=== PATIENT | female | born 1975 | race Caucasian/White ===

== ENCOUNTER → 2016-06-06 | Outpatient (CLI) | payer BC ==
[~2016-06-06] MED LIST: CITA40TA4 PO; CYCL10TA6 PO; HYDR-4079 PO; IBUP-1050 PO; MOMLX PO; MRPSR/15 PO; NORT25CA PO; NRN600 PO; SENN8.6T25 PO
--- NOTE | 2016-06-06 13:09 | MAMMOGRAPHY REPORT ---
BILATERAL DIGITAL DIAGNOSTIC MAMMOGRAM TOMOSYNTHESIS WITH CAD AND TARGETED BILATERAL ULTRASOUND: 06/06 CLINICAL HISTORY: 41 year-old woman with a history of reduction mammoplasty in 2004 presents with le ft breast pain, mostly throughout the lateral breast that is increasing in intensity. No skin eryth ren or nipple discharge. TECHNIQUE: Bilateral CC and MLO 2-D digital and tomosynthesis images, spot magnification CC and ML v iews were obtained. Current study was also evaluated with a Computer Aided Detection (CAD) system. COMPARISON: Comparison is made to exams dated: 12/15/2010 ultrasound, 12/15/2010 mammogram, and 03/09 mammogram - [facility]. BREAST COMPOSITION: There are scattered areas of fibroglandular density in both breasts. FINDINGS: There are 2 circumscribed subcentimeter masses in the upper outer quadrant of the right b reast. The anterior mass in the upper outer middle one third of the breast has not significantly ch anged in size dating back to 2010, and there is a lucent center, suggesting this represents a lymph node. The second slightly larger circumscribed mass in the posterior breast, along the posterior ni pple line on the MLO view measures 7.6 mm. This may have possibly been present on the 2011 exam alt lucero the borders are not as well seen. Further evaluation with ultrasound was performed. There ar e possible microcalcifications in the central left breast, for which additional spot magnification v iews were obtained. No obvious mass is seen in the left breast. No focal areas of architectural di stortion bilaterally. On the spot magnification views of the left breast, the microcalcifications a re scattered, round and punctate in shape. When comparing back to the prior mammogram, they do not appear significantly increased and there is no suspicious grouping or cluster. Targeted ultrasound was performed in the left breast from the 1:00 through 5:00 axes, in the area of pain pointed out by the patient. The pain was worst with scanning in the 1:00 and 2:00 axes. Norm al fibroglandular tissue is seen in the left breast. There is no evidence of a suspicious solid or cystic mass. Ultrasound performed in the right lateral breast demonstrates an isoechoic round solid appearing mas s in the 9:00 axis, 4 cm from the nipple, measuring 5.3 x 5.5 x 7.2 mm. This is thought to correlat e with the slightly larger more posterior mammographic mass. It is indeterminate, warranting furthe r evaluation with tissue sampling. An oval to reniform, circumscribed hypoechoic solid mass with ce ntral echogenicity and central blood flow is identified in the 8:00 axis, 3 cm from the nipple, most compatible with an intramammary lymph node. This correlates with the stable mammographic mass and is benign. IMPRESSION: ACR BI-RADS CATEGORY 4: SUSPICIOUS, TARGETED ULTRASOUND ACR BI-RADS CATEGORY 4: SUSPICI OUS 1. Ultrasound guided core needle biopsy is recommended for an indeterminate isoechoic solid-appeari ng mass in the 9:00 right breast, 4 cm from the nipple. 2. There is no suspicious mammographic or sonographic abnormality to explain the patient's pain thr oughout the lateral left breast. Therefore, clinical follow-up is recommended. Conservative treatm ent options with mineral supplements, evening primrose oil and NSAIDs were also discussed with the p atient. 3. Pending benign pathology results and the right breast, would recommend routine mammography in on e year. These results and recommendations were discussed with the patient at the time of the exam. Approximately 10% of breast cancers are not detected with mammography. A negative mammographic repor t should not delay biopsy if a clinically suggestive mass is present. Denise Denny M.D. ay/:06/06/2016 12:37:32 Supervisor Hand Workers: Bailee GILBERT(R)(M), [facility] letter sent: Abnormal 4/5 BI-RADS Code: ACR BI-RADS Category 4: Suspicious Ultrasound BI-RADS: ACR BI-RADS Category 4: Suspic ious
== END | disposition home or self-care (01) ==
LOC: C.MAMM 10:42
PROVIDERS: ATTEND Family Medicine
DX: N63 Unspecified lump in breast (principal); N64.4 Mastodynia

== ENCOUNTER → 2016-06-13 | Outpatient (CLI) | payer BC ==
--- NOTE | 2016-06-13 11:59 | Discharge Instructions ---
Discharge Instructions Procedure Procedure Date: June 13, 2016. Reason for visit: Right Mass. Discharge Discharge Date: June 13, 2016. Discharge Diagnosis: post right breast ultrasound guided core biopsy Instructions Activity Recommendations: Additional Limitations (see below) Return to School/Work: no limitations Recommended Home Diet: No Limitations Provider Instructions: ACTIVITY RECOMMENDATIONS: * No lifting, pushing, pulling or exercising the affected side for three days. RETURN TO SCHOOL/WORK: * You may return to work/school after the procedure, but do not perform any strenuous activities for 24 to 48 hours. MEDICATIONS: * Tylenol (two 325 mg) every four to six hours if needed for mild pain (if not allergic to Tylenol). DIET: * Resume previous diet. SPECIAL CARE INSTRUCTIONS: * Keep biopsy site dry for 24 hours. May shower after 24 hours, but do not soak (bathe) incision. * May remove Tegaderm (plastic patch) tomorrow AFTER showering. * Leave the steri-strips on for one week. Allow the steri-strips to fall off by themselves. If not off after one week, you may remove them. You may place a Bandaid crosswise over the strips, if desired. * Apply ice 10 minutes on and 10 minutes off as needed. * Wear a bra at bedtime to sleep more comfortably for 2-3 days. * Your referring physician should have the results after approximately 5 to 7 business days. * Call for unusual bleeding, fever, drainage, etc or if you have any questions call [phone] during normal business hours or after hours call Dr Denny, . FOLLOW UP VISIT: Follow-up with Referring Physician as scheduled. Allergies Coded Allergies: Prednisone (Verified Allergy, Unknown, Hot/Cold flashes, shakiness, emotions run wild., 12/20/15) Reported by PTYumiko Kay Recommendations: Call your doctor if: * Temperature above 101 degrees * Pain not relieved by pain medicine ordered * There is increased drainage or redness from any incision * You have any unanswered questions or concerns. Your Doctors Instructions noted above were prepared by provider Denise Denny. Patient Signature Section: Patient Instructions Signature Page Lena Max Patient (or Guardian) Signature/Date: I have read and understand the instructions given to me by my caregivers. Caregiver/RN/Doctor Signature/Date: The above-named patient and/or guardian has received patient instructions on this date. + Original Patient Signature Page (only) stays with chart. Please make copy for patient.
--- NOTE | 2016-06-13 12:50 | MAMMOGRAPHY REPORT ---
UNILATERAL RIGHT DIGITAL DIAGNOSTIC MAMMOGRAM TOMOSYNTHESIS: 06/13/2016 CLINICAL HISTORY: Indeterminate isoechoic solid-appearing mass in the 9:00 right breast, 4 cm from t he nipple. Patient presents for ultrasound-guided core needle biopsy. History of reduction mammopl asty. Please refer to the report from right breast ultrasound guided core biopsy performed [facility] for full detail. IMPRESSION: POST PROCEDURE IMAGING FOR MARKER PLACEMENT Please refer to the report from right breast ultrasound guided core biopsy performed at the [facility] for full detail. Approximately 10% of breast cancers are not detected with mammography. A negative mammographic repor t should not delay biopsy if a clinically suggestive mass is present. Denise Denny M.D. ay/:06/13/2016 12:00:14 Echo Vasc Tech: Milana GILBERT(José)(M), [facility] BI-RADS Code: Post Procedure Imaging For Marker Placement
--- NOTE | 2016-06-13 16:05 | MAMMOGRAPHY REPORT ---
ULTRASOUND GUIDED BIOPSY RIGHT BREAST: 06/13/2016 CLINICAL HISTORY: Indeterminate isoechoic solid 5.5 mm mass in the 9:00 right breast. Patient prese nts for ultrasound-guided core needle biopsy. History of reduction mammoplasty. COMPARISON: Comparison is made to exams dated: 06/06/2016 ultrasound, 06/06/2016 mammogram, 12/15/2010 ultrasound, 12/15/2010 mammogram, and 03/28/2005 mammogram - [facility]. PATIENT CONSENT: The procedure, risks and benefits were discussed with the patient and informed writ ten consent was obtained. Specific risks to this procedure include: bleeding, infection, puncture of adjacent structure, nontarget biopsy, sampling error, metal allergy and medication reaction. PROCEDURE DESCRIPTION: A time out was performed and the right breast was agreed as the site of biops y. The skin was prepped and draped in the usual sterile fashion. The isoechoic solid-appearing mass in the 9:00 right breast was chosen as the target for biopsy. Subcutaneous and intraparenchymal 1% b uffered lidocaine was administered as local anesthesia. A skin incision was made. Through the incis ion, 5 samples were taken with a 14 gauge Achieve biopsy device. A metallic marker was placed at the biopsy site. Hemostasis was achieved after manual compression. The patient tolerated the procedure well and there was no immediate complication. The samples were sent to the pathology department in an appropriately labeled container. Post procedure right CC, XCCL and ML tomosynthesis images were obtained. There is a new ribbon-shap ed metallic biopsy marker within the circumscribed mass in the 9:00 posterior right breast. No sign ificant postbiopsy hematoma is identified. Pathology results are pending. IMPRESSION: ULTRASOUND GUIDED BIOPSY Status post ultrasound guided core needle biopsy of an indeterminate solid mass in the 9:00 right br east, with biopsy marker placed at the site. The patient will receive notification of the biopsy results from her referring physician. Denise Denny M.D. ay/:06/13/2016 13:19:50 Hand Cloth Cutter: Milana CORREIA)(M), [facility]
== END | disposition home or self-care (01) ==
LOC: C.MAMM 10:42
PROVIDERS: ATTEND Family Medicine
DX: N63 Unspecified lump in breast (principal)

== ENCOUNTER 2020-01-02 10:10 | Inpatient (IN) ==
[2020-01-02] MEDS ORDERED: DEXAMETHASONE SOD INJ 4 MG/ML VIAL IV STA (10:24)
[2020-01-02] MEDS ORDERED: SODIUM CHLORIDE 0.9% 1000ML 2,000 ML IV ONE (10:33)
[2020-01-02] MEDS ORDERED: ACETAMINOPHEN 1,000 MG/100 ML VIAL IV STA (10:33)
[2020-01-02] MEDS ORDERED: HALOPERIDOL LACTATE 5 MG/ML 1 ML VIAL ONE ×2 (10:44→10:49)
[2020-01-02] MEDS ORDERED: RAPID SEQUENCE INDUCTION BAG ONE (10:44)
[2020-01-02] MEDS ORDERED: diphenhydrAMINE 50 MG/ML VIAL ONE (10:44)
[2020-01-02] MEDS ORDERED: LORazepam 2 MG/4 ML VIAL ONE (10:44)
[2020-01-02] MEDS ORDERED: LORazepam 1 ML IM ONE (10:45)
[2020-01-02] MEDS ORDERED: diphenhydrAMINE 50 MG/ML VIAL IM ONE (10:45)
[2020-01-02] MEDS ORDERED: HALOPERIDOL LACTATE 5 MG/ML 1 ML VIAL IM ONE (10:45)
[2020-01-02 10:51] LABS: Basophils # (auto) 0.01 K/uL (0-0.2); Basophils % (auto) 0.2 %; Eosinophils # (auto) 0.01 K/uL (0-0.5); Eosinophils % (auto) 0.2 %; Hematocrit (blood only) 33.5 % (37-47); Hemoglobin 10.6 g/dL (12.0-16.0); Immature Granulocytes # (auto) 0.02 K/uL (0.00-0.02); Immature Granulocytes % (auto) 0.4 %; Lymphocytes # (auto) 0.88 K/uL (1.2-3.4); Lymphocytes % (auto) 16.9 %; Mean Corpuscular Hemoglobin 29.2 pg (25-34); Mean Corpuscular Hgb Conc 31.6 g/dL (32-36); Mean Corpuscular Volume 92.3 fL (80-100); Mean Platelet Volume 10.7 fL (7.4-10.4); Monocytes # (auto) 0.38 K/uL (0.11-0.59); Monocytes % (auto) 7.3 %; Neutrophils # (auto) 3.91 K/uL (1.4-6.5); Platelet Count 173 K/uL (130-400); RDW Coefficient of Variation 13.8 % (11.5-14.5); RDW Standard Deviation 46.7 fL (36.4-46.3); Red Blood Count 3.63 M/uL (4.2-5.4); White Blood Count 5.21 K/uL (4.8-10.8)
[2020-01-02] MEDS ORDERED: ETOMIDATE 2 MG/ML 20 ML VIAL IV ONE (11:05)
[2020-01-02 11:06] LABS: Alanine Aminotransferase 17 U/L (12-78); Albumin Level 2.6 gm/dl (3.4-5.0); Aspartate Aminotransferase 31 U/L (15-37); BUN Creatinine Ratio 12.2 (10-20); Blood Urea Nitrogen 17 mg/dl (7-18); Calcium 7.7 mg/dl (8.5-10.1); Carbon Dioxide 26 mmol/L (21-32); Chloride 109 mmol/L (98-107); Est GFR (African American) 55.6; Glucose 203 mg/dl (70-99); Magnesium 2.1 mg/dl (1.8-2.4); Potassium 3.7 mmol/L (3.5-5.1); Sodium 138 mmol/L (136-145)
[2020-01-02] MEDS ORDERED: ROCURONIUM BROMIDE 10 MG/ML 5 ML VIAL IV SCH (11:06)
[2020-01-02] MEDS ORDERED: PROPOFOL IV EMULSION 10 MG/ML 100 ML VIAL IV ONE (11:08)
[2020-01-02 11:09] LABS: Albumin Globulin Ratio 0.7 (0.9-2); Alkaline Phosphatase 83 U/L (45-117); Bilirubin,Total 0.2 mg/dl (0.2-1); Globulin 3.6 gm/dl (2.5-4.0); Total Protein 6.2 gm/dl (6.4-8.2); Troponin I < 0.015 ng/ml (0-0.045)
[2020-01-02 11:10] LABS: Partial Thromboplastin Ratio 1.6; Partial Thromboplastin Time 43.8 Seconds (21.0-31.0); Prothrombin Time 10.8 Seconds (9.0-12.0)
[2020-01-02] MEDS ORDERED: STAT IV Infusion **Titration per Protocol STA ×2 (11:14→15:15)
[2020-01-02] MEDS ORDERED: PROPOFOL BOLUS FROM BAG IV PRN (11:14)
[2020-01-02] MEDS: propofoL 1,000 MG/100 ML VIAL IV SCH ×2 (11:35→17:32)
[2020-01-02 12:14] LABS: Appearance Urine Clear (Clear); Bilirubin Urine Negative (Negative); Blood Urine Trace (Negative); Color Urine Yellow; Epithelial Cell Urine Auto >30 /lpf (0-5); Glucose Urine UA 1+ (Negative); Ketones Urine Negative (Negative); Leukocyte Esterase Urine Negative (Negative); Nitrite Urine Negative (Negative); Protein Urine 2+ (Negative); RBC Urine Automated 0-4 /hpf (0-4); Specific Gravity Urine 1.015 (1.000-1.030); Urobilinogen Urine Negative (Negative)
[2020-01-02] MEDS ORDERED: OPTIRAY 320 125ml IV ONE (12:15)
[2020-01-02 12:21] LABS: Pregnancy Test, Urine Negative (Negative)
--- NOTE | 2020-01-02 12:22 | XRay Report ---
XR chest 1V portable HISTORY: SEPSIS COMPARISON: Chest 11/25/2015. FINDINGS: No pneumothorax. There are low lung volumes. Small bilateral pleural effusions. The heart i s enlarged. There is perihilar interstitial and vascular thickening with perihilar airspace opacities . This most pronounced within the right upper lobe. Findings favor severe pulmonary edema. A pneumoni a could also have a similar appearance. Cervical spinal fusion hardware is noted. Endotracheal tube t erminates 4 cm from the yoni. IMPRESSION: 1. Perihilar airspace opacities, cardiomegaly, small bilateral pleural effusions. Findings favor haley re pulmonary edema. A pneumonia could also have a similar appearance. 2. Endotracheal tube terminates 4 cm from the yoni. ACT 112: Negative or not required by law. Electronically signed by: Parviz Stovall M.D. 01/02/2020 12:21 PM
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
[2020-01-02 12:31] LABS: Mucus Urine Present (None Prsent)
[2020-01-02 12:32] LABS: Bacteria Urine Automated 1+ (Negative)
--- NOTE | 2020-01-02 12:42 | CT Scan Report ---
CT OF THE HEAD WITHOUT CONTRAST CLINICAL HISTORY: Altered mental status. COMPARISON STUDY: No previous studies for comparison. CT DOSE: 765.09 mGycm TECHNIQUE: Helical axial images of the head were obtained without IV contrast. Automated exposure con trol was utilized for the study. A dose lowering technique was utilized adhering to the principles o f ALARA. FINDINGS: This exam is mildly compromised by artifact. No acute intracranial hemorrhage, midline shif t or mass effect is present. The ventricular system is unremarkable. The basal cisterns are patent. N o extra-axial collections are present. There are no findings to suggest acute dural sinus thrombosis or acute territorial infarct. No significant calvarial abnormalities are present. Orogastric tube is at least slightly coiled within the nasopharynx. The tip is within the distal esophagus, as shown on chest CT which will be reported separately. There is mild sinus mucosal thickening. There are secreti ons within the nasopharynx. IMPRESSION: 1. No acute intracranial findings. 2. Orogastric tube coiled within the nasopharynx. Tip of tube is within the distal esophagus, as show n on chest CT which will be reported separately. ACT 112: Negative or not required by law. Electronically signed by: Steve Blackwell M.D. 01/02/2020 12:40 PM
--- NOTE | 2020-01-02 12:48 | CT Scan Report ---
CHEST CTA for PULMONARY ARTERIES CT DOSE: 484.28 mGycm HISTORY: Cough. Positive for Coronavirus. TECHNIQUE: Multiaxial CT images of the chest were performed following the intravenous administration of contrast to evaluate the pulmonary arteries. Maximal intensity projection images were also obtaine d. A dose lowering technique was utilized adhering to the principles of ALARA. COMPARISON STUDY: None. FINDINGS: Normal caliber thoracic aorta with no evidence for dissection. No pleural or pericardial ef fusions. The heart is mildly enlarged. Suboptimal evaluation of the pulmonary arteries due to the pat ient's overlapping arms and respiratory motion artifact. The majority of the subsegmental pulmonary a rteries are nondiagnostic. The remaining pulmonary arteries show no definite filling defects to sugge st pulmonary embolus. Borderline dilated main pulmonary artery measuring up to 3 cm in diameter. Limi maisha views the upper abdomen demonstrate normal adrenal glands. The liver and spleen may be enlarged. Hepatic steatosis is noted. A nasogastric tube terminates in the distal esophagus. This should be adv anced by approximately 10 cm. Endotracheal tube terminates 2 cm from the yoni. A few prominent medi astinal lymph nodes which are likely reactive. No fractures within the visualized osseous structures. No pneumothorax. Extensive bilateral consolidative airspace opacities, right greater than left. IMPRESSION: 1. No evidence for pulmonary embolus with limitations as described above. 2. Extensive bilateral consolidative airspace opacities, right greater than left. This likely represe nts a pneumonia. 3. The nasogastric tube terminates in the distal esophagus. This should be advanced by approximately 10 cm. 4. The endotracheal tube terminates 2 cm from the yoni. ACT 112: Negative or not required by law. Electronically signed by: Parviz Stovall M.D. 01/02/2020 12:46 PM
[2020-01-02 13:25] LABS: Allen Test Pos (Pos); Base Excess ABG -7.1 mEq/L (-9-1.8); HCO3 ABG 21 mmol/L (19-24); Oxygen Saturation ABG 92.1 % (90-95); PCO2 ABG 52 mmHg (35-46); PO2 ABG 69 mmHg (80-95); pH ABG 7.21 (7.35-7.45)
[2020-01-02 13:48] LABS: Amphetamines+Metham, Urine Neg (Neg); Barbiturates, Urine Neg (Neg); Benzodiazepine, Urine Neg (Neg); Cocaine, Urine Neg (Neg); MDMA (Ecstacy), Urine Neg (Neg); Methadone, Urine Neg (Neg); Opiate, Urine Pos (Neg); Phencyclidine, Urine Neg (Neg)
--- NOTE | 2020-01-02 13:59 | History & Physical Report ---
Date of Service January 02, 2020 Assessment & Plan (1) Pneumonia due to COVID-19 virus: Son recently ill with COVID-19. Patient was seen in outpatient clinic on 10/31/19. SARS-CoV-2 PCR ordered- results pending. Patient presented to ED with fever, dyspnea, hypoxia, delirium. Chest x-ray and CT demonstrated bilateral infiltrates consistent with COVID pneumonia. SARS-CoV-2 PCR in ED positive. Lymphocyte count 880. Procalcitonin 0.60. Intubated in ED & admitted to ICU. Consult Pulmonary Medicine / CCM. Further COVID-specific management per Pulm / CCM. (2) Acute respiratory failure with hypoxia: O2 sats 72% on RA at home when EMS arrived. Intubated in ED. No apparent pulmonary emboli per CTA chest. Hypoxia probably secondary to COVID pneumonia. Continue supplemental O2 and ventilatory support as needed. (3) Altered mental status: Very confused this morning. No acute findings on CT of head. Probably multifactorial toxic / metabolic encephalopathy due to hypoxia, COVID- 19 infection, etc. (4) SIMIN (obstructive sleep apnea): Sleep apnea on BiPAP at home. Resume HS BiPAP after extubation. (5) Chronic narcotic use: Chronic neck and back pain treated with oxycodone / acetaminophen. Monitor for signs / symptoms of narcotic withdrawal. (6) Abnormal urinalysis: UA shows 10-30 WBC's, negative leukocyte esterase, negative nitrites, many epithelial cells. UTI unlikely. (7) GERD (gastroesophageal reflux disease): Continue PPI. (8) Diabetes mellitus type 2, controlled: Diet-controlled. Random glucose in ED 203. Received dexamethasone. Check Hgb A1c. Monitor blood sugars. Insulin coverage per protocol. (9) DVT prophylaxis: SQ enoxaparin. Ambulate when able. (10) Discharge planning issues: Discharge disposition to be determined. Family Medicine follow-up with Dr. Barone. Uriah Pineda given update by phone. He would appreciate updates from providers. His cell #: [phone] History of Present Illness Chief Complaint: cough, SOB, confusion Primary Care Provider: Neal Barone MD 44 YO female followed by Dr. Barone. History of diabetes mellitus type 2, chronic pain, and other problems noted below. The following history obtained from ED staff, clinic records, son by phone. Pt developed fever and cough about 1 week ago. She was seen at [facility]] 2 days prior to admission. Vital signs and O2 sats were OK. SARS-CoV-2 PCR was ordered (results pending). Today she was more SOB and confused. EMS summoned. O2 saturation was 72% in the field. Received O2 and brought to the ED for further management. In the ED she was noted to be febrile and tachycardic. She was very confused and agitated. Intubated in ED and placed on mechanical ventilation. Son diagnosed with COVID-19 this week. Allergies Allergy/AdvReac Type Severity Reaction Status Date / Time prednisone Allergy Unknown Hot/Cold Verified 01/02/20 12:27 flashes, shakiness, emotions run wild. Home Medications Medication Instructions Recorded Confirmed Type albuterol sulfate 2 puff INHALATION QID PRN 01/02/20 01/02/20 History buspirone 7.5 - 15 mg PO BID PRN 01/02/20 01/02/20 History cholecalciferol (vitamin D3) 10 mcg PO QAM 01/02/20 01/02/20 History [Vitamin D3] cyclobenzaprine 10 mg PO TID PRN 01/02/20 01/02/20 History diclofenac sodium [Voltaren] 4 g TOPICAL QID 01/02/20 01/02/20 History gabapentin 1,200 mg PO TID 01/02/20 01/02/20 History indomethacin 50 mg PO TIDM PRN 01/02/20 01/02/20 History morphine 15 mg PO BID PRN 01/02/20 01/02/20 History mv,Ca,min-iron kwwn-KB-epeicb 1 tab PO DAILY 01/02/20 01/02/20 History [Hair,Skin and Nails] omeprazole 20 mg PO DAILYBB 01/02/20 01/02/20 History oxycodone-acetaminophen 1 tab PO Q8H PRN 01/02/20 01/02/20 History polyethylene glycol 3350 [Miralax] 17 g PO DAILY PRN 01/02/20 01/02/20 History pyridoxine (vitamin B6) [Vitamin 250 mg PO QAM 01/02/20 01/02/20 History B-6] sennosides [senna] 34.4 mg PO QAM PRN 01/02/20 01/02/20 History topiramate 25 mg PO BID 01/02/20 01/02/20 History venlafaxine 75 mg PO DAILY 01/02/20 01/02/20 History Past Med/Surg History Medical History (Updated 01/02/20 @ 15:50 by Crow Stapleton MD) Anxiety Back pain Chronic narcotic use Diabetes mellitus type 2, controlled GERD (gastroesophageal reflux disease) SIMIN (obstructive sleep apnea) current settings BIPAP 14 IPAP/ 10 EPAP start ramp [id number] T2DM (type 2 diabetes mellitus) a1c 7.1 12/17/19 not on any oral hypoglycemics Surgical History (Updated 01/02/20 @ 15:50 by Crow Stapleton MD) History of bilateral breast reduction surgery Status post breast reduction Status post cervical spinal fusion Status post section Status post hysterectomy Family History Grandmother (Maternal) Breast cancer Father Arthritis Social History Smoking Status: Unknown if ever smoked Preferred Language: [place] Communication Ability: Impaired Communication Ability Comment: vented Hospital Fellow Required: No Beliefs That Will Affect Care: None marital status: / Current Living Situation Comment: [facility] Feels Safe at Home: Yes Assistive Devices: Oxygen - Continuous Review of Systems Review of Systems: Unobtainable due to cognitive status and Unobtainable due to endotracheal tube Physical Exam Physical Exam: VS- as noted Constitutional- adult female, acutely ill Eyes- PERRL, anicteric sclerae, conjunctivae normal ENMT- external ear and nose normal; oral ETT Neck- trachea midline; no thyromegaly Respiratory- scattered rales; no significant wheezing Cardiovascular- distant heart sounds; RRR, no murmur/gallop/rub appreciated; no JVD; no pretibial edema; normal capillary refill Chest- no abnormalities Abdomen- normal bowel sounds, soft, nontender, nondistended; no palpable masses or hepatosplenomegaly Musculoskeletal- no cyanosis Skin- warm & dry; normal color; no rashes Neurologic- sedated; moves all 4 extremities Psychiatric- sedated Genitourinary- Torrez cath Lymphatic- no cervical adenopathy Results & Data Results & Data ([facility]) Vital Signs (Past 12 Hours) Vital Signs Temp Pulse Resp BP Pulse Ox 01/02/20 13:01 130 H 21 94 01/02/20 13:00 133 H 29 H 110/75 94 01/02/20 12:45 132 H 19 94 01/02/20 12:42 135 H 25 H 137/80 91 01/02/20 12:40 136 H 29 H 01/02/20 12:01 129 H 16 99 01/02/20 12:00 129 H 16 135/79 100 01/02/20 11:46 131 H 16 97 01/02/20 11:45 38.2 C H 130 H 16 137/80 97 01/02/20 11:30 124 H 16 111/70 95 01/02/20 11:18 122 H 16 97 01/02/20 11:08 94 01/02/20 10:18 117 H 13 103/72 98 Laboratory Results Laboratory Results - last 24 hr 01/02/20 01/02/20 01/02/20 10:20 10:20 10:20 WBC 5.21 RBC 3.63 L Hgb 10.6 L Hct 33.5 L MCV 92.3 MCH 29.2 MCHC 31.6 L RDW Std Deviation 46.7 H RDW Coeff of Nacho 13.8 Plt Count 173 MPV 10.7 H Immature Gran % (Auto) 0.4 Neut % (Auto) 75.0 Lymph % (Auto) 16.9 [place] % (Auto) 7.3 Eos % (Auto) 0.2 Baso % (Auto) 0.2 Neut # (Auto) 3.91 Lymph # (Auto) 0.88 L [place] # (Auto) 0.38 Eos # (Auto) 0.01 Baso # (Auto) 0.01 Immature Gran # (Auto) 0.02 PT 10.8 INR 1.0 APTT 43.8 H PTT Ratio 1.6 ABG pH ABG pCO2 ABG pO2 ABG HCO3 ABG O2 Saturation ABG Base Excess Ilya Test Barometric Pressure Oxygen Given Sodium 138 Potassium 3.7 Chloride 109 H Carbon Dioxide 26 Anion Gap 3.0 BUN 17 Creatinine 1.35 H Est Cr Clr Drug Dosing Not Reportable Est GFR ( Amer) 55.6 Est GFR (Non-Af Amer) 48.0 BUN/Creatinine Ratio 12.2 Glucose 203 H Lactate Calcium 7.7 L Magnesium 2.1 Total Bilirubin 0.2 AST 31 ALT 17 Alkaline Phosphatase 83 Troponin I < 0.015 Total Protein 6.2 L Albumin 2.6 L Globulin 3.6 Albumin/Globulin Ratio 0.7 L Procalcitonin Urine Color Urine Appearance Urine pH Ur Specific [place] Urine Protein Urine Glucose (UA) Urine Ketones Urine Blood Urine Nitrite Urine Bilirubin Urine Urobilinogen Ur Leukocyte Esterase Urine WBC (Auto) Urine RBC (Auto) U Hyaline Cast (Auto) U Epithel Cells (Auto) Urine Bacteria (Auto) Ur Renal Epithelial Cell WBC Casts Urine Mucus Urine Test Urine Opiates Screen U Codeine Confrm GC/MS Ur Morphine (GC/MS) Ur Hydrocodone (GC/MS) Ur Norhydrocodone Ur Noroxycodone Urine Oxycodone (GC/MS) U Oxymorphone GC/MS Ur Methadone, Qual Ur Hydromorphone (GC/MS) Urine Barbiturates Ur Phencyclidine (PCP) U Amphetamin/Meth Scrn MDMA (Ecstasy) Screen U Benzodiazepines Scrn Ur Cocaine Metabolite U Marijuana (THC) Screen Drug Screen Comment COVID-19 Eval Order SARS-CoV-2, RNA, NAAT 01/02/20 01/02/20 01/02/20 10:20 10:20 11:02 WBC RBC Hgb Hct MCV MCH MCHC RDW Std Deviation RDW Coeff of Nacho Plt Count MPV Immature Gran % (Auto) Neut % (Auto) Lymph % (Auto) [place] % (Auto) Eos % (Auto) Baso % (Auto) Neut # (Auto) Lymph # (Auto) [place] # (Auto) Eos # (Auto) Baso # (Auto) Immature Gran # (Auto) PT INR APTT PTT Ratio ABG pH ABG pCO2 ABG pO2 ABG HCO3 ABG O2 Saturation ABG Base Excess Ilya Test Barometric Pressure Oxygen Given Sodium Potassium Chloride Carbon Dioxide Anion Gap BUN Creatinine Est Cr Clr Drug Dosing Est GFR ( Amer) Est GFR (Non-Af Amer) BUN/Creatinine Ratio Glucose Lactate Cancelled Calcium Magnesium Total Bilirubin AST ALT Alkaline Phosphatase Troponin I Total Protein Albumin Globulin Albumin/Globulin Ratio Procalcitonin 0.60 H Urine Color Urine Appearance Urine pH Ur Specific [place] Urine Protein Urine Glucose (UA) Urine Ketones Urine Blood Urine Nitrite Urine Bilirubin Urine Urobilinogen Ur Leukocyte Esterase Urine WBC (Auto) Urine RBC (Auto) U Hyaline Cast (Auto) U Epithel Cells (Auto) Urine Bacteria (Auto) Ur Renal Epithelial Cell WBC Casts Urine Mucus Urine Test Urine Opiates Screen U Codeine Confrm GC/MS Ur Morphine (GC/MS) Ur Hydrocodone (GC/MS) Ur Norhydrocodone Ur Noroxycodone Urine Oxycodone (GC/MS) U Oxymorphone GC/MS Ur Methadone, Qual Ur Hydromorphone (GC/MS) Urine Barbiturates Ur Phencyclidine (PCP) U Amphetamin/Meth Scrn MDMA (Ecstasy) Screen U Benzodiazepines Scrn Ur Cocaine Metabolite U Marijuana (THC) Screen Drug Screen Comment COVID-19 Eval [facility] SARS-[facility]-2, RNA, NAAT 01/02/20 01/02/20 01/02/20 11:02 11:45 11:45 WBC RBC Hgb Hct MCV MCH MCHC RDW Std Deviation RDW Coeff of Nacho Plt Count MPV Immature Gran % (Auto) Neut % (Auto) Lymph % (Auto) [place] % (Auto) Eos % (Auto) Baso % (Auto) Neut # (Auto) Lymph # (Auto) [place] # (Auto) Eos # (Auto) Baso # (Auto) Immature Gran # (Auto) PT INR APTT PTT Ratio ABG pH ABG pCO2 ABG pO2 ABG HCO3 ABG O2 Saturation ABG Base Excess Ilya Test Barometric Pressure Oxygen Given Sodium Potassium Chloride Carbon Dioxide Anion Gap BUN Creatinine Est Cr Clr Drug Dosing Est GFR ( Amer) Est GFR (Non-Af Amer) BUN/Creatinine Ratio Glucose Lactate Calcium Magnesium Total Bilirubin AST ALT Alkaline Phosphatase Troponin I Total Protein Albumin Globulin Albumin/Globulin Ratio Procalcitonin Urine Color Yellow Urine Appearance Clear Urine pH 6.0 Ur Specific [place] 1.015 Urine Protein 2+ H Urine Glucose (UA) 1+ H Urine Ketones Negative Urine Blood Trace H Urine Nitrite Negative Urine Bilirubin Negative Urine Urobilinogen Negative Ur Leukocyte Esterase Negative Urine WBC (Auto) 10-30 H Urine RBC (Auto) 0-4 U Hyaline Cast (Auto) 5-10 H U Epithel Cells (Auto) >30 H Urine Bacteria (Auto) 1+ H Ur Renal Epithelial Cell Not Reportable WBC Casts 1-5 H Urine Mucus Present A Urine Test Urine Opiates Screen Pos H U Codeine Confrm GC/MS Ur Morphine (GC/MS) Ur Hydrocodone (GC/MS) Ur Norhydrocodone Ur Noroxycodone Urine Oxycodone (GC/MS) U Oxymorphone GC/MS Ur Methadone, Qual Neg Ur Hydromorphone (GC/MS) Urine Barbiturates Neg Ur Phencyclidine (PCP) Neg U Amphetamin/Meth Scrn Neg MDMA (Ecstasy) Screen Neg U Benzodiazepines Scrn Neg Ur Cocaine Metabolite Neg U Marijuana (THC) Screen Neg Drug Screen Comment COVID-19 Eval Order SARS-CoV-2, RNA, NAAT POSITIVE A* 01/02/20 01/02/20 01/02/20 11:45 12:09 13:16 WBC RBC Hgb Hct MCV MCH MCHC RDW Std Deviation RDW Coeff of Nacho Plt Count MPV Immature Gran % (Auto) Neut % (Auto) Lymph % (Auto) [place] % (Auto) Eos % (Auto) Baso % (Auto) Neut # (Auto) Lymph # (Auto) [place] # (Auto) Eos # (Auto) Baso # (Auto) Immature Gran # (Auto) PT INR APTT PTT Ratio ABG pH 7.21 L ABG pCO2 52 H ABG pO2 69 L ABG HCO3 21 ABG O2 Saturation 92.1 ABG Base Excess -7.1 Ilya Test Pos Barometric Pressure 735.5 Oxygen Given 70% Sodium Potassium Chloride Carbon Dioxide Anion Gap BUN Creatinine Est Cr Clr Drug Dosing Est GFR ( Amer) Est GFR (Non-Af Amer) BUN/Creatinine Ratio Glucose Lactate Calcium Magnesium Total Bilirubin AST ALT Alkaline Phosphatase Troponin I Total Protein Albumin Globulin Albumin/Globulin Ratio Procalcitonin Urine Color Urine Appearance Urine pH Ur Specific [place] Urine Protein Urine Glucose (UA) Urine Ketones Urine Blood Urine Nitrite Urine Bilirubin Urine Urobilinogen Ur Leukocyte Esterase Urine WBC (Auto) Urine RBC (Auto) U Hyaline Cast (Auto) U Epithel Cells (Auto) Urine Bacteria (Auto) Ur Renal Epithelial Cell WBC Casts Urine Mucus Urine Test Negative Urine Opiates Screen U Codeine Confrm GC/MS Pending Ur Morphine (GC/MS) Pending Ur Hydrocodone (GC/MS) Pending Ur Norhydrocodone Pending Ur Noroxycodone Pending Urine Oxycodone (GC/MS) Pending U Oxymorphone GC/MS Pending Ur Methadone, Qual Ur Hydromorphone (GC/MS) Pending Urine Barbiturates Ur Phencyclidine (PCP) U Amphetamin/Meth Scrn MDMA (Ecstasy) Screen U Benzodiazepines Scrn Ur Cocaine Metabolite U Marijuana (THC) Screen Drug Screen Comment Pending COVID-19 Eval Order SARS-CoV-2, RNA, NAAT 01/02/20 14:50 WBC RBC Hgb Hct MCV MCH MCHC RDW Std Deviation RDW Coeff of Nacho Plt Count MPV Immature Gran % (Auto) Neut % (Auto) Lymph % (Auto) [place] % (Auto) Eos % (Auto) Baso % (Auto) Neut # (Auto) Lymph # (Auto) [place] # (Auto) Eos # (Auto) Baso # (Auto) Immature Gran # (Auto) PT INR APTT PTT Ratio ABG pH ABG pCO2 ABG pO2 ABG HCO3 ABG O2 Saturation ABG Base Excess Ilya Test Barometric Pressure Oxygen Given Sodium Potassium Chloride Carbon Dioxide Anion Gap BUN Creatinine Est Cr Clr Drug Dosing Est GFR ( Amer) Est GFR (Non-Af Amer) BUN/Creatinine Ratio Glucose Lactate 1.2 Calcium Magnesium Total Bilirubin AST ALT Alkaline Phosphatase Troponin I Total Protein Albumin Globulin Albumin/Globulin Ratio Procalcitonin Urine Color Urine Appearance Urine pH Ur Specific [place] Urine Protein Urine Glucose (UA) Urine Ketones Urine Blood Urine Nitrite Urine Bilirubin Urine Urobilinogen Ur Leukocyte Esterase Urine WBC (Auto) Urine RBC (Auto) U Hyaline Cast (Auto) U Epithel Cells (Auto) Urine Bacteria (Auto) Ur Renal Epithelial Cell WBC Casts Urine Mucus Urine Test Urine Opiates Screen U Codeine Confrm GC/MS Ur Morphine (GC/MS) Ur Hydrocodone (GC/MS) Ur Norhydrocodone Ur Noroxycodone Urine Oxycodone (GC/MS) U Oxymorphone GC/MS Ur Methadone, Qual Ur Hydromorphone (GC/MS) Urine Barbiturates Ur Phencyclidine (PCP) U Amphetamin/Meth Scrn MDMA (Ecstasy) Screen U Benzodiazepines Scrn Ur Cocaine Metabolite U Marijuana (THC) Screen Drug Screen Comment COVID-19 Eval Order SARS-CoV-2, RNA, NAAT Diagnostic Findings PORTABLE CHEST X-RAY Reviewed by the undersigned and formally interpreted by Radiology: FINDINGS: No pneumothorax. There are low lung volumes. Small bilateral pleural effusions. The heart is enlarged. There is perihilar interstitial and vascular thickening with perihilar airspace opacities. This most pronounced within the right upper lobe. Findings favor severe pulmonary edema. A pneumonia could also have a similar appearance. Cervical spinal fusion hardware is noted. Endotracheal tube terminates 4 cm from the yoni. IMPRESSION: 1. Perihilar airspace opacities, cardiomegaly, small bilateral pleural effusions. Findings favor severe pulmonary edema. A pneumonia could also have a similar appearance. 2. Endotracheal tube terminates 4 cm from the yoni. Electronically signed by: Parviz Stovall M.D. 01/02/2020 12:[address] HEAD FINDINGS: This exam is mildly compromised by artifact. No acute intracranial hemorrhage, midline shift or mass effect is present. The ventricular system is unremarkable. The basal cisterns are patent. No extra-axial collections are present. There are no findings to suggest acute dural sinus thrombosis or acute territorial infarct. No significant calvarial abnormalities are present. Orogastric tube is at least slightly coiled within the nasopharynx. The tip is within the distal esophagus, as shown on chest CT which will be reported separately. There is mild sinus mucosal thickening. There are secretions within the nasopharynx. IMPRESSION: 1. No acute intracranial findings. 2. Orogastric tube coiled within the nasopharynx. Tip of tube is within the distal esophagus, as shown on chest CT which will be reported separately. Electronically signed by: Steve Blackwell M.D. 01/02/2020 12:40 PM CTA CHEST FINDINGS: Normal caliber thoracic aorta with no evidence for dissection. No pleural or pericardial effusions. The heart is mildly enlarged. Suboptimal evaluation of the pulmonary arteries due to the patient's overlapping arms and respiratory motion artifact. The majority of the subsegmental pulmonary arteries are nondiagnostic. The remaining pulmonary arteries show no definite filling defects to suggest pulmonary embolus. Borderline dilated main pulmonary artery measuring up to 3 cm in diameter. Limited views the upper abdomen demonstrate normal adrenal glands. The liver and spleen may be enlarged. Hepatic steatosis is noted. A nasogastric tube terminates in the distal esophagus. This should be advanced by approximately 10 cm. Endotracheal tube terminates 2 cm from the yoni. A few prominent mediastinal lymph nodes which are likely reactive. No fractures within the visualized osseous structures. No pneumothorax. Extensive bilateral consolidative airspace opacities, right greater than left. IMPRESSION: 1. No evidence for pulmonary embolus with limitations as described above. 2. Extensive bilateral consolidative airspace opacities, right greater than left. This likely represents a pneumonia. 3. The nasogastric tube terminates in the distal esophagus. This should be advanced by approximately 10 cm. 4. The endotracheal tube terminates 2 cm from the yoni. Electronically signed by: Parviz Stovall M.D. 01/02/2020 12:46 PM ECG Additional Comments: EKG performed at [address] at 120/min. Code Status & VTE Plan Code Status Full code.
[2020-01-02] MEDS ORDERED: MIDAZOLAM HCL 125 MG/250 ML BAG IV SCH (15:15)
[2020-01-02] MEDS ORDERED: MIDAZOLAM BOLUS FROM BAG IV PRN (15:15)
[2020-01-02] MEDS: fentaNYL DRIP 1,250 MCG/250 ML BAG IV SCH (15:30)
[2020-01-02] MEDS ORDERED: ICU PROTOCOL FOR HYPERGLYCEMIA PRN (15:44)
[2020-01-02] MEDS ORDERED: INFLUENZA ADMINISTRATION CHARGE ONE (15:53)
[2020-01-02] MEDS ORDERED: INFLUENZA VACCINE HIGH DOSE 65+ 0.7 ML SYR IM ONE (15:53)
[2020-01-02] MEDS ORDERED: INFLUENZA VIRUS QUAD VACCINE 0.5 ML SYR IM ONE (16:00)
--- NOTE | 2020-01-02 16:43 | Critical Care Consultation ---
Date of Consultation January 02, 2020 Assessment & Plan (1) Acute respiratory failure with hypoxia: (2) Pneumonia due to COVID-19 virus: (3) COVID-19: Impression: 44-year-old female with Covid pneumonia intubated in the emergency room due to altered mental status and combative behavior. She is on minimal vent settings currently and appears to be oxygenating well. Recommendations: 1. Neurologic: Suspect metabolic encephalopathy possibly related to hypercarbic respiratory failure given the patient's history of severe sleep disordered breathing and potential hypoxemic encephalopathy given her Covid diagnosis. Imaging was negative. Low suspicion for seizure. Continue sedation with propofol, fentanyl, and Versed and wean as tolerated for SBT once pulmonary parameters are acceptable. May benefit from Precedex if hemodynamically stable. History of chronic pain issues so will need to be aware of potential withdrawal syndrome. Should be covered by fentanyl for now 2. Cardiovascular: The patient remains hemodynamically stable. Continue to follow clinically. 3. Pulmonary: Hypoxemic respiratory failure secondary to COVID-19 pneumonia: Continue ARDS net ventilator strategy. Check pro calcitonin. Will place empirically on Rocephin and azithromycin for potential secondary bacterial pneumonia. Check tracheal aspirate. 4. GI: Initiate PPI. The enteric tube appeared coiled on the CT scan but was apparently advanced by ER nursing staff. Holding on tube feeding for now and will recheck position on chest x-ray in the morning. If unable to wean for mechanical ventilation in the next 24 hours we will consider initiation of tube feeding. 5. Endocrine: Pharmacy consult for glycemic management. 6. Renal: No current issues. Electrolyte replacement per protocol. May benefit from gentle diuresis. 7. ID: Initiating remdesivir and dexamethasone as well as Rocephin and azithromycin. 8. DVT prophylaxis with Lovenox. PPI in place. 9. Patient's overall prognosis is guarded. We will continue to support in the ICU for now. No family immediately available. A total of 77 minutes in critical care time exclusive of procedures spent in evaluation management of this patient History of Present Illness Attending Physician: Crow Stapleton MD History of Present Illness Asked by hospitalist to assist in management of this patient admitted with COVID-19 pneumonia and hypoxemic respiratory failure. Patient was admitted in the emergency room due to belligerence status and confusion. History is obtained from review of electronic medical record, discussion with the ER staff and hospitalist. Patient is unable to provide any history as she is intubated on the ventilator. The patient is a 44-year-old female with a history of diabetes and prior substance abuse as well as chronic pain. She developed fever and cough about a week ago and was seen in the [facility] clinic 2 days prior to admission. She had Covid testing performed but unfortunately the results were not available to review. She developed progressive dyspnea and confusion so was brought to the emergency room. Per EMS she was significantly hypoxemic with oxygen saturations on room air reported in the 70% range. She was placed on 6 L in the emergency room initially with improvement in her oxygen saturations however the patient then became belligerent and was biting and kicking at staff as well as coughing on them. They tried benzodiazepines and haloperidol to try and improve her agitation however these were unsuccessful and the patient eventually required intubation today maintain her safety and staff safety. She has been oxygenating fine and was transferred to the ICU for further management. She has been hemodynamically stable. She did receive Decadron in the emergency room. Allergies Allergy/AdvReac Type Severity Reaction Status Date / Time prednisone Allergy Unknown Hot/Cold Verified 01/02/20 12:27 flashes, shakiness, emotions run wild. Home Medications Medication Instructions Recorded Confirmed Type albuterol sulfate 2 puff INHALATION QID PRN 01/02/20 01/02/20 History buspirone 7.5 - 15 mg PO BID PRN 01/02/20 01/02/20 History cholecalciferol (vitamin D3) 10 mcg PO QAM 01/02/20 01/02/20 History [Vitamin D3] cyclobenzaprine 10 mg PO TID PRN 01/02/20 01/02/20 History diclofenac sodium [Voltaren] 4 g TOPICAL QID 01/02/20 01/02/20 History gabapentin 1,200 mg PO TID 01/02/20 01/02/20 History indomethacin 50 mg PO TIDM PRN 01/02/20 01/02/20 History morphine 15 mg PO BID PRN 01/02/20 01/02/20 History mv,Ca,min-iron [id number] 1 tab PO DAILY 01/02/20 01/02/20 History [Hair,Skin and Nails] omeprazole 20 mg PO DAILYBB 01/02/20 01/02/20 History oxycodone-acetaminophen 1 tab PO Q8H PRN 01/02/20 01/02/20 History polyethylene glycol 3350 [Miralax] 17 g PO DAILY PRN 01/02/20 01/02/20 History pyridoxine (vitamin B6) [Vitamin 250 mg PO QAM 01/02/20 01/02/20 History B-6] sennosides [senna] 34.4 mg PO QAM PRN 01/02/20 01/02/20 History topiramate 25 mg PO BID 01/02/20 01/02/20 History venlafaxine 75 mg PO DAILY 01/02/20 01/02/20 History Patient History Medical History (Updated 01/02/20 @ 15:50 by Crow Stapleton MD) Anxiety Back pain Chronic narcotic use Diabetes mellitus type 2, controlled GERD (gastroesophageal reflux disease) SIMIN (obstructive sleep apnea) current settings BIPAP 14 IPAP/ 10 EPAP start ramp 8cmh20 T2DM (type 2 diabetes mellitus) a1c 7.1 12/17/19 not on any oral hypoglycemics Surgical History (Updated 01/02/20 @ 15:50 by Crow Stapleton MD) History of bilateral breast reduction surgery Status post breast reduction Status post cervical spinal fusion Status post section Status post hysterectomy Family History Grandmother (Maternal) Breast cancer Father Arthritis Social History Smoking Status: Unknown if ever smoked Preferred Language: Turkmen Communication Ability: Impaired Communication Ability Comment: vented Director Of [employer] Required: No Beliefs That Will Affect Care: None marital status: / Current Living Situation Comment: [facility] Feels Safe at Home: Yes Assistive Devices: Oxygen - Continuous Review of Systems Review of Systems: Unobtainable due to endotracheal tube Physical Exam Constitutional: well developed and + mechanically ventilated Intubated and sedated Neck: trachea midline, no thyromegaly Respiratory: normal respiratory effort Coarse breath sounds bilaterally Cardiovascular: RRR, no murmur, no edema Gastrointestinal (Abdomen): normal bowel sounds, soft, nontender, no hepatosplenomegaly Musculoskeletal: Extremities: extremities normal to inspection Skin: no rashes, warm and dry Neurologic: Nonfocal exam Lymphatic: no cervical lymphadenopathy Results & Data Results & Data ([facility]) Vital Signs (Past 12 Hours) Vital Signs Temp Pulse Pulse Resp BP BP Pulse Ox 01/02/20 15:41 38.4 C H 108 H 18 95/59 L 97 01/02/20 15:30 38.4 C H 109 H 23 95/59 L 93 01/02/20 14:37 111 H 19 106/58 L 01/02/20 14:31 110 H 19 01/02/20 14:30 111 H 21 110/62 01/02/20 14:16 115 H 20 96 01/02/20 14:15 114 H 18 104/64 96 01/02/20 14:01 115 H 19 96 01/02/20 14:00 115 H 19 100/57 L 96 01/02/20 13:54 119 H 21 96/45 L 95 01/02/20 13:53 119 H 24 97/62 L 94 01/02/20 13:45 119 H 21 95 01/02/20 13:31 131 H 16 01/02/20 13:30 130 H 27 H 127/66 01/02/20 13:15 127 H 22 01/02/20 13:01 130 H 21 94 01/02/20 13:00 133 H 29 H 110/75 94 01/02/20 12:45 132 H 19 94 01/02/20 12:42 135 H 25 H 137/80 91 01/02/20 12:40 136 H 29 H 01/02/20 12:01 129 H 16 99 01/02/20 12:00 129 H 16 135/79 100 01/02/20 11:46 131 H 16 97 01/02/20 11:45 38.2 C H 130 H 16 137/80 97 01/02/20 11:30 38.5 C H 124 H 16 111/70 95 01/02/20 11:18 122 H 16 97 01/02/20 11:08 94 01/02/20 10:18 117 H 13 103/72 98 Laboratory Results 01/02/20 10:20 01/02/20 10:20 Diagnostic Findings Chest x-ray and CT scans were independently reviewed. There are diffuse pulmonary infiltrates. CT angiogram was performed which was suboptimal and did not demonstrate subsegmental pulmonary arteries but no obvious PE identified. No pleural effusion. CT of the head was unrevealing. Coding Level of Care Code Critical Care 1st 30-74 mins Diagnoses Acute respiratory failure with hypoxia J96.01 Pneumonia due to COVID-19 virus U07.1; J12.89 COVID-19 U07.1 Time Spent (min) 77 Comment [id number] and [id number]
[2020-01-02] MEDS ORDERED: REMDESIVIR 200 MG in SODIUM CHLORIDE 0.9% 210 ML IV STA (16:44)
[2020-01-02] MEDS ORDERED: PHARMACY GLYCEMIC MGMT CONSULT PRN (17:05)
[2020-01-02] MEDS ORDERED: INSULIN HUMAN NPH SC ONE (17:15)
[2020-01-02] MEDS ORDERED: INSULIN ASPART 100 UNITS/ML 3 ML PEN SC ONE (17:15)
[2020-01-02] MEDS ORDERED: INSULIN HUMAN REGULAR PER UNIT 9 UNITS in SYRINGE 8.91 ML IV ONE (17:30)
[2020-01-02] MEDS: cefTRIAXone SODIUM 2,000 MG in DEXTROSE 5% 50 ML IV SCH (17:33)
[2020-01-02] MEDS: SODIUM CHLORIDE 0.9% 10ML FLUSH IV SCH (17:34)
[2020-01-02] MEDS: AZITHROMYCIN 250 MG in DEXTROSE 5% 250 ML IV SCH (18:19)
[2020-01-02] MEDS: ENOXAPARIN INJ 40 MG/0.4 ML SYR SQ SCH (19:51)
[2020-01-02] MEDS: INSULIN ASPART 100 UNITS/ML 3 ML PEN SC SCH (20:01)
--- NOTE | 2020-01-02 23:11 | Electrocardiogram Report ---
Test Reason : Blood Pressure : / mmHG Vent. Rate : 118 BPM Atrial Rate : 118 BPM P-R Int : 122 ms QRS Dur : 082 ms QT Int : 306 ms P-R-T Axes : 045 033 038 degrees QTc Int : 428 ms Poor data quality, interpretation may be adversely affected Sinus tachycardia Low voltage QRS Borderline ECG When compared with ECG of 26-NOV-2015 06:48, No significant change was found Confirmed by Chidi Li ([id number]) on 01/02/2020 11:10:55 PM Referred By: Confirmed By:Chidi Li
[2020-01-03] MEDS: INSULIN ASPART 100 UNITS/ML 3 ML PEN SC SCH ×6 (00:51→20:23)
[2020-01-03] MEDS: fentaNYL DRIP 1,250 MCG/250 ML BAG IV SCH ×2 (04:10→14:59)
[2020-01-03] MEDS: propofoL 1,000 MG/100 ML VIAL IV SCH ×6 (04:10→22:59)
[2020-01-03 04:37] LABS: iSTAT Allen Test Pass; iSTAT Art Bld Gas pCO2 Correct 41 mmHg (35-46); iSTAT Art Bld Gas pH Corrected 7.337 (7.35-7.45); iSTAT Arterial Blood Gas HCO3 22 meg/L (19-24); iSTAT Arterial Blood Gas pCO2 40 mmHg (35-46); iSTAT Arterial Blood Gas pH 7.35 (7.35-7.45); iSTAT Arterial Blood Gas pO2 71 mmHg (80-95); iSTAT Arterial Blood Gas pO2 C 75; iSTAT Carbon Dioxide 23 mmol/L (24-31); iSTAT FiO2 40 %; iSTAT Hematocrit 29 % (37-47); iSTAT Hemoglobin 9.9 g/dl (12.0-16.0); iSTAT Potassium 3.6 mmol/L (3.3-5.0); iSTAT Site L Radial; iSTAT Sodium 144 mmol/L (135-144)
[2020-01-03 05:13] LABS: Eosinophils # (auto) 0.01 K/uL (0-0.5); Eosinophils % (auto) 0.2 %; Hematocrit (blood only) 31.1 % (37-47); Hemoglobin 9.9 g/dL (12.0-16.0); Immature Granulocytes # (auto) 0.02 K/uL (0.00-0.02); Immature Granulocytes % (auto) 0.4 %; Lymphocytes # (auto) 1.14 K/uL (1.2-3.4); Lymphocytes % (auto) 23.5 %; Mean Corpuscular Hemoglobin 29.2 pg (25-34); Mean Corpuscular Hgb Conc 31.8 g/dL (32-36); Mean Corpuscular Volume 91.7 fL (80-100); Mean Platelet Volume 11.1 fL (7.4-10.4); Monocytes # (auto) 0.51 K/uL (0.11-0.59); Monocytes % (auto) 10.5 %; Neutrophils # (auto) 3.17 K/uL (1.4-6.5); Neutrophils % (auto) 65.4 %; Platelet Count 186 K/uL (130-400); RDW Standard Deviation 46.9 fL (36.4-46.3); Red Blood Count 3.39 M/uL (4.2-5.4); White Blood Count 4.85 K/uL (4.8-10.8)
[2020-01-03 05:41] LABS: Albumin Globulin Ratio 0.7 (0.9-2); Albumin Level 2.3 gm/dl (3.4-5.0); BUN Creatinine Ratio 19.2 (10-20); Bilirubin,Total 0.2 mg/dl (0.2-1); Calcium 7.4 mg/dl (8.5-10.1); Creatinine Clr Calc Pharmacy 84.4 ml/min; Est GFR (African American) 90.8; Est GFR (Non-African American) 78.3; Globulin 3.4 gm/dl (2.5-4.0); Magnesium 2.2 mg/dl (1.8-2.4); Potassium 3.6 mmol/L (3.5-5.1); Total Protein 5.7 gm/dl (6.4-8.2)
[2020-01-03 05:43] LABS: Phosphorus 1.5 mg/dl (2.5-4.9)
[2020-01-03] MEDS ORDERED: POTASSIUM PHOS 3 MMOL/1 ML INFUSION IV STA (05:55)
[2020-01-03] MEDS ORDERED: POTASSIUM PHOSPHATE 24 MMOL in SODIUM CHLORIDE 0.9% 500 ML IV ONE (06:15)
[2020-01-03 06:28] LABS: Estimated Average Glucose 163 mg/dl; Hemoglobin A1C 7.3 % (4.5-5.6)
[2020-01-03] MEDS: dexAMETHasone 6 MG in SYRINGE 0 ML IV SCH (07:38)
[2020-01-03] MEDS ORDERED: INSULIN HUMAN NPH SC ONE (08:00)
--- NOTE | 2020-01-03 08:04 | XRay Report ---
KUB HISTORY: Status post placement of enteric tube eval OG location COMPARISON: Chest radiograph of same day, CTA chest 01/02/2020 FINDINGS: Nonobstructive bowel gas pattern. Endotracheal tube overlies the midline approximately 3.0 cm superior to the yoni. Bilateral pulmonary opacities. Enteric tube is noted with distal tip proje cted over the gastroesophageal junction. No renal calculi. No ureteral calculi. No pneumoperitoneum or pneumatosis. No fracture. IMPRESSION: Distal tip of enteric tube overlies the gastroesophageal junction. Advancement with follow-up imaging recommended. ACT 112: Negative or not required by law. The above report was generated using voice recognition software. It may contain grammatical, syntax o r spelling errors. Electronically signed by: Juan Staton M.D. 01/03/2020 8:02 AM
--- NOTE | 2020-01-03 08:23 | XRay Report ---
XR chest 1V portable HISTORY: 44 years-old Female resp failure acute respiratory failure COMPARISON: CTA of the chest and chest radiograph 01/02/2020. TECHNIQUE: Semisupine AP view of the chest FINDINGS: Endotracheal tube overlies the midline, 2.5 cm superior to the yoni. Enteric tube is noted with dis juan tip overlying the expected location of the gastroesophageal junction. No pneumothorax. There is m ildly improved aeration of the lungs. Right greater than left bilateral alveolar opacities are redemo nstrated. Bones appear grossly intact. IMPRESSION: 1. Endotracheal tube terminates 2.5 cm superior to the yoni. 2. Enteric tube distal tip overlies the gastroesophageal junction. 3. Mildly improved aeration of the lungs with persistent bilateral alveolar opacities suggestive of m ultifocal pneumonia. ACT 112: Negative or not required by law. The above report was generated using voice recognition software. It may contain grammatical, syntax o r spelling errors. Electronically signed by: Juan Staton M.D. 01/03/2020 8:22 AM
[2020-01-03] MEDS: PANTOprazole 40 MG in SYRINGE 0 ML IV SCH (10:09)
[2020-01-03] MEDS ORDERED: ZIPRASIDONE 20 MG/ML SDV IM PRN (10:19)
--- NOTE | 2020-01-03 10:41 | Pharmacy Report ---
Pharmacy Glycemic Short Note 2 - Date of Service January 03, 2020 - Glycemic Short BSG Results (Last 24 hours): 01/02/20 01/02/20 01/02/20 10:20 16:31 16:45 Glucose 203 H POC Glucose 343 H* 306 H* 01/02/20 01/03/20 01/03/20 19:55 00:45 04:19 Glucose POC Glucose 279 H 193 H 127 H 01/03/20 01/03/20 04:21 07:44 Glucose 131 H POC Glucose 178 H OUTPATIENT ANTIDIABETIC REGIMEN: * n/a * A1c ~7.3% ASSESSMENT: * Patient admitted with COVID pneumonia, intubated in ER. Presenting with altered mental status and combative behavior. Continues on sedation this morning with propofol/fentanyl/versed * Receiving Remdesivir and dexamethasone. Type 2 diabetes listed on medical list, however no agents at home listed on med rec. A1c of 7.3%. * Received total of 39 units of insulin yesterday, of which 18 units were NPH to help cover steroids. Lower dosing of NPH chosen as patient is NPO. Continue same basal this AM as steroids continuing * MD notes suggest plan is to try and wean mechanical ventilation in next 24 hrs/consideration of tube feedings if unsuccessful PLAN FOR INPATIENT GLYCEMIC CONTROL: * Basal insulin * NPH 18 units daily (0.2 units/kg) * Bolus insulin * NovoLog per scale ACHS or Q6hrs while NPO ---> Q4 hr checks * Goal Range: Low 110 mg/dL - High 140 mg/dL * Correction Factor: 20 mg/dL/unit * Nutritional / Prandial insulin per carb ratio of 1 unit per 9 grams CHO consumed PLAN FOR DISCHARGE: * tbd
--- NOTE | 2020-01-03 12:37 | Critical Care Progress Note ---
Date of Service January 03, 2020 Assessment & Plan (1) Acute respiratory failure with hypoxia: (2) Pneumonia due to COVID-19 virus: (3) COVID-19: Impression: 44-year-old female with Covid pneumonia intubated in the emergency room due to altered mental status and combative behavior. She is on minimal vent settings currently and appears to be oxygenating well. 24-hour events: Patient was admitted to the intensive care unit. She remained sedated overnight using fentanyl, propofol, and Versed. She is been hemodynamically stable. Progress was made in weaning her ventilator. PEEP was decreased down to 5 and FiO2 of 0.4 this morning. Cultures obtained and are currently pending. Recommendations: 1. Neurologic: Suspect metabolic encephalopathy possibly related to hypercarbic respiratory failure given the patient's history of severe sleep disordered breathing and potential hypoxemic encephalopathy given her Covid diagnosis. Imaging was negative. We will attempt to wean sedation and see if we can complete an SBT for the patient today. We will use Geodon to treat agitation. Precedex may be an option if the patient's hemodynamics will allow. 2. Cardiovascular: The patient remains hemodynamically stable. Continue to follow clinically. 3. Pulmonary: Hypoxemic respiratory failure secondary to COVID-19 pneumonia: Minimal vent settings currently. On antibiotics for pneumonia as well as dexamethasone and remdesivir for Covid. If mental status allows with weaning of sedation, will pursue SBT and possible extubation. Continue respiratory isolation protocol 4. GI: Continue PPI. The enteric tube tube appears to be in the distal esophagus or proximal stomach. Holding on tube feeding in hopes of potential liberation from mechanical ventilation today 5. Endocrine: Pharmacy consult for glycemic management. 6. Renal: No current issues. Electrolyte replacement per protocol. May benefit from gentle diuresis. 7. ID: Initiating remdesivir and dexamethasone as well as Rocephin and azithromycin. Day #2 8. DVT prophylaxis with Lovenox. PPI in place. Discussed with mother on phone and clinical update provided. She requested copy of the patient's Covid results for her work. This will be printed out and left at the frontend engineer of the hospital for the patient's mother to lemon picker. Questions were answered. She is in agreement with the plan as outlined. A total of 40 minutes in critical care time exclusive of procedures spent in evaluation management of this patient Admission and Anticipated Discharge Date Admission Date: January 02, 2020 Subjective Patient remains intubated and sedated. Physical Exam Constitutional: well developed and + mechanically ventilated Neck: trachea midline, no thyromegaly Respiratory: normal respiratory effort Cardiovascular: RRR, no murmur, no edema Gastrointestinal (Abdomen): normal bowel sounds, soft, nontender, no hepatosplenomegaly Musculoskeletal: Extremities: extremities normal to inspection Skin: no rashes, warm and dry Lymphatic: no cervical lymphadenopathy Results & Data Results & Data ([facility]) Vital Signs (Past 12 Hours) Vital Signs Temp Pulse Resp BP Pulse Ox 01/03/20 10:40 91 H 24 92 01/03/20 10:12 37.6 C H 93 H 92/71 L 92 01/03/20 09:31 37.5 C 88 100/67 95 01/03/20 09:23 37.5 C 96 H 76/57 L 93 01/03/20 08:31 37.5 C 94 H 117/79 94 01/03/20 08:00 90 01/03/20 07:53 37.5 C 94 H 101/67 97 01/03/20 07:38 90 24 95 01/03/20 06:00 37.4 C 92 H 97 01/03/20 05:00 37.6 C H 94 H 94 01/03/20 04:25 97 H 24 96 01/03/20 04:00 37.7 C H 99 H 98 01/03/20 03:31 37.7 C H 93 H 98/65 L 96 01/03/20 03:00 37.7 C H 91 H 95 01/03/20 02:31 37.7 C H 93 H 92/64 L 96 01/03/20 02:00 37.7 C H 94 H 96 01/03/20 01:31 37.8 C H 93 H 93/61 L 96 01/03/20 01:00 37.8 C H 99 H 96 01/03/20 00:31 37.8 C H 94 H 89/62 L 96 Laboratory Results 01/03/20 04:21 01/03/20 04:21 Tracheal aspirate showed gram-positive cocci gram-negative rods and rare epithelial cells with a few white blood cells. Culture showed normal light mis Blood gas today showed a pH 7.35 with a PCO2 of 40 and a PO2 of 71 Hemoglobin A1c 7.4 Phosphorus 1.5 Diagnostic Findings Chest x-ray from today was independently reviewed. Endotracheal tube appears to be in good position. The orogastric tube appears to be terminating in the distal esophagus/proximal stomach. There are persistent patchy parenchymal opacities although the left lung appears to be slightly clearing. Coding Level of Care Code Critical Care 1st 30-74 mins Diagnoses Acute respiratory failure with hypoxia J96.01 Pneumonia due to COVID-19 virus U07.1; J12.89 COVID-19 U07.1 Time Spent (min) 40
[2020-01-03] MEDS ORDERED: STAT IV Infusion **Titration per Protocol STA (15:34)
[2020-01-03] MEDS: cefTRIAXone SODIUM 2,000 MG in DEXTROSE 5% 50 ML IV SCH (16:03)
[2020-01-03] MEDS: DEXMEDETOMIDINE HCL 200 MCG in SODIUM CHLORIDE 0.9% 48 ML IV SCH ×2 (16:03→22:30)
[2020-01-03] MEDS: REMDESIVIR 100 MG in SODIUM CHLORIDE 0.9% 230 ML IV SCH (16:03)
[2020-01-03] MEDS: SODIUM CHLORIDE 0.9% 10ML FLUSH IV SCH (16:04)
--- NOTE | 2020-01-03 16:45 | Hospitalist Progress Note ---
Date of Service January 03, 2020 Assessment & Plan (1) Pneumonia due to COVID-19 virus: Son recently ill with COVID-19. Patient was seen in outpatient clinic on 12/31/19. SARS-CoV-2 PCR ordered- results pending as of 01/03/2020 Patient presented to ED with fever, dyspnea, hypoxia, delirium. Chest x-ray and CT demonstrated bilateral infiltrates consistent with COVID pneumonia. SARS-CoV-2 PCR in ED positive. Lymphocyte count 880. Procalcitonin 0.60. Intubated in ED most likely secondary to combativeness & admitted to ICU Consult Pulmonary Medicine / CCM-appreciate input and recommendation. Further COVID-specific management per Pulm / CCM. Has been on Remdesivir and dexamethasone Has been started on intravenous ceftriaxone and doxycycline for possible superimposed bacterial pneumonia Will get ID recommendation from Tammi for further management (2) Acute respiratory failure with hypoxia: O2 sats 72% on RA at home when EMS arrived. Intubated in ED. No apparent pulmonary emboli per CTA chest. Hypoxia probably secondary to COVID pneumonia. Continue supplemental O2 and ventilatory support as needed. Wean off and possible extubation this afternoon (3) Altered mental status: Very confused this morning. No acute findings on CT of head. Probably multifactorial toxic / metabolic encephalopathy due to hypoxia, COVID- 19 infection, etc. (4) SIMIN (obstructive sleep apnea): Sleep apnea on BiPAP at home. Resume HS BiPAP after extubation. (5) Chronic narcotic use: Chronic neck and back pain treated with oxycodone / acetaminophen. Monitor for signs / symptoms of narcotic withdrawal. (6) Abnormal urinalysis: UA shows 10-30 WBC's, negative leukocyte esterase, negative nitrites, many epithelial cells. UTI unlikely-urine culture is negative (7) GERD (gastroesophageal reflux disease): Continue PPI. (8) Diabetes mellitus type 2, controlled: Diet-controlled. Random glucose in ED 203. Received dexamethasone. Check Hgb A1c. Monitor blood sugars. Insulin coverage per protocol. (9) DVT prophylaxis: SQ enoxaparin. Ambulate when able. (10) Discharge planning issues: Discharge disposition to be determined. Family Medicine follow-up with Dr. Barone. Uriah Pineda given update by phone. He would appreciate updates from providers. His cell #: [phone] Admission and Anticipated Discharge Date Admission Date: January 02, 2020 Subjective 01/03/2020 The patient was seen and examined in ICU Remains on vent and sedated Review of Systems Review of Systems: Unobtainable due to endotracheal tube Physical Exam Physical Exam: Remains on vent and sedated Constitutional: well developed, well nourished and + ill appearing ENMT: external ear and nose normal, oropharynx normal Neck: trachea midline, no thyromegaly Respiratory: On mechanical vent Cardiovascular: Rate/Rhythm: regular rate and regular rhythm Heart Sounds: no murmur Gastrointestinal (Abdomen): Inspection/Auscultation: normal bowel sounds; abdomen not distended Percussion/Palpation: abdomen soft Neurologic: Sedated on mechanical ventilation Lymphatic: no cervical or axillary lymphadenopathy Results & Data Results & Data ([facility]) Vital Signs (Past 12 Hours) Vital Signs Temp Pulse Resp BP Pulse Ox 01/03/20 15:31 37.6 C H 93 H 111/65 78 L 01/03/20 15:25 89 16 90 01/03/20 15:00 37.4 C 119 H 87 L 01/03/20 14:31 37.2 C 90 119/82 94 01/03/20 13:31 37.3 C 87 110/76 91 01/03/20 12:31 37.5 C 87 107/74 93 01/03/20 11:31 37.5 C 87 104/72 92 01/03/20 10:40 91 H 24 92 01/03/20 10:31 37.6 C H 93 H 108/72 93 01/03/20 10:12 37.6 C H 93 H 92/71 L 92 01/03/20 09:31 37.5 C 88 100/67 95 01/03/20 09:23 37.5 C 96 H 76/57 L 93 01/03/20 08:31 37.5 C 94 H 117/79 94 01/03/20 08:00 90 01/03/20 07:53 37.5 C 94 H 101/67 97 01/03/20 07:38 90 24 95 01/03/20 06:00 37.4 C 92 H 97 01/03/20 05:00 37.6 C H 94 H 94 Laboratory Results Short CBC 01/03/20 Range/Units 04:21 WBC 4.85 (4.8-10.8) K/uL Hgb 9.9 L (12.0-16.0) g/dL Hct 31.1 L (37-47) % Plt Count 186 (130-400) K/uL BMP 01/03/20 04:21 Sodium 142 Potassium 3.6 Chloride 115 H Carbon Dioxide 27 BUN 17 Creatinine 0.90 D Glucose 131 H Calcium 7.4 L Liver Function 01/03/20 Range/Units 04:21 Total Bilirubin 0.2 (0.2-1) mg/dl AST 30 (15-37) U/L ALT 15 (12-78) U/L Alkaline Phosphatase 73 (45-117) U/L Albumin 2.3 L (3.4-5.0) gm/dl Medications Administered Current Inpatient Medications Enoxaparin Sodium (Enoxaparin Inj 40 Mg/0.4 Ml Syr) 40 mg SQ HS [facility] Stop: 02/01/20 20:59 Last Admin: 01/02/20 19:51 Dose: 40 mg Documented by: Fentanyl Citrate (Fentanyl Bolus From Bag) 50 mcg IV Q60M PRN PRN Reason: Pain or Agitation Stop: 01/16/20 15:14 Propofol (Diprivan) 1,000 mg in 100 mls @ 15.48 mls/hr IV .Q6H28M [facility]; Protocol Stop: 01/05/20 11:14 Last Admin: 01/03/20 10:08 Dose: 30 mcg/kg/min, 15.5 mls/hr Documented by: Midazolam HCl (Versed) 125 mg in 250 mls @ 4 mls/hr IV .[id number] [facility]; Protocol Stop: 02/01/20 15:14 Last Titration: 01/03/20 07:19 Dose: 2 mg/hr, 4 mls/hr Documented by: Fentanyl Citrate (Fentanyl Drip) 1,250 mcg in 250 mls @ 20 mls/hr IV .[id number] [facility]; Protocol Stop: 01/16/20 15:14 Last Admin: 01/03/20 14:59 Dose: 100 mcg/hr, 20 mls/hr Documented by: Pantoprazole Sodium 40 mg/ (Syringe) 10 mls @ 5 mls/min IV DAILY@1100 [facility] Stop: 02/02/20 10:59 Last Admin: 01/03/20 10:09 Dose: 5 mls/min Documented by: Dexamethasone 6 mg/ Syringe 1.5 mls @ 1 mls/min IV QD@08 [facility] Stop: 02/02/20 07:59 Last Admin: 01/03/20 07:38 Dose: 1 mls/min Documented by: Remdesivir 100 mg/ Sodium (Chloride) 250 mls @ 250 mls/hr IV Q24H [facility]; Protocol Stop: 01/06/20 17:44 Last Admin: 01/03/20 16:03 Dose: 250 mls/hr Documented by: Ceftriaxone Sodium 2,000 mg/ (Dextrose) 70 mls @ 100 mls/hr IV Q24H [facility]; Protocol Stop: 01/09/20 17:59 Last Admin: 01/03/20 16:03 Dose: 100 mls/hr Documented by: Azithromycin 250 mg/ Dextrose 252.5 mls @ 125 mls/hr IV Q24H [facility]; Protocol Stop: 01/09/20 17:59 Last Infusion: 01/02/20 20:21 Dose: Infused Documented by: Dexmedetomidine HCl 200 mcg/ (Sodium Chloride) 50 mls @ 4.595 mls/hr IV .[id number] [facility]; Protocol Stop: 01/07/20 15:59 Last Admin: 01/03/20 16:03 Dose: 0.2 mcg/kg/hr, 4.6 mls/hr Documented by: Insulin Aspart (Insulin Aspart 100 Units/Ml 3 Ml Pen) 0 units SC Q4 [facility] Stop: 02/01/20 19:59 Last Admin: 01/03/20 16:07 Dose: 5 units Documented by: Insulin Human NPH (Insulin Human Nph) 0 units SC DAILY@0800 [facility]; Protocol Stop: 02/03/20 07:59 Midazolam HCl (Midazolam Bolus From Bag) 2 mg IV Q60M PRN PRN Reason: Sedation Stop: 02/01/20 15:14 Miscellaneous (Icu Protocol For Hyperglycemia) 1 ea N/A PRN PRN; Protocol PRN Reason: Hyperglycemia Protocol Stop: 01/04/20 15:43 Miscellaneous Information (Pharmacy Glycemic Mgmt Consult) 1 ea N/A UD PRN PRN Reason: Consult Stop: 02/01/20 17:04 Propofol (Propofol Bolus From Bag) 20 mg IV Q5M PRN PRN Reason: Sedation Stop: 01/05/20 11:13 Sodium Chloride (Sodium Chloride 0.9% 10ml Flush) 30 ml IV Q24H [facility] Stop: 01/06/20 16:46 Last Admin: 01/03/20 16:04 Dose: 30 ml Documented by: Ziprasidone (Ziprasidone 20 Mg/Ml Sd) 10 mg IM BID PRN PRN Reason: Agitation Stop: 02/02/20 10:29 Last Admin: 01/03/20 12:16 Dose: 10 mg Documented by:
[2020-01-03] MEDS: AZITHROMYCIN 250 MG in DEXTROSE 5% 250 ML IV SCH (17:10)
[2020-01-03] MEDS: ENOXAPARIN INJ 40 MG/0.4 ML SYR SQ SCH (20:22)
[2020-01-04] MEDS: INSULIN ASPART 100 UNITS/ML 3 ML PEN SC SCH ×4 (00:15→11:47)
[2020-01-04] MEDS: DEXMEDETOMIDINE HCL 400 MCG in 0.9 % SODIUM CHLORIDE 96 ML IV SCH ×6 (03:45→21:18)
[2020-01-04 04:51] LABS: iSTAT Allen Test Pass; iSTAT Art Bld Gas pCO2 Correct 28 mmHg (35-46); iSTAT Art Bld Gas pH Corrected 7.455 (7.35-7.45); iSTAT Arterial Blood Gas HCO3 20 meg/L (19-24); iSTAT Arterial Blood Gas pCO2 27 mmHg (35-46); iSTAT Arterial Blood Gas pH 7.47 (7.35-7.45); iSTAT Arterial Blood Gas pO2 59 mmHg (80-95); iSTAT Arterial Blood Gas pO2 C 63; iSTAT Carbon Dioxide 20 mmol/L (24-31); iSTAT FiO2 40 %; iSTAT Hematocrit 32 % (37-47); iSTAT Hemoglobin 10.9 g/dl (12.0-16.0); iSTAT Potassium 3.6 mmol/L (3.3-5.0); iSTAT Site L Radial; iSTAT Sodium 145 mmol/L (135-144)
[2020-01-04 05:04] LABS: Eosinophils # (auto) 0.01 K/uL (0-0.5); Eosinophils % (auto) 0.1 %; Hematocrit (blood only) 34.1 % (37-47); Hemoglobin 11.1 g/dL (12.0-16.0); Immature Granulocytes # (auto) 0.04 K/uL (0.00-0.02); Immature Granulocytes % (auto) 0.5 %; Lymphocytes # (auto) 1.49 K/uL (1.2-3.4); Lymphocytes % (auto) 18.4 %; Mean Corpuscular Hemoglobin 29.2 pg (25-34); Mean Corpuscular Hgb Conc 32.6 g/dL (32-36); Mean Corpuscular Volume 89.7 fL (80-100); Mean Platelet Volume 10.7 fL (7.4-10.4); Monocytes # (auto) 0.88 K/uL (0.11-0.59); Monocytes % (auto) 10.9 %; Neutrophils # (auto) 5.67 K/uL (1.4-6.5); Neutrophils % (auto) 70.1 %; Platelet Count 205 K/uL (130-400); RDW Coefficient of Variation 14.2 % (11.5-14.5); RDW Standard Deviation 46.7 fL (36.4-46.3); White Blood Count 8.09 K/uL (4.8-10.8)
[2020-01-04 05:33] LABS: Albumin Level 2.4 gm/dl (3.4-5.0); BUN Creatinine Ratio 32.1 (10-20); Calcium 7.5 mg/dl (8.5-10.1); Creatinine Clr Calc Pharmacy 107.8 ml/min; Est GFR (African American) 120.9; Est GFR (Non-African American) 104.3; Magnesium 2.1 mg/dl (1.8-2.4); Potassium 3.5 mmol/L (3.5-5.1)
[2020-01-04 05:36] LABS: Albumin Globulin Ratio 0.6 (0.9-2); Bilirubin,Total 0.2 mg/dl (0.2-1); C Reactive Protein 4.9 mg/dl (0-0.29); Ferritin 169.1 ng/ml (8-388); Globulin 3.7 gm/dl (2.5-4.0); Phosphorus 2.1 mg/dl (2.5-4.9); Total Protein 6.1 gm/dl (6.4-8.2)
[2020-01-04] MEDS ORDERED: POTASSIUM PHOS 3 MMOL/1 ML INFUSION IV STA (05:43)
[2020-01-04] MEDS ORDERED: ACETAMINOPHEN 1,000 MG/100 ML VIAL IV PRN (05:43)
[2020-01-04] MEDS ORDERED: CALCIUM GLUCONATE 10% 1,000 MG in SODIUM CHLORIDE 0.9% 50 ML IV STA (05:43)
[2020-01-04] MEDS ORDERED: POTASSIUM PHOSPHATE 21 MMOL in SODIUM CHLORIDE 0.9% 500 ML IV ONE (06:00)
[2020-01-04] MEDS: propofoL 1,000 MG/100 ML VIAL IV SCH ×3 (06:07→20:15)
[2020-01-04] MEDS: fentaNYL DRIP 1,250 MCG/250 ML BAG IV SCH ×2 (06:08→17:57)
[2020-01-04] MEDS: dexAMETHasone 6 MG in SYRINGE 0 ML IV SCH (07:39)
--- NOTE | 2020-01-04 07:41 | XRay Report ---
SINGLE VIEW CHEST CLINICAL HISTORY: Follow-up airspace consolidation. FINDINGS: An AP, portable, upright chest radiograph is compared to study dated 01/03/2020. Correlatio n is made with chest CT dated 01/02/2020. The examination is degraded by portable technique and patie nt rotation. Endotracheal and enteric tubes are unchanged in position. The tip of the enteric tube te rminates at the level of the diaphragm. The cardiac silhouette appears enlarged. Dense multifocal air space consolidation is similar to yesterday. Small pleural effusions are suspected. No pneumothorax i s seen. The bony thorax is grossly intact. Fusion hardware is seen in the lower cervical spine. IMPRESSION: 1. Stable lines and tubes. Note that the tip of the enteric tube terminates at the level of the diaph ragm. 2. Multifocal airspace consolidation has not significantly changed from yesterday. 3. Suspect small pleural effusions. ACT 112: Negative or not required by law. Electronically signed by: Wyatt West M.D. 01/04/2020 7:39 AM
[2020-01-04] MEDS: INSULIN HUMAN NPH SC SCH (08:26)
--- NOTE | 2020-01-04 10:24 | Critical Care Progress Note ---
Date of Service January 04, 2020 Assessment & Plan (1) Acute respiratory failure with hypoxia: (2) Pneumonia due to COVID-19 virus: (3) COVID-19: Impression: 44-year-old female with Covid pneumonia intubated in the emergency room due to altered mental status and combative behavior. 24-hour events: Patient received 1 dose of IM Geodon for agitation which became problematic whenever sedation was lightened. She became very dyssynchronous with the ventilator and eventually was transitioned to pressure support ventilation which she has been comfortable on for about 24 hours. Her gas exchange is slightly worse with a decrease in her PaO2 and chest x-ray not surprisingly shows progressive pulmonary infiltrates Recommendations: 1. Neurologic: Suspect metabolic encephalopathy possibly related to hypercarbic respiratory failure given the patient's history of severe sleep disordered breathing and potential hypoxemic encephalopathy given her Covid diagnosis. Imaging was negative. She apparently had difficulty with prednisone in the past and is unclear if Decadron could be contributing to her encephalopathy and delirium. We will start p.o. Geodon. She is currently on propofol, fentanyl, Versed, and Precedex and with any manipulation becomes very agitated and lashing out at staff. Cannot proceed with the trial of extubation until her delirium and agitation is significantly improved 2. Cardiovascular: The patient remains hemodynamically stable. Continue to follow clinically. BNP is normal. The patient's IV access was discussed with nursing and is currently adequate with 3 peripheral IVs. Will consult IV team for PICC line 3. Pulmonary: Hypoxemic respiratory failure secondary to COVID-19 pneumonia: Currently maintained on pressure support ventilation 10/5 with an FiO2 of 0.4. On antibiotics for pneumonia as well as dexamethasone and remdesivir for Covid. Once the patient's mental status allows, we will proceed with SBT and potential extubation. Continue respiratory isolation protocol. The patient is certainly at risk for respiratory deterioration which may make it more difficult to wean her from the ventilator due to progression of her viral pneumonia over time. 4. GI: Continue PPI although can likely discontinue in the next 24 hours if the patient is tolerating tube feeding. Will advance enteric tube 10 cm, discussed with nursing. Dietary consult for initiation of tube feeding. 5. Endocrine: Glycemic control per protocol 6. Renal: No current issues. Electrolyte replacement per protocol. Mild hyponatremia. Free water will be started in conjunction with tube feeding. Follow sodium 7. ID: Continue remdesivir and dexamethasone. Day #3 Rocephin and azithromycin. Cultures are negative. Recommend completing 5-day course despite the fact the procalcitonin has been negative given the severity of her lung disease 8. DVT prophylaxis with Lovenox. PPI in place. Discussed with mother on phone and clinical update provided. Questions were answered to the best of my ability. She expressed understanding and is in agree ment with the plan as outlined. A total of 50 minutes in critical care time exclusive of procedures spent in evaluation management of this patient Admission and Anticipated Discharge Date Admission Date: January 02, 2020 Subjective Patient is intubated and sedated Review of Systems Review of Systems: Unobtainable due to endotracheal tube Physical Exam Constitutional: well developed and + mechanically ventilated Neck: trachea midline, no thyromegaly Respiratory: normal respiratory effort Cardiovascular: RRR, no murmur, no edema Gastrointestinal (Abdomen): normal bowel sounds, soft, nontender, no hepatosplenomegaly Musculoskeletal: Extremities: extremities normal to inspection Skin: no rashes, warm and dry Lymphatic: no cervical lymphadenopathy Results & Data Results & Data ([facility]) Vital Signs (Past 12 Hours) Vital Signs Temp Pulse Resp BP Pulse Ox 01/04/20 08:00 63 01/04/20 07:40 63 22 94 01/04/20 05:00 37.9 C H 71 93 01/04/20 04:56 76 24 92 01/04/20 04:26 37.8 C H 71 130/87 96 01/04/20 04:00 37.8 C H 69 97 01/04/20 03:26 37.9 C H 71 125/86 97 01/04/20 03:00 37.9 C H 70 97 01/04/20 02:26 38.0 C H 71 122/88 96 01/04/20 02:00 38.1 C H 73 93 01/04/20 01:26 37.9 C H 75 123/88 97 01/04/20 01:00 37.9 C H 72 96 01/04/20 00:29 84 19 90 01/04/20 00:26 37.9 C H 70 119/79 92 01/04/20 00:03 37.9 C H 68 129/82 89 L 01/04/20 00:00 37.9 C H 68 90 01/03/20 23:26 37.7 C H 67 129/82 95 01/03/20 23:00 37.6 C H 68 95 01/03/20 22:26 37.6 C H 72 121/80 95 In/out: +700 cc last 24 hours Laboratory Results 01/04/20 04:23 01/04/20 04:23 Respiratory cultures no growth to date. Gram stain with GPC's and gram-negative rods Calcium 7.5 Phosphorus 2.1 AB.47 Diagnostic Findings Chest x-ray from today was independently reviewed. The endotracheal tube is in good position. The orogastric tube terminates at the level of diaphragm. There has been progression of the patchy infiltrates more prominently on the right and the left lower lobe. Coding Level of Care Code Critical Care 1st 30-74 mins Diagnoses Acute respiratory failure with hypoxia J96.01 Pneumonia due to COVID-19 virus U07.1; J12.89 COVID-19 U07.1 Time Spent (min) 50 Comment 50 minutes critical care time
[2020-01-04] MEDS ORDERED: CALCIUM GLUCONATE 10% 2,000 MG in SODIUM CHLORIDE 0.9% 50 ML IV ONE (10:45)
[2020-01-04] MEDS: PANTOprazole 40 MG in SYRINGE 0 ML IV SCH (11:32)
--- NOTE | 2020-01-04 14:23 | Pharmacy Report ---
Pharmacy Glycemic Short Note 2 - Date of Service January 04, 2020 - Glycemic Short BSG Results (Last 24 hours): 01/03/20 01/03/20 01/04/20 16:07 20:17 00:13 Glucose POC Glucose 209 H 174 H 124 H 01/04/20 01/04/20 01/04/20 03:48 04:23 08:10 Glucose 107 H POC Glucose 92 158 H 01/04/20 11:36 Glucose POC Glucose 228 H OUTPATIENT ANTIDIABETIC REGIMEN: * n/a * A1c ~7.3% ASSESSMENT: 01/03 * Patient received total of 32 units of insulin yesterday, of which 18 were NPH to cover steroids * Fasting BSG 158 mg/dL - continue same NPH * Plan to start tube feedings today / adjusted to regular insulin Q4 hr checks - notified nurse to make sure they follow protocol text and cover carbs of tube feeds with insulin 01/02 * Patient admitted with COVID pneumonia, intubated in ER. Presenting with altered mental status and combative behavior. Continues on sedation this morning with propofol/fentanyl/versed * Receiving Remdesivir and dexamethasone. Type 2 diabetes listed on medical list, however no agents at home listed on med rec. A1c of 7.3%. * Received total of 39 units of insulin yesterday, of which 18 units were NPH to help cover steroids. Lower dosing of NPH chosen as patient is NPO. Continue same basal this AM as steroids continuing * MD notes suggest plan is to try and wean mechanical ventilation in next 24 hrs/consideration of tube feedings if unsuccessful PLAN FOR INPATIENT GLYCEMIC CONTROL: * Basal insulin * NPH 18 units daily (0.2 units/kg) * Bolus insulin * NovoLog per scale ACHS or Q6hrs while NPO ---> Q4 hr checks * Goal Range: Low 110 mg/dL - High 140 mg/dL * Correction Factor: 15 mg/dL/unit * Nutritional / Prandial insulin per carb ratio of 1 unit per 6 grams CHO consumed PLAN FOR DISCHARGE: * tbd
[2020-01-04 14:56] LABS: Codeine Urine NEGATIVE ng/mL (<50); Hydrocodone Urine NEGATIVE ng/mL (<50); Hydromor Urine NEGATIVE ng/mL (<50); Morphine Urine 9970 ng/mL (<50); Norhydrocodone Conf Ur NEGATIVE ng/mL (<50); Noroxycodone Urine 1160 ng/mL (<50); Oxycodone Urine 318 ng/mL (<50); Oxymorph Urine 436 ng/mL (<50)
--- NOTE | 2020-01-04 14:58 | Hospitalist Progress Note ---
Date of Service January 04, 2020 Assessment & Plan (1) Pneumonia due to COVID-19 virus: Son recently ill with COVID-19. Patient was seen in outpatient clinic on 12/31/19. SARS-CoV-2 PCR ordered- results pending as of 01/03/2020 Patient presented to ED with fever, dyspnea, hypoxia, delirium. Chest x-ray and CT demonstrated bilateral infiltrates consistent with COVID pneumonia. SARS-CoV-2 PCR in ED positive. Lymphocyte count 880. Procalcitonin 0.60. Intubated in ED most likely secondary to combativeness & admitted to ICU Consult Pulmonary Medicine / CCM-appreciate input and recommendation. Further COVID-specific management per Pulm / CCM. Has been on Remdesivir and dexamethasone Has been started on intravenous ceftriaxone and doxycycline for possible superimposed bacterial pneumonia Will get ID recommendation from Tammi for further management Remains intubated and requiring patient and Precedex infusion (2) Acute respiratory failure with hypoxia: O2 sats 72% on RA at home when EMS arrived. Intubated in ED. No apparent pulmonary emboli per CTA chest. Hypoxia probably secondary to COVID pneumonia. Continue supplemental O2 and ventilatory support as needed. Wean off was not possible yesterday and remains on mechanical ventilator (3) Altered mental status: Very confused this morning. No acute findings on CT of head. Probably multifactorial toxic / metabolic encephalopathy due to hypoxia, COVID- 19 infection, etc. (4) SIMIN (obstructive sleep apnea): Sleep apnea on BiPAP at home. Resume HS BiPAP after extubation. (5) Chronic narcotic use: Chronic neck and back pain treated with oxycodone / acetaminophen. Monitor for signs / symptoms of narcotic withdrawal. Having withdrawal from narcotics and or alcohol and requiring Precedex infusion and occasional Geodon through the NG tube (6) Abnormal urinalysis: UA shows 10-30 WBC's, negative leukocyte esterase, negative nitrites, many epithelial cells. UTI unlikely-urine culture is negative (7) GERD (gastroesophageal reflux disease): Continue PPI. (8) Diabetes mellitus type 2, controlled: Diet-controlled. Random glucose in ED 203. Received dexamethasone. Check Hgb A1c. Monitor blood sugars. Insulin coverage per protocol. (9) DVT prophylaxis: SQ enoxaparin. Ambulate when able. (10) Discharge planning issues: Discharge disposition to be determined. Family Medicine follow-up with Dr. Barone. Uriah Pineda given update by phone. He would appreciate updates from providers. His cell #: [phone]-updated by the ICU provider Admission and Anticipated Discharge Date Admission Date: January 02, 2020 Subjective 01/03/2020 The patient was seen and examined in ICU Remains on vent and sedated 01/04/2020 The patient was seen and examined in ICU She remains intubated and the weaning was not possible because of agitation and combativeness Remains sedated on vent and requiring Precedex infusion and also as needed Rosaura Review of Systems Review of Systems: Unobtainable due to reduced consciousness Physical Exam Physical Exam: Remains on vent and sedated Constitutional: well developed, well nourished and + ill appearing ENMT: external ear and nose normal, oropharynx normal Neck: trachea midline, no thyromegaly Respiratory: no respiratory distress Auscultation: + diminished lung sounds Cardiovascular: Rate/Rhythm: regular rate and regular rhythm Heart Sounds: no murmur Extremities: no edema Gastrointestinal (Abdomen): Inspection/Auscultation: normal bowel sounds; abdomen not distended Percussion/Palpation: abdomen soft Lymphatic: no cervical or axillary lymphadenopathy Results & Data Results & Data ([facility]) Vital Signs (Past 12 Hours) Vital Signs Temp Pulse Resp BP Pulse Ox 01/04/20 11:20 65 24 93 01/04/20 08:00 63 01/04/20 07:40 63 22 94 01/04/20 05:00 37.9 C H 71 93 01/04/20 04:56 76 24 92 01/04/20 04:26 37.8 C H 71 130/87 96 01/04/20 04:00 37.8 C H 69 97 01/04/20 03:26 37.9 C H 71 125/86 97 01/04/20 03:00 37.9 C H 70 97 Laboratory Results Short CBC 01/04/20 Range/Units 04:23 WBC 8.09 (4.8-10.8) K/uL Hgb 11.1 L (12.0-16.0) g/dL Hct 34.1 L (37-47) % Plt Count 205 (130-400) K/uL BMP 01/04/20 04:23 Sodium 144 Potassium 3.5 Chloride 116 H Carbon Dioxide 24 BUN 23 H Creatinine 0.71 Glucose 107 H Calcium 7.5 L Liver Function 01/04/20 Range/Units 04:23 Total Bilirubin 0.2 (0.2-1) mg/dl AST 30 (15-37) U/L ALT 14 (12-78) U/L Alkaline Phosphatase 73 (45-117) U/L Albumin 2.4 L (3.4-5.0) gm/dl Medications Administered Current Inpatient Medications Enoxaparin Sodium (Enoxaparin Inj 40 Mg/0.4 Ml Syr) 40 mg SQ HS [facility] Stop: 02/01/20 20:59 Last Admin: 01/03/20 20:22 Dose: 40 mg Documented by: Fentanyl Citrate (Fentanyl Bolus From Bag) 50 mcg IV Q60M PRN PRN Reason: Pain or Agitation Stop: 01/16/20 15:14 Last Admin: 01/04/20 09:57 Dose: 50 mcg Documented by: Propofol (Diprivan) 1,000 mg in 100 mls @ 12.9 mls/hr IV .Q7H46M [facility]; Protocol Stop: 01/05/20 11:14 Last Admin: 01/04/20 13:37 Dose: 20 mcg/kg/min, 10.3 mls/hr Documented by: Midazolam HCl (Versed) 125 mg in 250 mls @ 0 mls/hr IV .Q0M [facility]; Protocol Stop: 02/01/20 15:14 Last Titration: 01/03/20 18:42 Dose: 0 mg/hr, 0 mls/hr Documented by: Fentanyl Citrate (Fentanyl Drip) 1,250 mcg in 250 mls @ 10 mls/hr IV .Q25H [facility]; Protocol Stop: 01/16/20 15:14 Last Titration: 01/04/20 07:09 Dose: 50 mcg/hr, 10 mls/hr Documented by: Pantoprazole Sodium 40 mg/ (Syringe) 10 mls @ 5 mls/min IV DAILY@1100 [facility] Stop: 02/02/20 10:59 Last Admin: 01/04/20 11:32 Dose: 5 mls/min Documented by: Dexamethasone 6 mg/ Syringe 1.5 mls @ 1 mls/min IV QD@08 [facility] Stop: 02/02/20 07:59 Last Admin: 01/04/20 07:39 Dose: 1 mls/min Documented by: Remdesivir 100 mg/ Sodium (Chloride) 250 mls @ 250 mls/hr IV Q24H [facility]; Protocol Stop: 01/06/20 17:44 Last Infusion: 01/03/20 17:05 Dose: Infused Documented by: Ceftriaxone Sodium 2,000 mg/ (Dextrose) 70 mls @ 100 mls/hr IV Q24H [facility]; Protocol Stop: 01/09/20 17:59 Last Infusion: 01/03/20 17:05 Dose: Infused Documented by: Azithromycin 250 mg/ Dextrose 252.5 mls @ 125 mls/hr IV Q24H [facility]; Protocol Stop: 01/09/20 17:59 Last Infusion: 01/03/20 19:12 Dose: Infused Documented by: Dexmedetomidine HCl 400 mcg/ (Sodium Chloride) 100 mls @ 34.463 mls/hr IV .Q2H55M [facility]; Protocol Stop: 01/08/20 02:59 Last Admin: 01/04/20 14:38 Dose: 1.5 mcg/kg/hr, 34.5 mls/hr Documented by: Insulin Human NPH (Insulin Human Nph) 0 units SC DAILY@0800 [facility]; Protocol Stop: 02/03/20 07:59 Last Admin: 01/04/20 08:26 Dose: 18 units Documented by: Insulin Human Regular (Insulin Human Regular) 0 units SC Q4 [facility]; Protocol Stop: 02/03/20 15:59 Midazolam HCl (Midazolam Bolus From Bag) 2 mg IV Q60M PRN PRN Reason: Sedation Stop: 02/01/20 15:14 Miscellaneous (I[facility] Protocol For Hyperglycemia) 1 ea N/A PRN PRN; Protocol PRN Reason: Hyperglycemia Protocol Stop: 01/04/20 15:43 Miscellaneous Information (Pharmacy Glycemic Mgmt Consult) 1 ea N/A UD PRN PRN Reason: Consult Stop: 02/01/20 17:04 Nutritional Formula (Peptamen Intense Vhp 1.0 Antonio 1,000 Ml Bag) 1,000 ml OG UD [facility]; Protocol Stop: 02/03/20 11:14 Propofol (Propofol Bolus From Bag) 20 mg IV Q5M PRN PRN Reason: Sedation Stop: 01/05/20 11:13 Sodium Chloride (Sodium Chloride 0.9% 10ml Flush) 30 ml IV Q24H [facility] Stop: 01/06/20 16:46 Last Admin: 01/03/20 16:04 Dose: 30 ml Documented by: Ziprasidone (Ziprasidone 20 Mg/Ml Sdv) 10 mg IM BID PRN PRN Reason: Agitation Stop: 02/02/20 10:29 Last Admin: 01/03/20 12:16 Dose: 10 mg Documented by: Ziprasidone (Ziprasidone Hcl 20 Mg Cap) 20 mg PO BID [facility] Stop: 02/03/20 10:14 Last Admin: 01/04/20 10:41 Dose: 20 mg Documented by:
[2020-01-04] MEDS: PEPTAMEN INTENSE VHP 1.0 CAL 1,000 ML BAG OG SCH (16:00)
[2020-01-04] MEDS: cefTRIAXone SODIUM 2,000 MG in DEXTROSE 5% 50 ML IV SCH (16:41)
[2020-01-04] MEDS: REMDESIVIR 100 MG in SODIUM CHLORIDE 0.9% 230 ML IV SCH (16:42)
[2020-01-04] MEDS: AZITHROMYCIN 250 MG in DEXTROSE 5% 250 ML IV SCH (16:42)
[2020-01-04] MEDS: INSULIN HUMAN REGULAR SC SCH ×3 (17:02→23:12)
[2020-01-04] MEDS: SODIUM CHLORIDE 0.9% 10ML FLUSH IV SCH (17:03)
[2020-01-04] MEDS: ENOXAPARIN INJ 40 MG/0.4 ML SYR SQ SCH (20:14)
[2020-01-05] MEDS: DEXMEDETOMIDINE HCL 400 MCG in 0.9 % SODIUM CHLORIDE 96 ML IV SCH ×14 (00:13→17:56)
[2020-01-05] MEDS ORDERED: ACETAMINOPHEN 1,000 MG/100 ML VIAL IV STA (03:12)
[2020-01-05 04:03] LABS: iSTAT Art Bld Gas pCO2 Correct 26 mmHg (35-46); iSTAT Art Bld Gas pH Corrected 7.455 (7.35-7.45); iSTAT Arterial Blood Gas HCO3 18 meg/L (19-24); iSTAT Arterial Blood Gas pCO2 25 mmHg (35-46); iSTAT Arterial Blood Gas pH 7.48 (7.35-7.45); iSTAT Arterial Blood Gas pO2 61 mmHg (80-95); iSTAT Arterial Blood Gas pO2 C 67; iSTAT Carbon Dioxide 19 mmol/L (24-31); iSTAT FiO2 35 %; iSTAT Hematocrit 29 % (37-47); iSTAT Hemoglobin 9.9 g/dl (12.0-16.0); iSTAT Potassium 3.2 mmol/L (3.3-5.0); iSTAT Site R Radial; iSTAT Sodium 141 mmol/L (135-144)
[2020-01-05] MEDS: INSULIN HUMAN REGULAR SC SCH ×3 (04:10→11:43)
[2020-01-05] MEDS: propofoL 1,000 MG/100 ML VIAL IV SCH ×8 (04:14→22:30)
[2020-01-05 06:35] LABS: Hematocrit (blood only) 33.9 % (37-47); Mean Corpuscular Hemoglobin 29.3 pg (25-34); Mean Corpuscular Hgb Conc 32.4 g/dL (32-36); Mean Corpuscular Volume 90.2 fL (80-100); Mean Platelet Volume 11.5 fL (7.4-10.4); Platelet Count 167 K/uL (130-400); RDW Coefficient of Variation 14.1 % (11.5-14.5); RDW Standard Deviation 46.6 fL (36.4-46.3); Red Blood Count 3.76 M/uL (4.2-5.4)
[2020-01-05 06:53] LABS: Eosinophils # (auto) 0.01 K/uL (0-0.5); Eosinophils % (auto) 0.1 %; Immature Granulocytes # (auto) 0.08 K/uL (0.00-0.02); Immature Granulocytes % (auto) 0.8 %; Lymphocytes # (auto) 1.45 K/uL (1.2-3.4); Lymphocytes % (auto) 15.1 %; Monocytes # (auto) 1.19 K/uL (0.11-0.59); Monocytes % (auto) 12.4 %; Neutrophils # (auto) 6.87 K/uL (1.4-6.5); Neutrophils % (auto) 71.6 %
[2020-01-05 07:04] LABS: Albumin Globulin Ratio 0.6 (0.9-2); Albumin Level 2.1 gm/dl (3.4-5.0); BUN Creatinine Ratio 35.8 (10-20); Bilirubin,Total 0.3 mg/dl (0.2-1); Calcium 7.4 mg/dl (8.5-10.1); Creatinine Clr Calc Pharmacy 137.3 ml/min; Est GFR (African American) 132.4; Est GFR (Non-African American) 114.2; Globulin 3.4 gm/dl (2.5-4.0); Magnesium 1.8 mg/dl (1.8-2.4); Phosphorus 2.7 mg/dl (2.5-4.9); Potassium 3.4 mmol/L (3.5-5.1); Total Protein 5.5 gm/dl (6.4-8.2)
[2020-01-05] MEDS: dexAMETHasone 6 MG in SYRINGE 0 ML IV SCH (07:32)
[2020-01-05] MEDS: INSULIN HUMAN NPH SC SCH (08:09)
--- NOTE | 2020-01-05 08:33 | XRay Report ---
SINGLE VIEW CHEST CLINICAL HISTORY: Respiratory failure. Covid. FINDINGS: An AP, portable, upright chest radiograph is compared to study dated 01/04/2020. Correlatio n is made with chest CT dated 01/02/2020. The examination is degraded by portable technique and patie nt rotation. Endotracheal and enteric tubes are unchanged in position. The tip of the enteric tube te rminates at the level of the diaphragm. The cardiac silhouette appears enlarged. Dense multifocal air space consolidation is similar to yesterday. Small pleural effusions are suspected. No pneumothorax i s seen. The bony thorax is grossly intact. IMPRESSION: 1. Stable lines and tubes. 2. Multifocal airspace consolidation has not significantly changed from yesterday. 3. Suspect small pleural effusions. ACT 112: Negative or not required by law. Electronically signed by: Wyatt West M.D. 01/05/2020 8:32 AM
--- NOTE | 2020-01-05 08:44 | Critical Care Progress Note ---
Date of Service January 05, 2020 Assessment & Plan (1) Acute respiratory failure with hypoxia: I do not think the patient is ready for extubation today. She has a very high respiratory rate and is requiring large amounts of sedation to maintain her saturations above 92%. With minimal movement she does desaturate to the 80s per the nurse. Her chest x-ray still demonstrates profound multifocal pneumonia. Replacing electrolytes as needed. I am going to give her 40 mg of IV Lasix that she is approximately 4 L positive since hospital admission. I discontinued her Rocephin as her procalcitonin level is negative yesterday. We will continue the azithromycin. Continue Decadron for 10 days and continue remdesivir for the time being. We are trending LFTs. I am going to check a CRP, ESR and troponin level today. Continue tube feeds to goal rate. Continue insulin per pharmacy protocol. I discontinued her Versed. We are weaning down her Precedex. We can go up on her fentanyl for analgesia if needed. Continue propofol. Continue 20 mg twice daily of Geodon for the time being. I will check an EKG today to look at her QTC. We will check a triglyceride level tomorrow. Continue GI prophylaxis with Protonix. 40 mg Lovenox daily for DVT prophylaxis. I spoke with an updated the patient's mother, Mrs. Aguirre. Patient was also discussed on multidisciplinary rounds. I have personally spent 39 minutes of critical care time in the direct management of this patient. This is a life/limb threatening event. This includes time spent evaluating patient, direct bedside care, chart review, placing orders, interpretation of diagnostic studies, discussion with consultants, patient, and family members, as well as other required patient management activities. This time is exclusive of all separately billable procedures, and teaching time and separate from and in addition to any other critical care service time. Thank you for allowing us to participate in the care of this patient. (2) Pneumonia due to COVID-19 virus: (3) Acute encephalopathy: (4) Obesity (BMI 30-39.9): (5) Diabetes mellitus type 2, controlled: (6) Agitation: Admission and Anticipated Discharge Date Admission Date: January 02, 2020 Subjective She is unresponsive to commands. She is intubated and sedated on propofol, fentanyl, Precedex. She does gag when I placed the suction catheter in her ET tube. Bedside nurse is available. No acute events overnight. She is currently on 30% FiO2 and a PEEP of 5. She is on spontaneous breathing mode at a pressure of 10/5. Respiratory rate around 30. Spontaneous tidal volumes around 360. Review of Systems Review of Systems: Unobtainable due to endotracheal tube and Unobtainable due to reduced consciousness Physical Exam Constitutional: well developed and + mechanically ventilated Neck: trachea midline, no thyromegaly Respiratory: normal respiratory effort Cardiovascular: RRR, no murmur, no edema Gastrointestinal (Abdomen): normal bowel sounds, soft, nontender, no hepatosplenomegaly Musculoskeletal: Extremities: extremities normal to inspection Skin: no rashes, warm and dry Lymphatic: no cervical lymphadenopathy Results & Data Results & Data ([facility]) Vital Signs (Past 12 Hours) Vital Signs Temp Pulse Resp BP Pulse Ox 01/05/20 07:36 61 27 H 93 01/05/20 05:00 100.9 F H 53 L 94 01/05/20 04:27 101.1 F H 50 L 150/85 H 92 01/05/20 04:00 101.1 F H 50 L 91 01/05/20 03:27 101.1 F H 54 L 158/84 H 95 01/05/20 03:04 56 L 34 H 92 01/05/20 03:00 101.1 F H 54 L 92 01/05/20 02:27 101.1 F H 49 L 142/85 H 94 01/05/20 02:00 101.1 F H 52 L 96 01/05/20 01:26 101.3 F H 48 L 146/86 H 94 01/05/20 01:00 101.3 F H 49 L 95 01/05/20 00:27 101.1 F H 51 L 145/89 H 96 01/05/20 00:00 101.1 F H 46 L 94 01/04/20 23:32 55 L 28 H 90 01/04/20 23:26 101.3 F H 50 L 151/93 H 93 01/04/20 23:00 101.5 F H 48 L 94 01/04/20 22:26 101.5 F H 52 L 154/89 H 97 01/04/20 22:00 101.5 F H 49 L 94 01/04/20 21:26 101.3 F H 47 L 146/87 H 97 01/04/20 21:00 101.3 F H 45 L 97 I reviewed the vital signs, labs and imaging Coding Level of Care Code Critical Care 1st 30-74 mins Diagnoses Acute respiratory failure with hypoxia J96.01 Pneumonia due to COVID-19 virus U07.1; J12.89 Acute encephalopathy G93.40 Obesity (BMI 30-39.9) E66.9 Diabetes mellitus type 2, controlled E11.9 Agitation R45.1 Time Spent (min) 39
[2020-01-05] MEDS ORDERED: FUROSEMIDE 40 MG in SYRINGE 0 ML IV ONE (08:45)
[2020-01-05 09:14] LABS: C Reactive Protein 6.86 mg/dl (0-0.29); Troponin I 0.024 ng/ml (0-0.045)
[2020-01-05] MEDS ORDERED: POTASSIUM CHLORIDE 20 MEQ/15 ML UDC PO STA ×2 (09:21→19:27)
[2020-01-05] MEDS: fentaNYL DRIP 1,250 MCG/250 ML BAG IV SCH ×3 (09:40→22:29)
[2020-01-05] MEDS ORDERED: oxyCODONE HCL SOLN 5 MG/5 ML UDC PO PRN (10:00)
[2020-01-05] MEDS: PANTOprazole 40 MG in SYRINGE 0 ML IV SCH (10:10)
--- NOTE | 2020-01-05 11:11 | Electrocardiogram Report ---
Test Reason : Blood Pressure : / mmHG Vent. Rate : 061 BPM Atrial Rate : 061 BPM P-R Int : 116 ms QRS Dur : 082 ms QT Int : 448 ms P-R-T Axes : 056 020 030 degrees QTc Int : 450 ms Normal sinus rhythm Normal ECG When compared with ECG of 02-JAN-2020 10:22, Vent. rate has decreased BY 57 BPM Confirmed by Andreas Gilliland ([id number]) on 01/05/2020 11:10:37 AM Referred By: REFERRED SELF Confirmed By:Orlando Gilliland
[2020-01-05] MEDS: DOCUSATE SODIUM/SENNA 50/8.6MG TAB PO SCH (11:41)
--- NOTE | 2020-01-05 12:47 | Pharmacy Report ---
Pharmacy Glycemic Short Note 2 - Date of Service January 05, 2020 - Glycemic Short BSG Results (Last 24 hours): 01/04/20 01/04/20 01/04/20 16:46 20:01 23:07 Glucose POC Glucose 231 H 251 H 187 H 01/05/20 01/05/20 01/05/20 03:10 04:31 06:19 Glucose Cancelled 152 H POC Glucose 123 H 01/05/20 01/05/20 07:53 11:37 Glucose POC Glucose 141 H 213 H OUTPATIENT ANTIDIABETIC REGIMEN: * n/a * A1c ~7.3% ASSESSMENT: 01/04 * Patient received 50 units of insulin yesterday, 22 units of NPH * TF continue @ 30 ml/hr (half of goal rate)- BSGs initially elevated and then trend down overnight. Elevated again at lunch * Patient currently on regular insulin, will switch to novolog as checks are every 4 hours. Regular parameters were adjusted yesterday down to 12/. Will tighten carb ratio with dinner. * Day #05/15 dexamethasone, continues on propofol, precedex, fentanyl- will titrate up NPH for steroid coverage 01/03 * Patient received total of 32 units of insulin yesterday, of which 18 were NPH to cover steroids * Fasting BSG 158 mg/dL - continue same NPH * Plan to start tube feedings today / adjusted to regular insulin Q4 hr checks - notified nurse to make sure they follow protocol text and cover carbs of tube feeds with insulin 01/02 * Patient admitted with COVID pneumonia, intubated in ER. Presenting with altered mental status and combative behavior. Continues on sedation this morning with propofol/fentanyl/versed * Receiving Remdesivir and dexamethasone. Type 2 diabetes listed on medical list, however no agents at home listed on med rec. A1c of 7.3%. * Received total of 39 units of insulin yesterday, of which 18 units were NPH to help cover steroids. Lower dosing of NPH chosen as patient is NPO. Continue same basal this AM as steroids continuing * MD notes suggest plan is to try and wean mechanical ventilation in next 24 hrs/consideration of tube feedings if unsuccessful PLAN FOR INPATIENT GLYCEMIC CONTROL: * Basal insulin * NPH 22/27 units daily (0.2-0.3 units/kg) * Bolus insulin * NovoLog per scale ACHS or Q6hrs while NPO ---> Q4 hr checks * Goal Range: Low 110 mg/dL - High 140 mg/dL * Correction Factor: 12 mg/dL/unit * Nutritional / Prandial insulin per carb ratio of 1 unit per 5 grams CHO consumed PLAN FOR DISCHARGE: * tbd
[2020-01-05] MEDS: GABAPENTIN 250 MG/5 ML 470 ML BTL PO SCH ×2 (13:35→20:11)
[2020-01-05] MEDS ORDERED: GABAPENTIN 250 MG/5 ML 470 ML BTL PO SCH (14:00)
--- NOTE | 2020-01-05 16:49 | Hospitalist Progress Note ---
Date of Service January 05, 2020 Assessment & Plan (1) Pneumonia due to COVID-19 virus: Son recently ill with COVID-19. Patient was seen in outpatient clinic on 12/31/19. SARS-CoV-2 PCR ordered- results pending as of 01/03/2020 Patient presented to ED with fever, dyspnea, hypoxia, delirium. Chest x-ray and CT demonstrated bilateral infiltrates consistent with COVID pneumonia. SARS-CoV-2 PCR in ED positive. Lymphocyte count 880. Procalcitonin 0.60. Intubated in ED most likely secondary to combativeness & admitted to ICU Consult Pulmonary Medicine / CCM-appreciate input and recommendation. Further COVID-specific management per Pulm / CCM. Has been on Remdesivir and dexamethasone Has been started on intravenous ceftriaxone and doxycycline for possible superimposed bacterial pneumonia Will get ID recommendation from Tammi for further management Remains intubated and requiring patient and Precedex infusion Not yet ready to be extubated Acute metabolic encephalopathy [id number], pneumonia, respiratory failure, narcotic use Requiring Precedex and Geodon to control agitation (2) Acute respiratory failure with hypoxia: O2 sats 72% on RA at home when EMS arrived. Intubated in ED. No apparent pulmonary emboli per CTA chest. Hypoxia probably secondary to COVID pneumonia. Continue supplemental O2 and ventilatory support as needed. Wean off was not possible yesterday and remains on mechanical ventilator As above (3) Altered mental status: Very confused this morning. No acute findings on CT of head. Probably multifactorial toxic / metabolic encephalopathy due to hypoxia, COVID- 19 infection, etc. (4) SIMIN (obstructive sleep apnea): Sleep apnea on BiPAP at home. Resume HS BiPAP after extubation. (5) Chronic narcotic use: Chronic neck and back pain treated with oxycodone / acetaminophen. Monitor for signs / symptoms of narcotic withdrawal. Having withdrawal from narcotics and or alcohol and requiring Precedex infusion and occasional Geodon through the NG tube (6) Abnormal urinalysis: UA shows 10-30 WBC's, negative leukocyte esterase, negative nitrites, many epithelial cells. UTI unlikely-urine culture is negative (7) GERD (gastroesophageal reflux disease): Continue PPI. (8) Diabetes mellitus type 2, controlled: Diet-controlled. Random glucose in ED 203. Received dexamethasone. Check Hgb A1c. Monitor blood sugars. Insulin coverage per protocol. (9) DVT prophylaxis: SQ enoxaparin. Ambulate when able. (10) Discharge planning issues: Discharge disposition to be determined. Family Medicine follow-up with Dr. Barone. Son Edwin given update by phone. He would appreciate updates from providers. His cell #: [phone]-updated by the ICU provider Admission and Anticipated Discharge Date Admission Date: January 02, 2020 Subjective 01/03/2020 The patient was seen and examined in ICU Remains on vent and sedated 01/04/2020 The patient was seen and examined in ICU She remains intubated and the weaning was not possible because of agitation and combativeness Remains sedated on vent and requiring Precedex infusion and also as needed Geodon 01/05/2020 The patient was seen and examined in ICU She remains intubated and sedated Not yet ready to be extubated Review of Systems Review of Systems: Unobtainable due to endotracheal tube Physical Exam Physical Exam: Remains on vent and sedated Constitutional: well developed, well nourished and + ill appearing ENMT: external ear and nose normal, oropharynx normal Neck: trachea midline, no thyromegaly Respiratory: no respiratory distress Auscultation: + diminished lung sounds Cardiovascular: Rate/Rhythm: regular rate and regular rhythm Heart Sounds: no murmur Extremities: no edema Gastrointestinal (Abdomen): Inspection/Auscultation: normal bowel sounds; abdomen not distended Percussion/Palpation: abdomen soft Lymphatic: no cervical or axillary lymphadenopathy Results & Data Results & Data ([facility]) Vital Signs (Past 12 Hours) Vital Signs Temp Pulse Resp BP Pulse Ox 01/05/20 15:30 64 24 91 01/05/20 14:26 37.5 C 65 106/78 93 01/05/20 13:26 37.7 C H 65 119/73 93 01/05/20 12:26 37.7 C H 64 115/74 94 01/05/20 11:40 59 L 91 01/05/20 11:30 64 26 H 90 01/05/20 11:27 38.1 C H 83 114/83 92 01/05/20 10:27 38.1 C H 63 128/70 90 01/05/20 09:35 55 L 28 H 93 01/05/20 09:27 38.1 C H 59 L 132/80 91 01/05/20 08:27 38.2 C H 57 L 150/90 H 94 01/05/20 08:00 56 L 01/05/20 07:36 61 27 H 93 01/05/20 07:27 38.2 C H 58 L 138/86 93 01/05/20 05:00 38.3 C H 53 L 94 Laboratory Results Short CBC 01/05/20 01/05/20 Range/Units 04:31 06:19 WBC 9.60 (4.8-10.8) K/uL Hgb 11.0 L (12.0-16.0) g/dL Hct 33.9 L (37-47) % Plt Count 167 (130-400) K/uL BMP 01/05/20 01/05/20 04:31 06:19 Sodium Cancelled 142 Potassium Cancelled 3.4 L Chloride Cancelled 113 H Carbon Dioxide Cancelled 22 BUN Cancelled 20 H Creatinine Cancelled 0.56 L Glucose Cancelled 152 H Calcium Cancelled 7.4 L Cardiac Enzymes 01/05/20 Range/Units 06:19 Troponin I 0.024 (0-0.045) ng/ml Liver Function 01/05/20 01/05/20 Range/Units 04:31 06:19 Total Bilirubin Cancelled 0.3 AST Cancelled 39 H ALT Cancelled 21 Alkaline Phosphatase Cancelled 83 Albumin Cancelled 2.1 L Medications Administered Current Inpatient Medications Enoxaparin Sodium (Enoxaparin Inj 40 Mg/0.4 Ml Syr) 40 mg SQ BID [facility] Stop: 02/01/20 20:59 Fentanyl Citrate (Fentanyl Bolus From Bag) 50 mcg IV Q60M PRN PRN Reason: Pain or Agitation Stop: 01/16/20 15:14 Last Admin: 01/05/20 09:07 Dose: 50 mcg Documented by: Gabapentin (Gabapentin 250 Mg/5 Ml 470 Ml Btl) 900 mg PO TID [facility] Stop: 02/04/20 13:59 Last Admin: 01/05/20 13:35 Dose: 900 mg Documented by: Fentanyl Citrate (Fentanyl Drip) 1,250 mcg in 250 mls @ 15 mls/hr IV .[id number] [facility]; Protocol Stop: 01/16/20 15:14 Last Admin: 01/05/20 14:47 Dose: 75 mcg/hr, 15 mls/hr Documented by: Pantoprazole Sodium 40 mg/ (Syringe) 10 mls @ 5 mls/min IV DAILY@1100 [facility] Stop: 02/02/20 10:59 Last Admin: 01/05/20 10:10 Dose: 5 mls/min Documented by: Dexamethasone 6 mg/ Syringe 1.5 mls @ 1 mls/min IV QD@08 [facility] Stop: 02/02/20 07:59 Last Admin: 01/05/20 07:32 Dose: 1 mls/min Documented by: Remdesivir 100 mg/ Sodium (Chloride) 250 mls @ 250 mls/hr IV Q24H [facility]; Protocol Stop: 01/06/20 17:44 Last Infusion: 01/04/20 18:37 Dose: Infused Documented by: Azithromycin 250 mg/ Dextrose 252.5 mls @ 125 mls/hr IV Q24H [facility]; Protocol Stop: 01/09/20 17:59 Last Infusion: 01/04/20 18:44 Dose: Infused Documented by: Dexmedetomidine HCl 400 mcg/ (Sodium Chloride) 100 mls @ 22.975 mls/hr IV .Q4H22M [facility]; Protocol Stop: 01/08/20 02:59 Last Admin: 01/05/20 11:21 Dose: 1 mcg/kg/hr, 23 mls/hr Documented by: Insulin Aspart (Insulin Aspart 100 Units/Ml 3 Ml Pen) 0 units SC Q4 [facility]; Protocol Stop: 02/04/20 15:59 Insulin Human NPH (Insulin Human Nph) 0 units SC DAILY@0800 [facility]; Protocol Stop: 02/03/20 07:59 Last Admin: 01/05/20 08:09 Dose: 22 units Documented by: Miscellaneous (Icu Electrolyte Replacement Protocol) 1 ea N/A BID@06,18 [facility]; Protocol Stop: 01/12/20 17:59 Miscellaneous Information (Pharmacy Glycemic Mgmt Consult) 1 ea N/A UD PRN PRN Reason: Consult Stop: 02/01/20 17:04 Nutritional Formula (Peptamen Intense Vhp 1.0 Antonio 1,000 Ml Bag) 1,000 ml OG UD [facility]; Protocol Stop: 02/03/20 11:14 Last Admin: 01/04/20 16:00 Dose: 1,000 ml Documented by: Oxycodone HCl (Oxycodone Hcl Soln 5 Mg/5 Ml Udc) 5 mg PO TID PRN PRN Reason: Pain Stop: 01/19/20 09:59 Polyethylene Glycol (Polyethylene (Miralax) 17 Gm Pack) 17 gm PO DAILY PRN PRN Reason: Constipation Stop: 02/04/20 10:15 Senna/Docusate Sodium (Docusate Sodium/Senna 50/8.6mg Tab) 1 tab PO QAM [facility] Stop: 02/04/20 10:14 Last Admin: 01/05/20 11:41 Dose: 1 tab Documented by: Sodium Chloride (Sodium Chloride 0.9% 10ml Flush) 30 ml IV Q24H [facility] Stop: 01/06/20 16:46 Last Admin: 01/04/20 17:03 Dose: 30 ml Documented by: Venlafaxine HCl (Venlafaxine Hcl 37.5 Mg Tab) 37.5 mg PO BID [facility] Stop: 02/04/20 20:59 Ziprasidone (Ziprasidone 20 Mg/Ml Sdv) 10 mg IM BID PRN PRN Reason: Agitation Stop: 02/02/20 10:29 Last Admin: 01/03/20 12:16 Dose: 10 mg Documented by:
[2020-01-05] MEDS: PEPTAMEN INTENSE VHP 1.0 CAL 1,000 ML BAG OG SCH (16:58)
[2020-01-05] MEDS: INSULIN ASPART 100 UNITS/ML 3 ML PEN SC SCH ×2 (17:09→20:00)
[2020-01-05] MEDS: REMDESIVIR 100 MG in SODIUM CHLORIDE 0.9% 230 ML IV SCH (17:34)
[2020-01-05] MEDS: SODIUM CHLORIDE 0.9% 10ML FLUSH IV SCH (17:35)
[2020-01-05] MEDS: AZITHROMYCIN 250 MG in DEXTROSE 5% 250 ML IV SCH (17:35)
[2020-01-05] MEDS ORDERED: STAT IV Infusion **Titration per Protocol STA (17:47)
[2020-01-05] MEDS: ICU ELECTROLYTE REPLACEMENT PROTOCOL SCH (18:24)
[2020-01-05 19:10] LABS: Calcium 7.8 mg/dl (8.5-10.1); Creatinine Clr Calc Pharmacy 116.5 ml/min; Est GFR (African American) 125.4; Est GFR (Non-African American) 108.2; Magnesium 1.9 mg/dl (1.8-2.4); Phosphorus 2.9 mg/dl (2.5-4.9); Potassium 3.4 mmol/L (3.5-5.1)
[2020-01-05] MEDS ORDERED: MAGNESIUM SULFATE / WTR 40 GM/1,000 ML BAG IV SCH (19:45)
[2020-01-05] MEDS ORDERED: MAGNESIUM SULFATE / D5W 1 GM/100 ML BAG IV ONE (20:00)
[2020-01-05] MEDS: VENLAFAXINE HCL 37.5 MG TAB PO SCH (20:07)
[2020-01-05] MEDS: ENOXAPARIN INJ 40 MG/0.4 ML SYR SQ SCH (20:07)
[2020-01-06] MEDS: INSULIN ASPART 100 UNITS/ML 3 ML PEN SC SCH ×6 (00:02→20:51)
[2020-01-06] MEDS: propofoL 1,000 MG/100 ML VIAL IV SCH ×9 (02:08→22:35)
[2020-01-06 03:49] LABS: iSTAT Allen Test Pass; iSTAT Arterial Blood Gas HCO3 23 meg/L (19-24); iSTAT Arterial Blood Gas pCO2 39 mmHg (35-46); iSTAT Arterial Blood Gas pH 7.38 (7.35-7.45); iSTAT Arterial Blood Gas pO2 65 mmHg (80-95); iSTAT Carbon Dioxide 24 mmol/L (24-31); iSTAT Site R Radial
[2020-01-06 05:33] LABS: Basophils # (auto) 0.01 K/uL (0-0.2); Basophils % (auto) 0.1 %; Eosinophils # (auto) 0.01 K/uL (0-0.5); Eosinophils % (auto) 0.1 %; Hematocrit (blood only) 34.2 % (37-47); Immature Granulocytes # (auto) 0.26 K/uL (0.00-0.02); Immature Granulocytes % (auto) 2.2 %; Lymphocytes # (auto) 1.28 K/uL (1.2-3.4); Lymphocytes % (auto) 10.8 %; Mean Corpuscular Hemoglobin 28.9 pg (25-34); Mean Corpuscular Hgb Conc 32.2 g/dL (32-36); Mean Corpuscular Volume 89.8 fL (80-100); Mean Platelet Volume 11.2 fL (7.4-10.4); Monocytes # (auto) 1.43 K/uL (0.11-0.59); Monocytes % (auto) 12.1 %; Neutrophils # (auto) 8.84 K/uL (1.4-6.5); Neutrophils % (auto) 74.7 %; Platelet Count 218 K/uL (130-400); Red Blood Count 3.81 M/uL (4.2-5.4); White Blood Count 11.83 K/uL (4.8-10.8)
[2020-01-06 06:00] LABS: Albumin Level 2.1 gm/dl (3.4-5.0); BUN Creatinine Ratio 40.8 (10-20); Calcium 7.8 mg/dl (8.5-10.1); Creatinine Clr Calc Pharmacy 142.4 ml/min; Est GFR (Non-African American) 115.6; Potassium 3.7 mmol/L (3.5-5.1)
[2020-01-06 06:03] LABS: Albumin Globulin Ratio 0.6 (0.9-2); Bilirubin,Total 0.3 mg/dl (0.2-1); Globulin 3.7 gm/dl (2.5-4.0); Phosphorus 2.4 mg/dl (2.5-4.9); Total Protein 5.8 gm/dl (6.4-8.2)
[2020-01-06] MEDS: dexAMETHasone 6 MG in SYRINGE 0 ML IV SCH (07:36)
[2020-01-06] MEDS: MAGNESIUM OXIDE 400 MG TAB NG SCH ×2 (07:44→11:22)
[2020-01-06] MEDS: POT PHOSPHATE MONOBASIC W/ SOD TAB NG SCH ×3 (07:45→15:30)
[2020-01-06] MEDS: VENLAFAXINE HCL 37.5 MG TAB PO SCH ×2 (07:45→20:26)
[2020-01-06] MEDS: POTASSIUM CHLORIDE 20 MEQ/15 ML UDC NG SCH ×2 (07:45→11:22)
[2020-01-06] MEDS: ENOXAPARIN INJ 40 MG/0.4 ML SYR SQ SCH ×2 (07:46→20:27)
[2020-01-06] MEDS: DOCUSATE SODIUM/SENNA 50/8.6MG TAB PO SCH (07:55)
[2020-01-06] MEDS: GABAPENTIN 250 MG/5 ML 470 ML BTL PO SCH ×3 (07:55→20:27)
--- NOTE | 2020-01-06 08:29 | XRay Report ---
SINGLE VIEW CHEST CLINICAL HISTORY: Respiratory failure. Covid. FINDINGS: An AP, portable, upright chest radiograph is compared to study dated 01/05/2020. Correlatio n is made with chest CT dated 01/02/2020. The examination is degraded by portable technique and patie nt rotation. Endotracheal and enteric tubes are unchanged in position. The tip of the enteric tube te rminates at the level of the diaphragm. The cardiac silhouette appears enlarged. Dense multifocal air space consolidation is similar to yesterday. Small pleural effusions are suspected. No pneumothorax i s seen. The bony thorax is grossly intact. Fusion hardware is noted in the lower cervical spine. IMPRESSION: 1. Stable lines and tubes. 2. Multifocal airspace consolidation has not significantly changed from yesterday. 3. Suspect small pleural effusions. ACT 112: Negative or not required by law. Electronically signed by: Wyatt West M.D. 01/06/2020 8:28 AM
[2020-01-06] MEDS: INSULIN HUMAN NPH SC SCH (08:41)
[2020-01-06] MEDS: PROPOFOL BOLUS FROM BAG IV PRN ×2 (08:43→19:00)
[2020-01-06] MEDS: fentaNYL DRIP 1,250 MCG/250 ML BAG IV SCH ×2 (08:43→18:28)
--- NOTE | 2020-01-06 09:34 | Critical Care Progress Note ---
Date of Service January 06, 2020 Assessment & Plan (1) Acute respiratory failure with hypoxia: We have not performed a spontaneous breathing trial today due to the patient's severe encephalopathy and significant respiratory secretions. Continue remdesivir and Decadron. Continue azithromycin for atypical pneumonia. We restarted her venlafaxine, gabapentin at a reduced dose and as needed oxycodone yesterday. I have also started her on high-dose thiamine and folic acid. I am requesting assistance from neurology to evaluate for possible Covid encephalitis versus withdrawal from narcotics, gabapentin possible alcohol. I will order for an EEG. We may need to perform an MRI of the brain and a lumbar puncture if there is no significant improvement in mental status in the next 24 hours. She may need a trial of benzodiazepine. Continue to wean propofol and fentanyl as able. Continue tube feeds. Continue prophylactic dose of Lovenox. We are replacing electrolytes per the ICU protocol. Continue GI prophylaxis with pantoprazole 40 mg daily. IV access remains an issue. We will ask IV team to insert another peripherally ultrasound guided IV. I spoke with an updated the patient's mother, Mrs. Aguirre. Patient was also discussed on multidisciplinary rounds. I have personally spent 46 minutes of critical care time in the direct management of this patient. This is a life/limb threatening event. This includes time spent evaluating patient, direct bedside care, chart review, placing orders, interpretation of diagnostic studies, discussion with consultants, patient, and family members, as well as other required patient management activities. This time is exclusive of all separately billable procedures, and teaching time and separate from and in addition to any other critical care service time. Thank you for allowing us to participate in the care of this patient. (2) Pneumonia due to COVID-19 virus: (3) Acute encephalopathy: (4) Obesity (BMI 30-39.9): (5) Diabetes mellitus type 2, controlled: (6) Agitation: Admission and Anticipated Discharge Date Admission Date: January 02, 2020 Subjective The patient is currently on 50 mcg of propofol and 150 mcg of fentanyl. She is currently on an FiO2 of 40% and PEEP of 5 on PRVC. She is not following commands. She is opening her eyes and moving her limbs spontaneously which is improved from yesterday. She is having electrolytes replenished at this time. No significant concerns from nursing overnight. She does have an ongoing sinus tachycardia. She has been weaned off of Precedex. Nursing is reporting thick secretions being aspirated from the inline suction catheter. Review of Systems Review of Systems: Unobtainable due to endotracheal tube and Unobtainable due to reduced consciousness Physical Exam Constitutional: well developed, well nourished and + ill appearing Intubated Eyes: PERRL, conjunctivae normal, anicteric sclerae ENMT: external ear and nose normal, oropharynx normal Neck: trachea midline, no thyromegaly Respiratory: normal respiratory effort and + tachypneic; no respiratory distress Auscultation: + diminished lung sounds Cardiovascular: Rate/Rhythm: regular rate and regular rhythm Heart Sounds: no murmur Extremities: no edema Gastrointestinal (Abdomen): Inspection/Auscultation: normal bowel sounds; abdomen not distended Percussion/Palpation: abdomen soft Musculoskeletal: no cyanosis or clubbing, extremities motor strength 5/5 Skin: no rashes, warm and dry Neurologic: Unable to fully assess. Not following commands. Moving limbs spontaneously. Psychiatric: A+Ox3, euthymic affect Lymphatic: no cervical or axillary lymphadenopathy Results & Data Results & Data ([facility]) Vital Signs (Past 12 Hours) Vital Signs Temp Pulse Resp BP Pulse Ox 01/06/20 08:27 100.6 F H 122 H 114/75 96 01/06/20 07:31 115 H 22 97 01/06/20 07:27 100.4 F H 119 H 94/63 L 97 01/06/20 04:00 100.0 F H 103 H 94 01/06/20 03:30 98 H 24 95 01/06/20 03:00 99.5 F 98 H 96 01/06/20 02:27 99.5 F 85 106/63 91 01/06/20 02:00 99.5 F 83 94 01/06/20 01:27 99.5 F 84 118/72 94 01/06/20 01:00 99.5 F 85 93 01/06/20 00:27 99.5 F 72 109/72 93 01/06/20 00:00 99.7 F H 89 22 90 01/05/20 23:27 99.7 F H 65 108/67 90 01/05/20 23:00 99.7 F H 66 91 01/05/20 22:27 99.9 F H 60 106/73 91 01/05/20 22:00 99.9 F H 60 92 01/05/20 21:27 99.9 F H 60 110/71 92 I reviewed the vital signs, labs and imaging. Coding Level of Care Code Critical Care 1st 30-74 mins Diagnoses Acute respiratory failure with hypoxia J96.01 Pneumonia due to COVID-19 virus U07.1; J12.89 Acute encephalopathy G93.40 Obesity (BMI 30-39.9) E66.9 Diabetes mellitus type 2, controlled E11.9 Agitation R45.1 Time Spent (min) 46
[2020-01-06] MEDS ORDERED: oxyCODONE HCL SOLN 5 MG/5 ML UDC PO PRN (10:15)
[2020-01-06] MEDS: FOLIC ACID 1 MG TAB PO SCH (10:21)
[2020-01-06] MEDS: PANTOprazole 40 MG in SYRINGE 0 ML IV SCH (10:47)
[2020-01-06 11:03] LABS: Appearance Urine Clear (Clear); Bacteria Urine Automated Negative (Negative); Bilirubin Urine Negative (Negative); Blood Urine Negative (Negative); Color Urine Yellow; Epithelial Cell Urine Auto 20-30 /lpf (0-5); Glucose Urine UA Trace (Negative); Ketones Urine Negative (Negative); Leukocyte Esterase Urine Trace (Negative); Nitrite Urine Negative (Negative); Protein Urine Trace (Negative); RBC Urine Automated 0-4 /hpf (0-4); Specific Gravity Urine 1.021 (1.000-1.030); Urobilinogen Urine Negative (Negative); pH Urine 6.5 (4.5-7.5)
--- NOTE | 2020-01-06 12:36 | Pharmacy Report ---
Pharmacy Glycemic Short Note 2 - Date of Service January 06, 2020 - Glycemic Short BSG Results (Last 24 hours): 01/05/20 01/05/20 01/05/20 17:05 18:46 19:42 Glucose 229 H POC Glucose 242 H 203 H 01/05/20 01/06/20 01/06/20 23:58 04:10 05:05 Glucose 178 H POC Glucose 220 H 176 H 01/06/20 01/06/20 08:26 11:27 Glucose POC Glucose 139 H 192 H OUTPATIENT ANTIDIABETIC REGIMEN: * n/a * A1c ~7.3% ASSESSMENT: 01/05 * Patient received 53 units of insulin yesterday * TF are now at goal. BSGs improving. Patient still hyperglycemic during the day yesterday and trend down overnight. * Tightened CF/CR to 11/08. Improvement in lunch BSG today. * Patient remains intubated with encephalopathy, continuing dexamethasone 6 mg. 01/04 * Patient received 50 units of insulin yesterday, 22 units of NPH * TF continue @ 30 ml/hr (half of goal rate)- BSGs initially elevated and then trend down overnight. Elevated again at lunch * Patient currently on regular insulin, will switch to novolog as checks are every 4 hours. Regular parameters were adjusted yesterday down to 01/10. Will tighten carb ratio with dinner. * Day #05/15 dexamethasone, continues on propofol, precedex, fentanyl- will titrate up NPH for steroid coverage 01/03 * Patient received total of 32 units of insulin yesterday, of which 18 were NPH to cover steroids * Fasting BSG 158 mg/dL - continue same NPH * Plan to start tube feedings today / adjusted to regular insulin Q4 hr checks - notified nurse to make sure they follow protocol text and cover carbs of tube feeds with insulin 01/02 * Patient admitted with COVID pneumonia, intubated in ER. Presenting with altered mental status and combative behavior. Continues on sedation this morning with propofol/fentanyl/versed * Receiving Remdesivir and dexamethasone. Type 2 diabetes listed on medical list, however no agents at home listed on med rec. A1c of 7.3%. * Received total of 39 units of insulin yesterday, of which 18 units were NPH to help cover steroids. Lower dosing of NPH chosen as patient is NPO. Continue same basal this AM as steroids continuing * MD notes suggest plan is to try and wean mechanical ventilation in next 24 hrs/consideration of tube feedings if unsuccessful PLAN FOR INPATIENT GLYCEMIC CONTROL: * Basal insulin * NPH 22/27 units daily (0.2-0.3 units/kg) * Bolus insulin * NovoLog per scale ACHS or Q6hrs while NPO ---> Q4 hr checks * Goal Range: Low 110 mg/dL - High 140 mg/dL * Correction Factor: 10 mg/dL/unit * Nutritional / Prandial insulin per carb ratio of 1 unit per 4 grams CHO consumed PLAN FOR DISCHARGE: * tbd
--- NOTE | 2020-01-06 13:19 | Electroencephalogram ---
EEG Procedure Note Date of Service January 06, 2020 Start / End Times Start Time: 1050 End Time: [address] Espinal History COVID-19 respiratory failure on ventilator with confusion and agitation question Covid encephalitis, hypoxic ischemic encephalopathy, substance [place] Home Medication List Medication Instructions Recorded Confirmed Type albuterol sulfate 2 puff INHALATION QID PRN 01/02/20 01/02/20 History buspirone 7.5 - 15 mg PO BID PRN 01/02/20 01/02/20 History cholecalciferol (vitamin D3) 10 mcg PO QAM 01/02/20 01/02/20 History [Vitamin D3] cyclobenzaprine 10 mg PO TID PRN 01/02/20 01/02/20 History diclofenac sodium [Voltaren] 4 g TOPICAL QID 01/02/20 01/02/20 History gabapentin 1,200 mg PO TID 01/02/20 01/02/20 History indomethacin 50 mg PO TIDM PRN 01/02/20 01/02/20 History morphine 15 mg PO BID 01/02/20 01/02/20 History mv,Ca,min-iron ycsq-HI-lyssdi 1 tab PO DAILY 01/02/20 01/02/20 History [Hair,Skin and Nails] omeprazole 20 mg PO DAILYBB 01/02/20 01/02/20 History oxycodone-acetaminophen 1 tab PO Q8H PRN 01/02/20 01/02/20 History polyethylene glycol 3350 [Miralax] 17 g PO DAILY PRN 01/02/20 01/02/20 History pyridoxine (vitamin B6) [Vitamin 250 mg PO QAM 01/02/20 01/02/20 History B-6] sennosides [senna] 34.4 mg PO QAM PRN 01/02/20 01/02/20 History topiramate 25 mg PO BID 01/02/20 01/02/20 History venlafaxine 75 mg PO DAILY 01/02/20 01/02/20 History Inpatient Medication List Enoxaparin Sodium (Enoxaparin Inj 40 Mg/0.4 Ml Syr) 40 mg SQ BID [facility] Stop: 02/01/20 20:59 Last Admin: 01/06/20 07:46 Dose: 40 mg Documented by: [id number] Admin: 01/05/20 20:07 Dose: 40 mg Documented by: [id number] Fentanyl Citrate (Fentanyl Bolus From Bag) 50 mcg IV Q60M PRN PRN Reason: Pain or Agitation Stop: 01/16/20 15:14 Last Admin: 01/06/20 08:43 Dose: 50 mcg Documented by: [id number] Admin: 01/05/20 09:07 Dose: 50 mcg Documented by: [id number] Admin: 01/04/20 09:57 Dose: 50 mcg Documented by: [id number] Folic Acid (Folic Acid 1 Mg Tab) 1 mg PO QAM [facility] Stop: 02/05/20 09:29 Last Admin: 01/06/20 10:21 Dose: 1 mg Documented by: [id number] Gabapentin (Gabapentin 250 Mg/5 Ml 470 Ml Btl) 900 mg PO TID [facility] Stop: 02/04/20 13:59 Last Admin: 01/06/20 07:55 Dose: 900 mg Documented by: [id number] Admin: 01/05/20 20:11 Dose: 900 mg Documented by: [id number] Admin: 01/05/20 13:35 Dose: 900 mg Documented by: [id number] Fentanyl Citrate (Fentanyl Drip) 1,250 mcg in 250 mls @ 25 mls/hr IV .Q10H [facility]; Protocol Stop: 01/16/20 15:14 Last Titration: 01/06/20 10:00 Dose: 125 mcg/hr, 25 mls/hr Documented by: [id number] Cosigned by: [id number] Admin: 01/06/20 08:43 Dose: 150 mcg/hr, 30 mls/hr Documented by: [id number] Cosigned by: [id number] Titration: 01/06/20 06:49 Dose: 150 mcg/hr, 30 mls/hr Documented by: [id number] Cosigned by: [id number] Admin: 01/05/20 22:29 Dose: 150 mcg/hr, 30 mls/hr Documented by: [id number] Cosigned by: [id number] Titration: 01/05/20 22:29 Dose: 150 mcg/hr, 30 mls/hr Documented by: [id number] Cosigned by: [id number] Titration: 01/05/20 20:14 Dose: 150 mcg/hr, 30 mls/hr Documented by: [id number] Cosigned by: [id number] Titration: 01/05/20 19:05 Dose: 75 mcg/hr, 15 mls/hr Documented by: [id number] Cosigned by: [id number] Titration: 01/05/20 14:47 Dose: 75 mcg/hr, 15 mls/hr Documented by: [id number] Cosigned by: [id number] Admin: 01/05/20 14:47 Dose: 75 mcg/hr, 15 mls/hr Documented by: [id number] Cosigned by: [id number] Admin: 01/05/20 09:40 Dose: Not Given Documented by: [id number] Titration: 01/05/20 09:07 Dose: 75 mcg/hr, 15 mls/hr Documented by: [id number] Cosigned by: [id number] Titration: 01/05/20 07:06 Dose: 50 mcg/hr, 10 mls/hr Documented by: [id number] Cosigned by: [id number] Admin: 01/04/20 17:57 Dose: 50 mcg/hr, 10 mls/hr Documented by: [id number] Cosigned by: [id number] Titration: 01/04/20 17:57 Dose: 50 mcg/hr, 10 mls/hr Documented by: [id number] Cosigned by: [id number] Titration: 01/04/20 07:09 Dose: 50 mcg/hr, 10 mls/hr Documented by: [id number] Cosigned by: [id number] Titration: 01/04/20 07:08 Dose: 50 mcg/hr, 10 mls/hr Documented by: [id number] Cosigned by: [id number] Admin: 01/04/20 06:08 Dose: 50 mcg/hr, 10 mls/hr Documented by: [id number] Cosigned by: [id number] Titration: 01/04/20 06:08 Dose: 50 mcg/hr, 10 mls/hr Documented by: [id number] Cosigned by: [id number] Titration: 01/03/20 18:57 Dose: 50 mcg/hr, 10 mls/hr Documented by: [id number] Cosigned by: [id number] Titration: 01/03/20 17:15 Dose: 50 mcg/hr, 10 mls/hr Documented by: [id number] Cosigned by: [id number] Admin: 01/03/20 14:59 Dose: 100 mcg/hr, 20 mls/hr Documented by: [id number] Cosigned by: [id number] Titration: 01/03/20 14:59 Dose: 100 mcg/hr, 20 mls/hr Documented by: [id number] Cosigned by: [id number] Titration: 01/03/20 07:19 Dose: 100 mcg/hr, 20 mls/hr Documented by: [id number] Cosigned by: [id number] Admin: 01/03/20 04:10 Dose: 100 mcg/hr, 20 mls/hr Documented by: [id number] Cosigned by: [id number] Titration: 01/03/20 04:10 Dose: 100 mcg/hr, 20 mls/hr Documented by: [id number] Cosigned by: [id number] Titration: 01/02/20 19:04 Dose: 100 mcg/hr, 20 mls/hr Documented by: [id number] Cosigned by: [id number] Titration: 01/02/20 17:32 Dose: 100 mcg/hr, 20 mls/hr Documented by: [id number] Cosigned by: [id number] Titration: 01/02/20 15:47 Dose: 75 mcg/hr, 15 mls/hr Documented by: [id number] Cosigned by: [id number] Admin: 01/02/20 15:30 Dose: 25 mcg/hr, 5 mls/hr Documented by: [id number] Cosigned by: [id number] Pantoprazole Sodium 40 mg/ (Syringe) 10 mls @ 5 mls/min IV DAILY@1100 [facility] Stop: 02/02/20 10:59 Last Admin: 01/06/20 10:47 Dose: 5 mls/min Documented by: [id number] Admin: 01/05/20 10:10 Dose: 5 mls/min Documented by: [id number] Admin: 01/04/20 11:32 Dose: 5 mls/min Documented by: [id number] Admin: 01/03/20 10:09 Dose: 5 mls/min Documented by: [id number] Dexamethasone 6 mg/ Syringe 1.5 mls @ 1 mls/min IV QD@08 [facility] Stop: 02/02/20 07:59 Last Admin: 01/06/20 07:36 Dose: 1 mls/min Documented by: [id number] Admin: 01/05/20 07:32 Dose: 1 mls/min Documented by: [id number] Admin: 01/04/20 07:39 Dose: 1 mls/min Documented by: [id number] Admin: 01/03/20 07:38 Dose: 1 mls/min Documented by: [id number] Remdesivir 100 mg/ Sodium (Chloride) 250 mls @ 250 mls/hr IV Q24H [facility]; Protocol Stop: 01/06/20 17:44 Last Infusion: 01/05/20 18:34 Dose: 250 mls/hr Documented by: [id number] Admin: 01/05/20 17:34 Dose: 250 mls/hr Documented by: [id number] Infusion: 01/04/20 18:37 Dose: 0 mls/hr Documented by: [id number] Admin: 01/04/20 16:42 Dose: 250 mls/hr Documented by: [id number] Infusion: 01/03/20 17:05 Dose: 0 mls/hr Documented by: [id number] Admin: 01/03/20 16:03 Dose: 250 mls/hr Documented by: [id number] Azithromycin 250 mg/ Dextrose 252.5 mls @ 125 mls/hr IV Q24H [facility]; Protocol Stop: 01/09/20 17:59 Last Infusion: 01/05/20 19:37 Dose: 125 mls/hr Documented by: [id number] Admin: 01/05/20 17:35 Dose: 125 mls/hr Documented by: [id number] Infusion: 01/04/20 18:44 Dose: 125 mls/hr Documented by: [id number] Admin: 01/04/20 16:42 Dose: 125 mls/hr Documented by: [id number] Infusion: 01/03/20 19:12 Dose: 125 mls/hr Documented by: [id number] Admin: 01/03/20 17:10 Dose: 125 mls/hr Documented by: [id number] Infusion: 01/02/20 20:21 Dose: 125 mls/hr Documented by: [id number] Admin: 01/02/20 18:19 Dose: 125 mls/hr Documented by: [id number] Propofol (Diprivan) 1,000 mg in 100 mls @ 27.81 mls/hr IV .Q3H36M [facility]; Protocol Stop: 01/08/20 17:59 Last Admin: 01/06/20 10:20 Dose: 50 mcg/kg/min, 27.8 mls/hr Documented by: [id number] Cosigned by: [id number] Titration: 01/06/20 10:07 Dose: 50 mcg/kg/min, 27.8 mls/hr Documented by: [id number] Cosigned by: [id number] Admin: 01/06/20 06:31 Dose: 50 mcg/kg/min, 27.8 mls/hr Documented by: [id number] Cosigned by: [id number] Titration: 01/06/20 05:44 Dose: 50 mcg/kg/min, 27.8 mls/hr Documented by: [id number] Admin: 01/06/20 02:08 Dose: 50 mcg/kg/min, 27.8 mls/hr Documented by: [id number] Cosigned by: [id number] Titration: 01/06/20 02:06 Dose: 50 mcg/kg/min, 27.8 mls/hr Documented by: [id number] Cosigned by: [id number] Admin: 01/05/20 22:30 Dose: 50 mcg/kg/min, 27.8 mls/hr Documented by: [id number] Cosigned by: [id number] Titration: 01/05/20 22:26 Dose: 50 mcg/kg/min, 27.8 mls/hr Documented by: [id number] Cosigned by: [id number] Titration: 01/05/20 20:13 Dose: 50 mcg/kg/min, 27.8 mls/hr Documented by: [id number] Titration: 01/05/20 19:05 Dose: 30 mcg/kg/min, 16.7 mls/hr Documented by: [id number] Cosigned by: [id number] Admin: 01/05/20 17:54 Dose: 30 mcg/kg/min, 16.7 mls/hr Documented by: [id number] Cosigned by: [id number] Insulin Aspart (Insulin Aspart 100 Units/Ml 3 Ml Pen) 0 units SC Q4 [facility]; Protocol Stop: 02/04/20 15:59 Last Admin: 01/06/20 12:22 Dose: 11 units Documented by: [id number] Cosigned by: [id number] Admin: 01/06/20 08:42 Dose: 5 units Documented by: [id number] Cosigned by: [id number] Admin: 01/06/20 04:19 Dose: 6 units Documented by: [id number] Cosigned by: [id number] Admin: 01/06/20 00:02 Dose: 9 units Documented by: [id number] Cosigned by: [id number] Admin: 01/05/20 20:00 Dose: 8 units Documented by: [id number] Cosigned by: [id number] Admin: 01/05/20 17:09 Dose: 11 units Documented by: [id number] Cosigned by: [id number] Insulin Human NPH (Insulin Human Nph) 0 units SC DAILY@0800 [facility]; Protocol Stop: 02/03/20 07:59 Last Admin: 01/06/20 08:41 Dose: 22 units Documented by: [id number] Cosigned by: [id number] Admin: 01/05/20 08:09 Dose: 22 units Documented by: [id number] Cosigned by: [id number] Admin: 01/04/20 08:26 Dose: 18 units Documented by: [id number] Cosigned by: [id number] Miscellaneous (Icu Electrolyte Replacement Protocol) 1 ea N/A BID@,18 [facility]; Protocol Stop: 01/12/20 17:59 Last Admin: 01/05/20 18:24 Dose: 1 ea Documented by: [id number] Nutritional Formula (Peptamen Intense Vhp 1.0 Antonio 1,000 Ml Bag) 1,000 ml OG UD [facility]; Protocol Stop: 02/03/20 11:14 Last Admin: 01/05/20 16:58 Dose: 1,000 ml Documented by: [id number] Admin: 01/04/20 16:00 Dose: 1,000 ml Documented by: [id number] Potassium Phosphate (Pot Phosphate Monobasic W/ Sod Tab) 1 tab NG Q4H [facility] Stop: 01/06/20 16:01 Last Admin: 01/06/20 11:22 Dose: 1 tab Documented by: [id number] Admin: 01/06/20 07:45 Dose: 1 tab Documented by: [id number] Propofol (Propofol Bolus From Bag) 20 mg IV Q5M PRN PRN Reason: Sedation Stop: 01/08/20 17:46 Last Admin: 01/06/20 08:43 Dose: 20 mg Documented by: [id number] Cosigned by: [id number] Senna/Docusate Sodium (Docusate Sodium/Senna 50/8.6mg Tab) 1 tab PO QAM [facility] Stop: 02/04/20 10:14 Last Admin: 01/06/20 07:55 Dose: 1 tab Documented by: [id number] Admin: 01/05/20 11:41 Dose: 1 tab Documented by: [id number] Sodium Chloride (Sodium Chloride 0.9% 10ml Flush) 30 ml IV Q24H [facility] Stop: 01/06/20 16:46 Last Admin: 01/05/20 17:35 Dose: 30 ml Documented by: [id number] Admin: 01/04/20 17:03 Dose: 30 ml Documented by: [id number] Admin: 01/03/20 16:04 Dose: 30 ml Documented by: [id number] Admin: 01/02/20 17:34 Dose: 30 ml Documented by: [id number] Venlafaxine HCl (Venlafaxine Hcl 37.5 Mg Tab) 37.5 mg PO BID [facility] Stop: 02/04/20 20:59 Last Admin: 01/06/20 07:45 Dose: 37.5 mg Documented by: [id number] Admin: 01/05/20 20:07 Dose: 37.5 mg Documented by: [id number] Ziprasidone (Ziprasidone 20 Mg/Ml Sdv) 10 mg IM BID PRN PRN Reason: Agitation Stop: 02/02/20 10:29 Last Admin: 01/03/20 12:16 Dose: 10 mg Documented by: [id number] Discontinued Medications Dexamethasone (Dexamethasone Sod Inj 4 Mg/Ml Vial) 6 mg IV NOW STA Stop: 01/02/20 10:25 Last Admin: 01/02/20 10:58 Dose: 6 mg Documented by: [id number] Diphenhydramine HCl (Diphenhydramine 50 Mg/Ml Vial) Confirm Administered Dose 50 mg .ROUTE .STK-MED ONE Stop: 01/02/20 10:45 Last Admin: 01/02/20 10:49 Dose: 50 mg Documented by: [id number] Diphenhydramine HCl (Diphenhydramine 50 Mg/Ml Vial) 50 mg IM TODAY@1045 ONE Stop: 01/02/20 10:46 Last Admin: 01/02/20 11:30 Dose: Not Given Documented by: [id number] Enoxaparin Sodium (Enoxaparin Inj 40 Mg/0.4 Ml Syr) 40 mg SQ HS [facility] Stop: 02/01/20 20:59 Last Admin: 01/04/20 20:14 Dose: 40 mg Documented by: [id number] Admin: 01/03/20 20:22 Dose: 40 mg Documented by: [id number] Admin: 01/02/20 19:51 Dose: 40 mg Documented by: [id number] Etomidate (Etomidate 2 Mg/Ml 20 Ml Vial) 13 mg IV ONE ONE Stop: 01/02/20 11:06 Last Admin: 01/02/20 11:07 Dose: 13 mg Documented by: [id number] Haloperidol Lactate (Haloperidol Lactate 5 Mg/Ml 1 Ml Vial) Confirm Administered Dose 5 mg .ROUTE .STK-MED ONE Stop: 01/02/20 10:45 Last Admin: 01/02/20 10:49 Dose: 5 mg Documented by: [id number] Haloperidol Lactate (Haloperidol Lactate 5 Mg/Ml 1 Ml Vial) Confirm Administered Dose 5 mg .ROUTE .STK-MED ONE Stop: 01/02/20 10:50 Last Admin: 01/02/20 10:52 Dose: 5 mg Documented by: [id number] Haloperidol Lactate (Haloperidol Lactate 5 Mg/Ml 1 Ml Vial) 10 mg IM ONE ONE Stop: 01/02/20 10:46 Last Admin: 01/02/20 11:30 Dose: Not Given Documented by: [id number] Acetaminophen (Ofirmev) 1,000 mg in 100 mls @ 400 mls/hr IV NOW STA Stop: 01/02/20 10:47 Last Admin: 01/02/20 11:29 Dose: Not Given Documented by: [id number] Sodium Chloride (Nss 1000ml) 2,000 mls @ 999 mls/hr IV .Q2H1M ONE Stop: 01/02/20 12:33 Last Infusion: 01/02/20 13:22 Dose: 0 mls/hr Documented by: [id number] Admin: 01/02/20 10:58 Dose: 999 mls/hr Documented by: [id number] Lorazepam (Ativan) 1 mls @ 0 mls/min IM ONE ONE Stop: 01/02/20 10:46 Last Admin: 01/02/20 11:30 Dose: Not Given Documented by: [id number] Propofol (Diprivan) 1,000 mg in 100 mls @ 15.48 mls/hr IV .Q6H28M [facility]; Protocol Stop: 01/05/20 11:14 Last Titration: 01/05/20 20:03 Dose: 40 mcg/kg/min, 20.6 mls/hr Documented by: [id number] Admin: 01/05/20 13:35 Dose: 30 mcg/kg/min, 15.5 mls/hr Documented by: [id number] Cosigned by: [id number] Titration: 01/05/20 12:14 Dose: 30 mcg/kg/min, 15.5 mls/hr Documented by: [id number] Cosigned by: [id number] Admin: 01/05/20 10:57 Dose: Not Given Documented by: [id number] Admin: 01/05/20 10:53 Dose: Not Given Documented by: [id number] Admin: 01/05/20 09:38 Dose: Not Given Documented by: [id number] Admin: 01/05/20 09:38 Dose: Not Given Documented by: [id number] Admin: 01/05/20 09:24 Dose: Not Given Documented by: [id number] Titration: 01/05/20 09:08 Dose: 30 mcg/kg/min, 15.5 mls/hr Documented by: [id number] Titration: 01/05/20 08:30 Dose: 25 mcg/kg/min, 12.9 mls/hr Documented by: [id number] Titration: 01/05/20 07:06 Dose: 20 mcg/kg/min, 10.3 mls/hr Documented by: [id number] Cosigned by: [id number] Admin: 01/05/20 04:14 Dose: 20 mcg/kg/min, 10.3 mls/hr Documented by: [id number] Cosigned by: [id number] Titration: 01/05/20 04:14 Dose: 20 mcg/kg/min, 10.3 mls/hr Documented by: [id number] Cosigned by: [id number] Admin: 01/04/20 20:15 Dose: 20 mcg/kg/min, 10.3 mls/hr Documented by: [id number] Cosigned by: [id number] Titration: 01/04/20 20:15 Dose: 20 mcg/kg/min, 10.3 mls/hr Documented by: [id number] Cosigned by: [id number] Admin: 01/04/20 13:37 Dose: 20 mcg/kg/min, 10.3 mls/hr Documented by: [id number] Cosigned by: [id number] Titration: 01/04/20 13:37 Dose: 20 mcg/kg/min, 10.3 mls/hr Documented by: [id number] Cosigned by: [id number] Titration: 01/04/20 07:09 Dose: 20 mcg/kg/min, 10.3 mls/hr Documented by: [id number] Cosigned by: [id number] Titration: 01/04/20 07:08 Dose: 20 mcg/kg/min, 10.3 mls/hr Documented by: [id number] Cosigned by: [id number] Admin: 01/04/20 06:07 Dose: 25 mcg/kg/min, 12.9 mls/hr Documented by: [id number] Cosigned by: [id number] Titration: 01/04/20 06:07 Dose: 25 mcg/kg/min, 12.9 mls/hr Documented by: [id number] Cosigned by: [id number] Admin: 01/03/20 22:59 Dose: 25 mcg/kg/min, 12.9 mls/hr Documented by: [id number] Cosigned by: [id number] Titration: 01/03/20 22:59 Dose: 25 mcg/kg/min, 12.9 mls/hr Documented by: [id number] Cosigned by: [id number] Titration: 01/03/20 20:21 Dose: 25 mcg/kg/min, 12.9 mls/hr Documented by: [id number] Cosigned by: [id number] Admin: 01/03/20 20:21 Dose: 25 mcg/kg/min, 12.9 mls/hr Documented by: [id number] Cosigned by: [id number] Titration: 01/03/20 18:57 Dose: 25 mcg/kg/min, 12.9 mls/hr Documented by: [id number] Admin: 01/03/20 18:41 Dose: 25 mcg/kg/min, 12.9 mls/hr Documented by: [id number] Cosigned by: [id number] Titration: 01/03/20 16:43 Dose: 25 mcg/kg/min, 12.9 mls/hr Documented by: [id number] Titration: 01/03/20 10:08 Dose: 30 mcg/kg/min, 15.5 mls/hr Documented by: [id number] Cosigned by: [id number] Admin: 01/03/20 10:08 Dose: 30 mcg/kg/min, 15.5 mls/hr Documented by: [id number] Cosigned by: [id number] Admin: 01/03/20 07:32 Dose: Not Given Documented by: [id number] Admin: 01/03/20 07:32 Dose: Not Given Documented by: [id number] Titration: 01/03/20 07:19 Dose: 30 mcg/kg/min, 15.5 mls/hr Documented by: [id number] Admin: 01/03/20 04:10 Dose: 20 mcg/kg/min, 10.3 mls/hr Documented by: [id number] Cosigned by: [id number] Titration: 01/03/20 03:15 Dose: 20 mcg/kg/min, 10.3 mls/hr Documented by: [id number] Cosigned by: [id number] Titration: 01/02/20 19:04 Dose: 20 mcg/kg/min, 10.3 mls/hr Documented by: [id number] Cosigned by: [id number] Admin: 01/02/20 17:32 Dose: 20 mcg/kg/min, 10.3 mls/hr Documented by: [id number] Cosigned by: [id number] Titration: 01/02/20 17:32 Dose: 20 mcg/kg/min, 10.3 mls/hr Documented by: [id number] Cosigned by: [id number] Titration: 01/02/20 15:47 Dose: 20 mcg/kg/min, 10.3 mls/hr Documented by: [id number] Titration: 01/02/20 15:13 Dose: 35 mcg/kg/min, 18.1 mls/hr Documented by: [id number] Titration: 01/02/20 13:40 Dose: 30 mcg/kg/min, 15.5 mls/hr Documented by: [id number] Titration: 01/02/20 13:07 Dose: 20 mcg/kg/min, 10.3 mls/hr Documented by: [id number] Admin: 01/02/20 11:35 Dose: 5 mcg/kg/min, 2.6 mls/hr Documented by: [id number] Cosigned by: [id number] Midazolam HCl (Versed) 125 mg in 250 mls @ 0 mls/hr IV .Q0M [facility]; Protocol Stop: 02/01/20 15:14 Last Titration: 01/05/20 12:59 Dose: 0 mg/hr, 0 mls/hr Documented by: [id number] Cosigned by: [id number] Titration: 01/05/20 11:21 Dose: 0 mg/hr, 0 mls/hr Documented by: [id number] Cosigned by: [id number] Titration: 01/03/20 18:42 Dose: 0 mg/hr, 0 mls/hr Documented by: [id number] Cosigned by: [id number] Titration: 01/03/20 07:19 Dose: 2 mg/hr, 4 mls/hr Documented by: [id number] Cosigned by: [id number] Titration: 01/02/20 19:04 Dose: 1 mg/hr, 2 mls/hr Documented by: [id number] Cosigned by: [id number] Titration: 01/02/20 15:47 Dose: 2 mg/hr, 4 mls/hr Documented by: [id number] Cosigned by: [id number] Admin: 01/02/20 15:30 Dose: 1 mg/hr, 2 mls/hr Documented by: [id number] Cosigned by: [id number] Remdesivir 200 mg/ Sodium (Chloride) 250 mls @ 125 mls/hr IV ONE [facility]; Protocol Stop: 01/02/20 18:43 Last Infusion: 01/02/20 19:28 Dose: 125 mls/hr Documented by: [id number] Admin: 01/02/20 17:28 Dose: 125 mls/hr Documented by: [id number] Ceftriaxone Sodium 2,000 mg/ (Dextrose) 70 mls @ 100 mls/hr IV Q24H [facility]; Protocol Stop: 01/09/20 17:59 Last Infusion: 01/04/20 18:37 Dose: 0 mls/hr Documented by: [id number] Admin: 01/04/20 16:41 Dose: 100 mls/hr Documented by: [id number] Infusion: 01/03/20 17:05 Dose: 0 mls/hr Documented by: [id number] Admin: 01/03/20 16:03 Dose: 100 mls/hr Documented by: [id number] Infusion: 01/02/20 18:19 Dose: 0 mls/hr Documented by: [id number] Admin: 01/02/20 17:33 Dose: 100 mls/hr Documented by: [id number] Insulin Human Regular 9 units/ (Syringe) 9 mls @ 30 mls/min IV TODAY@1730 ONE Stop: 01/02/20 17:31 Last Admin: 01/02/20 17:29 Dose: 30 mls/min Documented by: [id number] Cosigned by: [id number] Potassium Phosphate 24 mmol/ (Sodium Chloride) 508 mls @ 88 mls/hr IV ONE ONE Stop: 01/03/20 12:01 Last Infusion: 01/03/20 13:07 Dose: 0 mls/hr Documented by: [id number] Admin: 01/03/20 06:28 Dose: 88 mls/hr Documented by: [id number] Dexmedetomidine HCl 200 mcg/ (Sodium Chloride) 50 mls @ 9.19 mls/hr IV .Q5H27M [facility]; Protocol Stop: 01/07/20 15:59 Last Titration: 01/04/20 02:45 Dose: 1 mcg/kg/hr, 23 mls/hr Documented by: [id number] Titration: 01/04/20 01:57 Dose: 1 mcg/kg/hr, 22.9 mls/hr Documented by: [id number] Admin: 01/03/20 22:30 Dose: 0.4 mcg/kg/hr, 9.2 mls/hr Documented by: [id number] Cosigned by: [id number] Titration: 01/03/20 22:30 Dose: 0.4 mcg/kg/hr, 9.2 mls/hr Documented by: [id number] Cosigned by: [id number] Titration: 01/03/20 18:57 Dose: 0.4 mcg/kg/hr, 9.2 mls/hr Documented by: [id number] Titration: 01/03/20 18:42 Dose: 0.4 mcg/kg/hr, 9.2 mls/hr Documented by: [id number] Admin: 01/03/20 16:03 Dose: 0.2 mcg/kg/hr, 4.6 mls/hr Documented by: [id number] Cosigned by: [id number] Dexmedetomidine HCl 400 mcg/ (Sodium Chloride) 100 mls @ 11.488 mls/hr IV .Q8H43M [facility]; Protocol Stop: 01/08/20 02:59 Last Admin: 01/05/20 17:56 Dose: Not Given Documented by: [id number] Admin: 01/05/20 17:49 Dose: Not Given Documented by: [id number] Admin: 01/05/20 17:49 Dose: Not Given Documented by: [id number] Titration: 01/05/20 16:15 Dose: 0.5 mcg/kg/hr, 11.5 mls/hr Documented by: [id number] Titration: 01/05/20 16:00 Dose: 0.6 mcg/kg/hr, 13.8 mls/hr Documented by: [id number] Titration: 01/05/20 15:30 Dose: 0.7 mcg/kg/hr, 16.1 mls/hr Documented by: [id number] Titration: 01/05/20 15:15 Dose: 0.8 mcg/kg/hr, 18.4 mls/hr Documented by: [id number] Titration: 01/05/20 15:00 Dose: 0.9 mcg/kg/hr, 20.7 mls/hr Documented by: [id number] Admin: 01/05/20 11:21 Dose: 1 mcg/kg/hr, 23 mls/hr Documented by: [id number] Cosigned by: [id number] Titration: 01/05/20 11:20 Dose: 1 mcg/kg/hr, 23 mls/hr Documented by: [id number] Cosigned by: [id number] Admin: 01/05/20 11:10 Dose: Not Given Documented by: [id number] Admin: 01/05/20 11:09 Dose: Not Given Documented by: [id number] Admin: 01/05/20 10:58 Dose: Not Given Documented by: [id number] Admin: 01/05/20 10:53 Dose: Not Given Documented by: [id number] Admin: 01/05/20 10:11 Dose: Not Given Documented by: [id number] Admin: 01/05/20 09:40 Dose: Not Given Documented by: [id number] Admin: 01/05/20 09:40 Dose: Not Given Documented by: [id number] Admin: 01/05/20 09:40 Dose: Not Given Documented by: [id number] Admin: 01/05/20 09:38 Dose: Not Given Documented by: [id number] Admin: 01/05/20 09:38 Dose: Not Given Documented by: [id number] Admin: 01/05/20 08:35 Dose: Not Given Documented by: [id number] Titration: 01/05/20 08:35 Dose: 1 mcg/kg/hr, 23 mls/hr Documented by: [id number] Admin: 01/05/20 07:31 Dose: 1.5 mcg/kg/hr, 34.5 mls/hr Documented by: [id number] Cosigned by: [id number] Titration: 01/05/20 07:06 Dose: 1.5 mcg/kg/hr, 34.5 mls/hr Documented by: [id number] Cosigned by: [id number] Admin: 01/05/20 04:11 Dose: 1.5 mcg/kg/hr, 34.5 mls/hr Documented by: [id number] Cosigned by: [id number] Titration: 01/05/20 03:07 Dose: 1.5 mcg/kg/hr, 34.5 mls/hr Documented by: [id number] Cosigned by: [id number] Admin: 01/05/20 00:13 Dose: 1.5 mcg/kg/hr, 34.5 mls/hr Documented by: [id number] Cosigned by: [id number] Titration: 01/05/20 00:12 Dose: 1.5 mcg/kg/hr, 34.5 mls/hr Documented by: [id number] Cosigned by: [id number] Admin: 01/04/20 21:18 Dose: 1.5 mcg/kg/hr, 34.5 mls/hr Documented by: [id number] Cosigned by: [id number] Titration: 01/04/20 20:29 Dose: 1.5 mcg/kg/hr, 34.5 mls/hr Documented by: [id number] Cosigned by: [id number] Admin: 01/04/20 17:35 Dose: 1.5 mcg/kg/hr, 34.5 mls/hr Documented by: [id number] Cosigned by: [id number] Titration: 01/04/20 17:32 Dose: 1.5 mcg/kg/hr, 34.5 mls/hr Documented by: [id number] Cosigned by: [id number] Admin: 01/04/20 14:38 Dose: 1.5 mcg/kg/hr, 34.5 mls/hr Documented by: [id number] Cosigned by: [id number] Titration: 01/04/20 13:19 Dose: 1.5 mcg/kg/hr, 34.5 mls/hr Documented by: [id number] Cosigned by: [id number] Admin: 01/04/20 10:25 Dose: 1.5 mcg/kg/hr, 34.5 mls/hr Documented by: [id number] Cosigned by: [id number] Titration: 01/04/20 10:25 Dose: 1.5 mcg/kg/hr, 34.5 mls/hr Documented by: [id number] Cosigned by: [id number] Admin: 01/04/20 07:39 Dose: 1.5 mcg/kg/hr, 34.5 mls/hr Documented by: [id number] Cosigned by: [id number] Titration: 01/04/20 07:27 Dose: 1.5 mcg/kg/hr, 34.5 mls/hr Documented by: [id number] Cosigned by: [id number] Titration: 01/04/20 07:09 Dose: 1.5 mcg/kg/hr, 34.5 mls/hr Documented by: [id number] Cosigned by: [id number] Titration: 01/04/20 07:08 Dose: 1.5 mcg/kg/hr, 34.5 mls/hr Documented by: [id number] Cosigned by: [id number] Titration: 01/04/20 06:08 Dose: 1.5 mcg/kg/hr, 34.5 mls/hr Documented by: [id number] Admin: 01/04/20 03:45 Dose: 1 mcg/kg/hr, 23 mls/hr Documented by: [id number] Cosigned by: [id number] Calcium Gluconate 1,000 mg/ (Sodium Chloride) 60 mls @ 240 mls/hr IV NOW STA Stop: 01/04/20 05:57 Last Infusion: 01/04/20 06:22 Dose: 240 mls/hr Documented by: [id number] Admin: 01/04/20 06:07 Dose: 240 mls/hr Documented by: [id number] Acetaminophen (Ofirmev) 1,000 mg in 100 mls @ 400 mls/hr IV Q8H PRN PRN Reason: Fever Stop: 01/07/20 05:42 Last Infusion: 01/04/20 11:32 Dose: 0 mls/hr Documented by: [id number] Admin: 01/04/20 10:24 Dose: 400 mls/hr Documented by: [id number] Potassium Phosphate 21 mmol/ (Sodium Chloride) 507 mls @ 88 mls/hr IV ONE ONE Stop: 01/04/20 11:45 Last Infusion: 01/04/20 11:55 Dose: 0 mls/hr Documented by: [id number] Admin: 01/04/20 06:07 Dose: 88 mls/hr Documented by: [id number] Calcium Gluconate 2,000 mg/ (Sodium Chloride) 70 mls @ 240 mls/hr IV NOW ONE Stop: 01/04/20 11:02 Last Infusion: 01/04/20 11:55 Dose: 0 mls/hr Documented by: [id number] Admin: 01/04/20 10:41 Dose: 240 mls/hr Documented by: [id number] Acetaminophen (Ofirmev) 1,000 mg in 100 mls @ 400 mls/hr IV NOW STA Stop: 01/05/20 03:26 Last Infusion: 01/05/20 04:28 Dose: 400 mls/hr Documented by: [id number] Admin: 01/05/20 04:10 Dose: 400 mls/hr Documented by: [id number] Furosemide 40 mg/ Syringe 4 mls @ 4 mls/min IV ONE ONE Stop: 01/05/20 08:46 Last Admin: 01/05/20 09:07 Dose: 4 mls/min Documented by: [id number] Magnesium Sulfate/Dextrose (Magnesium Sulfate / D5w) 1 gm in 100 mls @ 50 mls/h r IV ONE ONE Stop: 01/05/20 21:59 Last Infusion: 01/05/20 22:11 Dose: 50 mls/hr Documented by: [id number] Admin: 01/05/20 20:11 Dose: 50 mls/hr Documented by: [id number] Influenza Virus Vaccine Quadrival (Influenza Virus Quad Vaccine 0.5 Ml Syr) 0.5 ml IM .ONCE ONE Stop: 01/02/20 16:01 Last Admin: 01/02/20 16:56 Dose: Not Given Documented by: [id number] Insulin Aspart (Insulin Aspart 100 Units/Ml 3 Ml Pen) 3 units SC NOW ONE Stop: 01/02/20 17:16 Last Admin: 01/02/20 17:30 Dose: 3 units Documented by: [id number] Cosigned by: [id number] Insulin Aspart (Insulin Aspart 100 Units/Ml 3 Ml Pen) 0 units SC Q4 CELESTE Stop: 02/01/20 19:59 Last Admin: 01/04/20 11:47 Dose: 6 units Documented by: [id number] Cosigned by: [id number] Admin: 01/04/20 08:27 Dose: 2 units Documented by: [id number] Cosigned by: [id number] Admin: 01/04/20 03:55 Dose: Not Given Documented by: [id number] Cosigned by: [id number] Admin: 01/04/20 00:15 Dose: Not Given Documented by: [id number] Cosigned by: [id number] Admin: 01/03/20 20:23 Dose: 3 units Documented by: [id number] Cosigned by: [id number] Admin: 01/03/20 16:07 Dose: 5 units Documented by: [id number] Cosigned by: [id number] Admin: 01/03/20 12:19 Dose: 4 units Documented by: [id number] Cosigned by: [id number] Admin: 01/03/20 07:44 Dose: 2 units Documented by: [id number] Cosigned by: [id number] Admin: 01/03/20 05:33 Dose: Not Given Documented by: [id number] Cosigned by: [id number] Admin: 01/03/20 00:51 Dose: 3 units Documented by: [id number] Cosigned by: [id number] Admin: 01/02/20 20:01 Dose: 6 units Documented by: [id number] Cosigned by: [id number] Insulin Human NPH (Insulin Human Nph) 18 units SC NOW ONE Stop: 01/02/20 17:16 Last Admin: 01/02/20 17:29 Dose: 18 units Documented by: [id number] Cosigned by: [id number] Insulin Human NPH (Insulin Human Nph) 18 units SC DAILY@0800 ONE Stop: 01/03/20 08:01 Last Admin: 01/03/20 07:38 Dose: 18 units Documented by: [id number] Cosigned by: [id number] Insulin Human Regular (Insulin Human Regular) 0 units SC Q4 CELESTE; Protocol Stop: 02/03/20 15:59 Last Admin: 01/05/20 11:43 Dose: 9 units Documented by: [id number] Cosigned by: [id number] Admin: 01/05/20 08:11 Dose: 3 units Documented by: [id number] Cosigned by: [id number] Admin: 01/05/20 04:10 Dose: 1 units Documented by: [id number] Cosigned by: [id number] Admin: 01/04/20 23:12 Dose: 5 units Documented by: [id number] Cosigned by: [id number] Admin: 01/04/20 20:15 Dose: 11 units Documented by: [id number] Cosigned by: [id number] Admin: 01/04/20 17:02 Dose: 8 units Documented by: [id number] Cosigned by: [id number] Ioversol (Optiray 320 125ml) 120 ml IV ONCE ONE Stop: 01/02/20 12:16 Last Admin: 01/02/20 12:15 Dose: 120 ml Documented by: [id number] Lorazepam (Lorazepam 2 Mg/4 Ml Vial) Confirm Administered Dose 2 mg .ROUTE .STK- MED ONE Stop: 01/02/20 10:45 Last Admin: 01/02/20 10:48 Dose: 2 mg Documented by: [id number] Magnesium Oxide (Magnesium Oxide 400 Mg Tab) 400 mg NG Q4H CELESTE Stop: 01/06/20 12:01 Last Admin: 01/06/20 11:22 Dose: 400 mg Documented by: [id number] Admin: 01/06/20 07:44 Dose: 400 mg Documented by: [id number] Miscellaneous (Rapid Sequence Induction Bag) Confirm Administered Dose 1 ea .ROUTE .STK-MED ONE Stop: 01/02/20 10:45 Last Admin: 01/02/20 11:29 Dose: 1 ea Documented by: [id number] Oxycodone HCl (Oxycodone Hcl Soln 5 Mg/5 Ml Udc) 5 mg PO TID PRN PRN Reason: Pain Stop: 01/19/20 09:59 Last Admin: 01/05/20 20:10 Dose: 5 mg Documented by: [id number] Potassium Chloride (Potassium Chloride 20 Meq/15 Ml Udc) 40 meq PO NOW STA Stop: 01/05/20 09:22 Last Admin: 01/05/20 09:39 Dose: 40 meq Documented by: [id number] Potassium Chloride (Potassium Chloride 20 Meq/15 Ml Udc) 40 meq PO NOW STA Stop: 01/05/20 19:28 Last Admin: 01/05/20 20:06 Dose: 40 meq Documented by: [id number] Potassium Chloride (Potassium Chloride 20 Meq/15 Ml Udc) 20 meq NG Q4H CELESTE Stop: 01/06/20 12:01 Last Admin: 01/06/20 11:22 Dose: 20 meq Documented by: [id number] Admin: 01/06/20 07:45 Dose: 20 meq Documented by: [id number] Propofol (Propofol Iv Emulsion 10 Mg/Ml 100 Ml Vial) Confirm Administered Dose 1,000 mg IV .STK-MED ONE Stop: 01/02/20 11:09 Last Admin: 01/02/20 11:28 Dose: 1,000 mg Documented by: [id number] Cosigned by: [id number] Rocuronium Lost[place] (Rocuronium Lostant 10 Mg/Ml 5 Ml Vial) 85 mg IV TODAY@1106 [facility] Stop: 01/02/20 11:07 Last Admin: 01/02/20 11:31 Dose: 85 mg Documented by: [id number] Cosigned by: [id number] Ziprasidone (Ziprasidone Hcl 20 Mg Cap) 20 mg PO BID CELESTE Stop: 12/29/20 10:14 Last Admin: 01/05/20 08:06 Dose: 20 mg Documented by: [id number] Admin: 01/04/20 20:15 Dose: 20 mg Documented by: [id number] Admin: 01/04/20 10:41 Dose: 20 mg Documented by: [id number] Description This is a 21 electrode EEG with a single channel dedicated to limited EKG. The electrodes were placed in accordance with the International 10-20 system. This EEG was done in the Covid unit as a bedside recording and is of good technical quality with few or no muscle movement artifact despite effective video analysis of patient movement and behavior demonstrates quite a bit of head rolling arm movement etc. but no clear evidence that the patient is following commands although all 470s appear to be equally mobile under volitional control. Photic stimulation was performed and drowsiness and light sleep were not clearly seen Under these conditions there is no evidence for a normal background over the posterior head region maximal bilaterally symmetrical modest multiple somatic of up to 6 to 7 Hz maximal frequency and of up to 30 to 40 V in amplitude. Over the central regions this activity should facilitate and is intermixed with delta waveforms which are not particularly rhythmic or more polymorphic amplitude up to 60 V) frequency of about 3 to 4 Hz superimposed on the 5 to 6 Hz theta activity beta activity is barely discernible in the frontal regions At no time during the current tracing is or evidence of potentially epileptogenic features for polyspike or spike-wave burst, focal sharp waves or focal spik Interpretation This is a moderately diffusely abnormal EEG revealing no evidence for focal abnormalities but rather a generalized process affecting neuronal structure and/or function in a diffuse fashion and without any epileptogenic features Clinical Correlation Moderately diffusely abnormal EEG consistent with a nonspecific nonfocal encephalopathy without potentially epileptogenic features [place] MD
[2020-01-06] MEDS: THIAMINE HCL 500 MG in SODIUM CHLORIDE 0.9% 50 ML IV SCH ×2 (13:49→20:26)
--- NOTE | 2020-01-06 14:51 | Hospitalist Progress Note ---
Date of Service January 06, 2020 Assessment & Plan (1) Pneumonia due to COVID-19 virus: Son recently ill with COVID-19. Patient was seen in outpatient clinic on 12/31/19. SARS-CoV-2 PCR ordered- results pending as of 01/03/2020 Patient presented to ED with fever, dyspnea, hypoxia, delirium. Chest x-ray and CT demonstrated bilateral infiltrates consistent with COVID pneumonia. SARS-CoV-2 PCR in ED positive. Lymphocyte count 880.Procalcitonin 0.60. Intubated in ED most likely secondary to combativeness & admitted to ICU Consult Pulmonary Medicine / CCM-appreciate input and recommendation. Further COVID-specific management per Pulm / CCM. Has been on Remdesivir and dexamethasone Has been started on intravenous ceftriaxone and doxycycline for possible superimposed bacterial pneumonia Appreciate ID input and recommendation: No data to suggest a benefit from antibody/plasma this far from onset. Consider giving therapeutic dose of Lovenox and consider stopping azithromycin Remains intubated and sedated Acute metabolic encephalopathy [id number], pneumonia, respiratory failure, narcotic use Requiring Precedex and Geodon to control agitation Remains febrile Neurologist has been consulted EEG has been done and awaiting lumbar puncture tomorrow Blood and urine cultures have been negative Sputum has been sent for culture and sensitivity (2) Acute respiratory failure with hypoxia: O2 sats 72% on RA at home when EMS arrived. Intubated in ED. No apparent pulmonary emboli per CTA chest. Hypoxia probably secondary to COVID pneumonia. Continue supplemental O2 and ventilatory support as needed. Weaning off efforts have failed so far due to increased agitation and combativeness Could be secondary to withdrawal from alcohol and/or narcotics (3) Altered mental status: Very confused this morning. No acute findings on CT of head. Probably multifactorial toxic / metabolic encephalopathy due to hypoxia, COVID- 19 infection, etc. (4) SIMIN (obstructive sleep apnea): Sleep apnea on BiPAP at home. Resume HS BiPAP after extubation. (5) Chronic narcotic use: Chronic neck and back pain treated with oxycodone / acetaminophen. Monitor for signs / symptoms of narcotic withdrawal. Having withdrawal from narcotics and or alcohol and requiring Precedex infusion and occasional Geodon through the NG tube (6) Abnormal urinalysis: UA shows 10-30 WBC's, negative leukocyte esterase, negative nitrites, many epithelial cells. UTI unlikely-urine culture is negative (7) GERD (gastroesophageal reflux disease): Continue PPI. (8) Diabetes mellitus type 2, controlled: Diet-controlled. Random glucose in ED 203. Received dexamethasone. Check Hgb A1c. Monitor blood sugars. Insulin coverage per protocol. Nutrition Getting NGT feeding (9) DVT prophylaxis: SQ enoxaparin. Ambulate when able. (10) Discharge planning issues: Discharge disposition to be determined. Family Medicine follow-up with Dr. Barone. Son Edwin given update by phone. He would appreciate updates from providers. His cell #: [phone]-updated by the ICU provider Admission and Anticipated Discharge Date Admission Date: January 02, 2020 Subjective 01/03/2020 The patient was seen and examined in ICU Remains on vent and sedated 01/04/2020 The patient was seen and examined in ICU She remains intubated and the weaning was not possible because of agitation and combativeness Remains sedated on vent and requiring Precedex infusion and also as needed Geodon 01/05/2020 The patient was seen and examined in ICU She remains intubated and sedated Not yet ready to be extubated 01/06/2020 The patient was seen and examined in ICU She remains intubated and sedated Weaning from ventilation failed Review of Systems Review of Systems: Unobtainable due to endotracheal tube Physical Exam Physical Exam: Remains on vent and sedated Constitutional: well developed, well nourished and + ill appearing ENMT: external ear and nose normal, oropharynx normal Neck: trachea midline, no thyromegaly Respiratory: no respiratory distress Auscultation: + diminished lung sounds Cardiovascular: Rate/Rhythm: regular rate and regular rhythm Heart Sounds: no murmur Extremities: no edema Gastrointestinal (Abdomen): Inspection/Auscultation: normal bowel sounds; abdomen not distended Percussion/Palpation: abdomen soft Neurologic: Remains sedated and intubated Lymphatic: no cervical or axillary lymphadenopathy Results & Data Results & Data ([facility]) Vital Signs (Past 12 Hours) Vital Signs Temp Pulse Resp BP Pulse Ox 01/06/20 14:27 37.7 C H 89 120/69 93 01/06/20 13:27 37.9 C H 82 110/72 91 01/06/20 12:27 38.3 C H 103 H 115/77 93 01/06/20 11:27 38.3 C H 114 H 141/91 H 92 01/06/20 10:27 38.2 C H 112 H 82/70 L 91 01/06/20 09:57 118 H 26 H 92 01/06/20 09:27 38.1 C H 116 H 127/73 93 01/06/20 08:27 38.1 C H 122 H 114/75 96 01/06/20 08:00 110 H 01/06/20 07:31 115 H 22 97 01/06/20 07:27 38.0 C H 119 H 94/63 L 97 01/06/20 04:00 37.8 C H 103 H 94 01/06/20 03:30 98 H 24 95 01/06/20 03:00 37.5 C 98 H 96 Laboratory Results Short CBC 01/06/20 Range/Units 05:05 WBC 11.83 H (4.8-10.8) K/uL Hgb 11.0 L (12.0-16.0) g/dL Hct 34.2 L (37-47) % Plt Count 218 (130-400) K/uL BMP 01/05/20 01/06/20 18:46 05:05 Sodium 140 140 Potassium 3.4 L 3.7 Chloride 109 H 110 H Carbon Dioxide 26 26 BUN 19 H 22 H Creatinine 0.66 0.54 L Glucose 229 H 178 H Calcium 7.8 L 7.8 L Liver Function 01/06/20 Range/Units 05:05 Total Bilirubin 0.3 (0.2-1) mg/dl AST 35 (15-37) U/L ALT 22 (12-78) U/L Alkaline Phosphatase 92 (45-117) U/L Albumin 2.1 L (3.4-5.0) gm/dl Urine 01/06/20 Range/Units 10:15 Urine Color Yellow Urine Appearance Clear (Clear) Urine pH 6.5 (4.5-7.5) Ur Specific [place] 1.021 (1.000-1.030) Urine Protein Trace H (Negative) Urine Glucose (UA) Trace H (Negative) Medications Administered Current Inpatient Medications Enoxaparin Sodium (Enoxaparin Inj 40 Mg/0.4 Ml Syr) 40 mg SQ BID CELESTE Stop: 02/01/20 20:59 Last Admin: 01/06/20 07:46 Dose: 40 mg Documented by: Fentanyl Citrate (Fentanyl Bolus From Bag) 50 mcg IV Q60M PRN PRN Reason: Pain or Agitation Stop: 01/16/20 15:14 Last Admin: 01/06/20 08:43 Dose: 50 mcg Documented by: Folic Acid (Folic Acid 1 Mg Tab) 1 mg PO QAM [facility] Stop: 02/05/20 09:29 Last Admin: 01/06/20 10:21 Dose: 1 mg Documented by: Gabapentin (Gabapentin 250 Mg/5 Ml 470 Ml Btl) 900 mg PO TID [facility] Stop: 02/04/20 13:59 Last Admin: 01/06/20 13:49 Dose: 900 mg Documented by: Fentanyl Citrate (Fentanyl Drip) 1,250 mcg in 250 mls @ 25 mls/hr IV .Q10H [facility]; Protocol Stop: 01/16/20 15:14 Last Titration: 01/06/20 10:00 Dose: 125 mcg/hr, 25 mls/hr Documented by: Pantoprazole Sodium 40 mg/ (Syringe) 10 mls @ 5 mls/min IV DAILY@1100 [facility] Stop: 02/02/20 10:59 Last Admin: 01/06/20 10:47 Dose: 5 mls/min Documented by: Dexamethasone 6 mg/ Syringe 1.5 mls @ 1 mls/min IV QD@08 [facility] Stop: 02/02/20 07:59 Last Admin: 01/06/20 07:36 Dose: 1 mls/min Documented by: Remdesivir 100 mg/ Sodium (Chloride) 250 mls @ 250 mls/hr IV Q24H [facility]; Protocol Stop: 01/06/20 17:44 Last Infusion: 01/05/20 18:34 Dose: Infused Documented by: Azithromycin 250 mg/ Dextrose 252.5 mls @ 125 mls/hr IV Q24H [facility]; Protocol Stop: 01/09/20 17:59 Last Infusion: 01/05/20 19:37 Dose: Infused Documented by: Propofol (Diprivan) 1,000 mg in 100 mls @ 27.81 mls/hr IV .Q3H36M [facility]; Protocol Stop: 01/08/20 17:59 Last Admin: 01/06/20 13:48 Dose: 50 mcg/kg/min, 27.8 mls/hr Documented by: Thiamine HCl 500 mg/ Sodium (Chloride) 55 mls @ 208 mls/hr IV TID [facility] Stop: 02/05/20 13:59 Last Infusion: 01/06/20 14:31 Dose: Infused Documented by: Lorazepam (Ativan) 1 mg in 2 mls @ 0.5 mls/min IV Q6H PRN PRN Reason: Agitation Stop: 02/05/20 14:03 Insulin Aspart (Insulin Aspart 100 Units/Ml 3 Ml Pen) 0 units SC Q4 [facility]LE[facility]; Protocol Stop: 02/04/20 15:59 Last Admin: 01/06/20 12:22 Dose: 11 units Documented by: Insulin Human NPH (Insulin Human Nph) 0 units SC DAILY@0800 [facility]; Protocol Stop: 02/03/20 07:59 Last Admin: 01/06/20 08:41 Dose: 22 units Documented by: Miscellaneous (Icu Electrolyte Replacement Protocol) 1 ea N/A BID@06,18 [facility]; Protocol Stop: 01/12/20 17:59 Last Admin: 01/05/20 18:24 Dose: 1 ea Documented by: Miscellaneous Information (Pharmacy Glycemic Mgmt Consult) 1 ea N/A UD PRN PRN Reason: Consult Stop: 02/01/20 17:04 Nutritional Formula (Peptamen Intense Vhp 1.0 [place] 1,000 Ml Bag) 1,000 ml OG UD [facility]; Protocol Stop: 02/03/20 11:14 Last Admin: 01/05/20 16:58 Dose: 1,000 ml Documented by: Oxycodone HCl (Oxycodone Hcl Soln 5 Mg/5 Ml Udc) 5 mg PO Q8 PRN PRN Reason: Pain Stop: 01/19/20 09:59 Polyethylene Glycol (Polyethylene (Miralax) 17 Gm Pack) 17 gm PO DAILY PRN PRN Reason: Constipation Stop: 02/04/20 10:15 Potassium Phosphate (Pot Phosphate Monobasic W/ Sod Tab) 1 tab NG Q4H [facility]LE[facility] Stop: 01/06/20 16:01 Last Admin: 01/06/20 11:22 Dose: 1 tab Documented by: Propofol (Propofol Bolus From Bag) 20 mg IV Q5M PRN PRN Reason: Sedation Stop: 01/08/20 17:46 Last Admin: 01/06/20 08:43 Dose: 20 mg Documented by: Senna/Docusate Sodium (Docusate Sodium/Senna 50/8.6mg Tab) 1 tab PO QAM [facility]LE[facility] Stop: 02/04/20 10:14 Last Admin: 01/06/20 07:55 Dose: 1 tab Documented by: Sodium Chloride (Sodium Chloride 0.9% 10ml Flush) 30 ml IV Q24H [facility] Stop: 01/06/20 16:46 Last Admin: 01/05/20 17:35 Dose: 30 ml Documented by: Venlafaxine HCl (Venlafaxine Hcl 37.5 Mg Tab) 37.5 mg PO BID [facility] Stop: 02/04/20 20:59 Last Admin: 01/06/20 07:45 Dose: 37.5 mg Documented by: Ziprasidone (Ziprasidone 20 Mg/Ml Sdv) 10 mg IM BID PRN PRN Reason: Agitation Stop: 02/02/20 10:29 Last Admin: 01/03/20 12:16 Dose: 10 mg Documented by:
[2020-01-06] MEDS: PEPTAMEN INTENSE VHP 1.0 CAL 1,000 ML BAG OG SCH (15:28)
--- NOTE | 2020-01-06 15:53 | Communication Note ---
Date of Service: January 06, 2020 Neurology has been consulted on Lena Max who is a 44-year-old woman with obesity, history of neck surgery is post tubal ligation hysterectomy with obstructive sleep apnea and chronic back pain does apparently consume ethanol on a regular basis and who contracted COVID-19 and developed acute respiratory failure with sufficient hypoxemia warrant intubation and remains agitated and confused despite being treated with 2 antibiotics, remdesivir, and dexamethasone Question has been raised about Covid encephalitis, withdrawal from some of her chronic medications including gabapentin and possible alcohol withdrawal She was assessed by video today. I observed the EEG and the video portion of the examination was quite adequate to assess her condition which could be easily classified as a nonspecific encephalopathy with roving head and eye movements, random movements of the extremities and limited to no ability to follow commands EEG does show evidence for mild to moderate generalized slow wave activity without potentially epileptiform patterns and with no focality Consideration is being given to performing an MRI and a lumbar puncture Infectious diseases on board and is advising regarding antibiotic coverage At this point I am not sure neurology has a lot more to offer. There is certainly no evidence for nonconvulsive seizure activity or status epilepticus, the EEG shows no lateralizing features which would tend implicate a structural lesion and she does have COVID-19 infection and had a probable hypoxic encephalopathy building up before intubation She is being appropriately treated with thiamine in addition to the standard treatment of Covid with dexamethasone and remdesivir Her antibiotic coverage is being apparently discontinued Home medications including Effexor 75 mg, Topamax 25 mg twice a day oxycodone every 8 hours and gabapentin 1200 mg 3 times a day were apparently held and certainly withdrawal from the latter could be responsible for some of the agitation we are currently seeing I do not know how much ethanol she was consuming I would suggest reinstituting the gabapentin at least half the dose she was taking at home which would also be part of a potential delirium tremens protocol, continue the thiamine multivitamins and agree that if her condition does not significantly improve then imaging studies may be indicated although the mechanics of doing an MRI on the patient in the Covid unit in an agitated state may prove to be extremely difficult. CT could be substituted but I am not sure it is going to add a great degree of information about a potential inflammatory process and the logistics of performing it may prove to be difficult as well I am not sure a lumbar puncture is going to add any additional value certainly would not recommend doing 1 without imaging studies as even if this is a Covid encephalitis there is really no designated treatment other than the remdesivir a nd Decadron I would defer to the opinion of infectious disease however regarding this diagnostic examination and its necessity in the setting We will follow along by chart review but presently not sure actually evaluating her at the bedside is getting add any additional value [place] MD
[2020-01-06] MEDS: REMDESIVIR 100 MG in SODIUM CHLORIDE 0.9% 230 ML IV SCH (16:54)
[2020-01-06] MEDS: SODIUM CHLORIDE 0.9% 10ML FLUSH IV SCH (17:43)
[2020-01-06] MEDS: AZITHROMYCIN 250 MG in DEXTROSE 5% 250 ML IV SCH (17:45)
[2020-01-06] MEDS: ICU ELECTROLYTE REPLACEMENT PROTOCOL SCH (18:13)
[2020-01-06] MEDS: LORazepam 1 MG/2 ML VIAL IV PRN (18:18)
[2020-01-06 21:18] LABS: BUN Creatinine Ratio 32.6 (10-20); Creatinine Clr Calc Pharmacy 141.4 ml/min; Est GFR (African American) 133.1; Est GFR (Non-African American) 114.9; Potassium 3.8 mmol/L (3.5-5.1)
[2020-01-07] MEDS: INSULIN ASPART 100 UNITS/ML 3 ML PEN SC SCH ×6 (00:06→21:47)
[2020-01-07] MEDS: propofoL 1,000 MG/100 ML VIAL IV SCH ×8 (03:18→18:49)
[2020-01-07 05:10] LABS: iSTAT Allen Test Pass; iSTAT Art Bld Gas pCO2 Correct 39 mmHg (35-46); iSTAT Art Bld Gas pH Corrected 7.419 (7.35-7.45); iSTAT Arterial Blood Gas HCO3 25 meg/L (19-24); iSTAT Arterial Blood Gas pCO2 37 mmHg (35-46); iSTAT Arterial Blood Gas pH 7.44 (7.35-7.45); iSTAT Arterial Blood Gas pO2 63 mmHg (80-95); iSTAT Arterial Blood Gas pO2 C 69; iSTAT Carbon Dioxide 26 mmol/L (24-31); iSTAT FiO2 35 %; iSTAT Hematocrit 30 % (37-47); iSTAT Hemoglobin 10.2 g/dl (12.0-16.0); iSTAT Potassium 3.6 mmol/L (3.3-5.0); iSTAT Site R Radial; iSTAT Sodium 140 mmol/L (135-144)
[2020-01-07] MEDS: fentaNYL DRIP 1,250 MCG/250 ML BAG IV SCH ×3 (05:57→18:49)
[2020-01-07 06:25] LABS: Basophils # (auto) 0.01 K/uL (0-0.2); Basophils % (auto) 0.1 %; Eosinophils # (auto) 0.05 K/uL (0-0.5); Eosinophils % (auto) 0.4 %; Hematocrit (blood only) 33.4 % (37-47); Hemoglobin 10.8 g/dL (12.0-16.0); Immature Granulocytes # (auto) 0.25 K/uL (0.00-0.02); Immature Granulocytes % (auto) 1.9 %; Lymphocytes # (auto) 2.11 K/uL (1.2-3.4); Lymphocytes % (auto) 15.8 %; Mean Corpuscular Hemoglobin 29.6 pg (25-34); Mean Corpuscular Hgb Conc 32.3 g/dL (32-36); Mean Corpuscular Volume 91.5 fL (80-100); Mean Platelet Volume 11.7 fL (7.4-10.4); Monocytes # (auto) 0.58 K/uL (0.11-0.59); Monocytes % (auto) 4.4 %; Neutrophils # (auto) 10.33 K/uL (1.4-6.5); Neutrophils % (auto) 77.4 %; Nucleated RBC # (auto) 0.06 K/uL (0-0); Nucleated RBC % (auto) 0.5 %; Platelet Count 263 K/uL (130-400); Polychromasia 1+; RDW Standard Deviation 46.8 fL (36.4-46.3); Red Blood Count 3.65 M/uL (4.2-5.4); White Blood Count 13.33 K/uL (4.8-10.8)
[2020-01-07] MEDS ORDERED: ACETAMINOPHEN 1,000 MG/100 ML VIAL IV STA (06:28)
[2020-01-07 06:29] LABS: BUN Creatinine Ratio 35.5 (10-20); Est GFR (Non-African American) 115.6; Magnesium 1.8 mg/dl (1.8-2.4); Potassium 3.7 mmol/L (3.5-5.1)
[2020-01-07] MEDS ORDERED: ACETAMINOPHEN 1000 MG/100 ML IV IV ONE (06:31)
[2020-01-07 06:33] LABS: Phosphorus 1.7 mg/dl (2.5-4.9)
[2020-01-07] MEDS: PROPOFOL BOLUS FROM BAG IV PRN (07:02)
[2020-01-07] MEDS: LORazepam 1 MG/2 ML VIAL IV PRN (07:54)
[2020-01-07] MEDS ORDERED: LORazepam 2 MG/4 ML VIAL IV STA ×2 (07:55→07:56)
[2020-01-07] MEDS ORDERED: LORazepam 1 MG/2 ML VIAL IV STA (07:56)
[2020-01-07] MEDS: FOLIC ACID 1 MG TAB PO SCH (07:57)
[2020-01-07] MEDS: dexAMETHasone 6 MG in SYRINGE 0 ML IV SCH (07:58)
[2020-01-07] MEDS: VENLAFAXINE HCL 37.5 MG TAB PO SCH ×2 (07:59→21:49)
[2020-01-07] MEDS: ENOXAPARIN INJ 40 MG/0.4 ML SYR SQ SCH ×2 (07:59→21:48)
[2020-01-07] MEDS: GABAPENTIN 250 MG/5 ML 470 ML BTL PO SCH ×3 (07:59→21:55)
[2020-01-07] MEDS: THIAMINE HCL 500 MG in SODIUM CHLORIDE 0.9% 50 ML IV SCH ×3 (08:00→21:54)
[2020-01-07] MEDS ORDERED: FUROSEMIDE 20 MG in SYRINGE 0 ML IV ONE (08:15)
[2020-01-07] MEDS ORDERED: SODIUM PHOSPHATE 3 MMOL/1 ML INFUSION IV STA (08:26)
[2020-01-07] MEDS: INSULIN HUMAN NPH SC SCH (08:30)
[2020-01-07] MEDS: ICU ELECTROLYTE REPLACEMENT PROTOCOL SCH ×2 (08:36→17:54)
[2020-01-07] MEDS: POTASSIUM CHLORIDE 20 MEQ/15 ML UDC NG SCH ×2 (08:48→12:22)
[2020-01-07] MEDS: METOPROLOL TARTRATE 25 MG TAB PO SCH ×3 (08:48→21:50)
[2020-01-07] MEDS: MAGNESIUM OXIDE 400 MG TAB NG SCH ×2 (08:48→12:22)
[2020-01-07] MEDS: QUEtiapine FUMARATE 25 MG TABLET PO SCH ×2 (08:49→21:49)
[2020-01-07] MEDS: POLYETHYLENE (MIRALAX) 17 GM PACK PO PRN (08:58)
[2020-01-07] MEDS: DOCUSATE SODIUM/SENNA 50/8.6MG TAB PO SCH (08:58)
[2020-01-07] MEDS ORDERED: SODIUM PHOSPHATE 21 MMOL in SODIUM CHLORIDE 0.9% 500 ML IV ONE (09:00)
--- NOTE | 2020-01-07 09:35 | XRay Report ---
XR chest 1V portable CLINICAL HISTORY: Respiratory failure COMPARISON STUDY: 01/06/2020 FINDINGS: There is an endotracheal tube with its tip 2.5 cm above the yoni. There is a nasogastric tube positioned with its tip at the level of the esophagogastric junction. The heart is mildly enlarg ed. There are persistent bilateral pulmonary airspace opacities. Postsurgical changes are present wit hin the cervical spine. No pneumothorax is visualized.[ IMPRESSION: 1. Persistent bilateral pulmonary airspace opacities 2. Endotracheal tube 2.5 cm above the yoni 3. Nasogastric tube with its tip at the level of the esophagogastric junction ACT 112: Negative or not required by law. Electronically signed by: Gómez Fried M.D. 01/07/2020 9:34 AM
--- NOTE | 2020-01-07 09:36 | Critical Care Progress Note ---
Date of Service January 07, 2020 Assessment & Plan (1) Acute respiratory failure with hypoxia: Patient continues to be mechanically ventilated and intubated. I have switched her to pressure support with a pressure of 7/5. She appears more comfortable on pressure support. We will switch her back to an assisted mode of ventilation in the afternoon. Her mental status continues to preclude her from being able to be extubated. She continues to be profoundly encephalopathic. The etiology of her encephalopathy is likely multifactorial from hypoxic injury, Covid encephalopathy, delirium and potential drug withdrawal. She is on high- dose thiamine which would be day 2. She is also on gabapentin. I have started her on quetiapine 25 mg twice daily. We are continuing her venlafaxine 37.5 mg twice daily. We will get an EKG tomorrow morning. EEG did not demonstrate any epileptiform activity. She continues to demonstrate high-grade fevers likely related to Covid pneumonitis. Lumbar puncture with unlikely change our plan at this time. We have stopped the azithromycin and she has completed 5 days. Her procalcitonin level has been negative. I doubt that she has bacterial meningitis. We may need to obtain an MRI of her brain in the near future which may prove difficult given her COVID-19 infection and altered mental status/agitation. We are starting her on scheduled oxycodone and as needed Ativan 2 mg every 4 hours. We are going to try to wean down her propofol and fe ntanyl. She did have green-tinged urine yesterday which may have been an early sign of propofol related infusion syndrome. She also had an elevated triglyceride count. We are trying to wean down the propofol and we will go down on the goal for tube feeds to reduce her lipid intake. She is to continue a full course of Decadron which would be 10 days. We are replenishing electrolytes as needed. Continue Lovenox 40 mg twice daily for DVT prophylaxis. She is also having an ongoing sinus tachycardia and we started her on 12.5 mg 3 times daily metoprolol tartrate. I suspect this is probably mediated by her sepsis and possibly withdrawal. Patient was discussed on multidisciplinary rounds. CRITICAL CARE TIME - I have personally spent 47 minutes of critical care time in the direct manage ment of this patient. This is a life/limb threatening event. This includes time spent evaluating patient, direct bedside care, chart review, placing orders, interpretation of diagnostic studies, discussion with consultants, patient, and family members, as well as other required patient management activities. This time is exclusive of all separately billable procedures, and teaching time and separate from and in addition to any other critical care service time. (2) Acute encephalopathy: (3) COVID-19: (4) Obesity (BMI 30-39.9): (5) SIMIN (obstructive sleep apnea): Admission and Anticipated Discharge Date Admission Date: January 02, 2020 Subjective Patient continues to be intubated and sedated. She continues to be encephalopathic and is not following commands. Review of Systems Review of Systems: Unobtainable due to endotracheal tube and Unobtainable due to reduced consciousness Physical Exam Constitutional: WD/WN, vitals as above + ill appearing Eyes: PERRL, conjunctivae normal, anicteric sclerae ENMT: external ear and nose normal, oropharynx normal Neck: normal visual inspection Respiratory: normal respiratory effort and + tachypneic Auscultation: + diminished lung sounds Cardiovascular: RRR, no murmur, no edema Gastrointestinal (Abdomen): normal bowel sounds, soft, nontender, no hepatosplenomegaly Musculoskeletal: no cyanosis or clubbing, extremities motor strength 5/5 Skin: no rashes, warm and dry Neurologic: Roving eye movements. Unable to fully assess due to altered mental status and intubation. Psychiatric: Unable to assess due to intubation and altered mental status. She does not follow commands. Results & Data Results & Data ([facility]) Vital Signs (Past 12 Hours) Vital Signs Temp Pulse Resp Pulse Ox 01/07/20 08:50 22 01/07/20 08:40 127 H 24 93 01/07/20 07:00 103.5 F H 140 H 93 01/07/20 03:24 104 H 23 94 01/06/20 23:15 100 H 28 H 92 I reviewed the vital signs, labs and imaging Coding Level of Care Code Critical Care 1st 30-74 mins Diagnoses Acute respiratory failure with hypoxia J96.01 Acute encephalopathy G93.40 COVID-19 U07.1 Obesity (BMI 30-39.9) E66.9 SIMIN (obstructive sleep apnea) G47.33 Time Spent (min) 47
--- NOTE | 2020-01-07 09:53 | XRay Report ---
XR KUB/Abdomen 1 view CLINICAL HISTORY: NGT placement/replaced. COMPARISON STUDY: 12/26/2019 FINDINGS: There has been interval advancement of the nasogastric tube. The tip now projects over the gastric antrum. IMPRESSION: The nasogastric tube has been advanced and is now positioned with its tip at the level t he gastric antrum ACT 112: Negative or not required by law. Electronically signed by: Gómez Fried M.D. 01/07/2020 9:52 AM
[2020-01-07] MEDS ORDERED: LORazepam 2 MG/4 ML VIAL IV PRN (10:00)
[2020-01-07] MEDS: PEPTAMEN INTENSE VHP 1.0 CAL 1,000 ML BAG OG SCH (10:26)
[2020-01-07] MEDS: PANTOprazole 40 MG in SYRINGE 0 ML IV SCH (12:22)
[2020-01-07] MEDS: oxyCODONE HCL SOLN 5 MG/5 ML UDC PO SCH ×2 (15:00→21:55)
--- NOTE | 2020-01-07 16:27 | Hospitalist Progress Note ---
Date of Service January 07, 2020 Assessment & Plan (1) Acute respiratory failure with hypoxia: (2) Pneumonia due to COVID-19 virus: Son recently ill with COVID-19. Patient was seen in outpatient clinic on 12/31/19. SARS-CoV-2 PCR ordered Patient presented to ED with fever, dyspnea, hypoxia, delirium on 01/01. EMS found her profoundly hypoxic in the field. Chest x-ray and CT demonstrated bilateral infiltrates consistent with COVID pneumonia. SARS-CoV-2 PCR in ED positive. Intubated in ED secondary to combativeness & acute respiratory failure and she was admitted to ICU Initiated remdesivir on dexamethasone, continued on intravenous ceftriaxone and doxycycline for possible superimposed bacterial pneumonia. (3) Acute metabolic encephalopathy: Acute metabolic encephalopathy [id number], pneumonia, respiratory failure, narcotic use-uses long acting morphine and oxycodone for breakthrough. Requiring Precedex and Geodon to control agitation Remains febrile (4) SIMIN (obstructive sleep apnea): Sleep apnea on BiPAP at home. Resume HS BiPAP after extubation. (5) Chronic narcotic use: Chronic neck and back pain treated with long acting morphine and percocet for breakthrough. Having withdrawal from narcotics requires continued sedation with Propofol. (6) Opiate withdrawal: She has been febrile and agitated recently and difficult to get off sedation and mechanical ventilation. She is intubated and requiring persistent sedation with her mental status precluding her from being able to be extubated. She continues to be profoundly encephalopathic with the etiology of encephalopathy likely multifactorial from hypoxic injury, Covid encephalopathy, delirium and potential drug withdrawal. She is on day 2 of high-dose thiamine, she is on gabapentin. I see see you has started her on Seroquel 25 mg twice daily and she is continued on venlafaxine 37.5 mg twice daily per home medications. She is also being started on scheduled oxycodone and as needed Ativan every 4 hours in order to wean her down off propofol and fentanyl. She notably had some green-tinged urine which may have been an early sign of propofol related infusion syndrome. She also had an elevated triglyceride count. (7) GERD (gastroesophageal reflux disease): Continue PPI. (8) Diabetes mellitus type 2, controlled: Remains on aspart per protocol and NPH 10 units scheduled daily. Inpatient glycemic pharmacist managing. Dexamethasone was administered this morning. Continue aggressive insulin administration to control blood sugar for now, and monitor p.o. intake. (9) DVT prophylaxis: Lovenox Full code Disposition-continues to remain in ICU and intubated. Vikki Grace DO [facility] Hospitalist Admission and Anticipated Discharge Date Admission Date: January 02, 2020 Subjective cc: covid and substance abuse withdrawal 44-year-old female presented to the ER with difficulty breathing and fever. Per EMS patient and her son both had symptoms of COVID-19. The patient had been tested at a [facility] urgent care for COVID-19 recently but did not have the results back. EMS reported the patient's oxygen saturation was in the 70s on arrival and she was confused and lethargic. She was intubated in the ER temperature was 38.5 heart rate was 124 blood pressure was 111/70. She was admitted to the critical care unit for acute respiratory failure with hypoxia and pneumonia due to COVID-19. She had been significantly combative prior to intubation and was on minimal vent settings and oxygenating well. Acute metabolic encephalopathy related to hypercarbic respiratory failure given the patient's history of severe sleep disordered breathing and potential hypoxemic encephalopathy given her Covid diagnosis was suspected. She was empirically placed on Rocephin and azithromycin for potential secondary bacterial pneumonia. Remdesivir and dexamethasone were initiated. Although seizure threshold was considered low probability and EEG was performed and neurology was consulted. There was moderately diffuse lady abnormal EEG findings consistent with a no nspecific nonfocal encephalopathy without potentially epileptogenic features. Neurology was able to ascertain there was no evidence for nonconvulsive seizure activity or status and no evidence of lateralizing features on EEG which would implicate a structural lesion. There were also reasons for her to be exhibiting current symptoms with her active COVID-19 infection and probable hypoxic encephalopathy building up prior to intubation. There also was a question of potential drug and alcohol use with the possibility of a withdrawal picture as she has been difficult to wean off ventilation. The patient is intubated and sedated and is unable to give a history or a ROS. Review of Systems Review of Systems: Unobtainable due to endotracheal tube Physical Exam Physical Exam: CONSTITUTIONAL: WNWD, vitals as above, intubated and sedated. EYES: pupils are equal and round bilaterally, normal conjunctivae, no scleral icterus ENT: external ear and nose normal, MMM, ETT in place, OG tube in place. RESPIRATORY: clear to auscultation bilaterally, no crackles, rales or wheezes, normal respiratory effort CARDIOVASCULAR: regular rate and rhythm, S1 and 2 heard without murmurs, gallops or rubs, no JVD, no peripheral edema, no carotid bruits GASTROINTESTINAL: soft, nontender, nondistended, no guarding MUSCULOSKELETAL: strength 5/5 throughout, head is normocephalic and atraumatic SKIN: warm and dry NEUROLOGIC: sedated, cannot assess. PSYCHIATRIC: alert but disoriented and not following commands, sedated, intubated. Results & Data Results & Data ([facility]) Vital Signs (Past 12 Hours) Vital Signs Temp Pulse Resp BP Pulse Ox 01/07/20 16:00 87 01/07/20 15:27 38.1 C H 92 H 102/73 92 01/07/20 14:27 38.2 C H 90 112/56 L 93 01/07/20 13:59 88 28 H 94 01/07/20 13:27 38.2 C H 88 102/72 92 01/07/20 12:36 92 H 14 92 01/07/20 12:27 38.3 C H 93 H 103/62 93 01/07/20 11:27 38.4 C H 98 H 96/58 L 92 01/07/20 10:27 38.5 C H 102 H 100/62 92 01/07/20 09:27 38.8 C H 113 H 99/59 L 92 01/07/20 08:50 22 01/07/20 08:40 127 H 24 93 01/07/20 08:27 39.3 C H 131 H 102/61 94 01/07/20 08:16 39.4 C H 133 H 115/61 94 01/07/20 08:00 113 H 01/07/20 07:27 39.8 C H 138 H 105/78 93 01/07/20 07:00 39.7 C H 140 H 93 Laboratory Results Short CBC 01/07/20 Range/Units 05:08 WBC 13.33 H (4.8-10.8) K/uL Hgb 10.8 L (12.0-16.0) g/dL Hct 33.4 L (37-47) % Plt Count 263 (130-400) K/uL BMP 01/06/20 01/07/20 20:47 05:08 Sodium 141 139 Potassium 3.8 3.7 Chloride 110 H 108 H Carbon Dioxide 26 27 BUN 18 19 H Creatinine 0.55 L 0.54 L Glucose 182 H 143 H Calcium 8.0 L 8.0 L Medications Administered Current Inpatient Medications Acetaminophen (Acetaminophen Susp 325 Mg/10.15 Ml Udc) 650 mg PO Q6H PRN PRN Reason: Fever Stop: 02/06/20 10:05 Enoxaparin Sodium (Enoxaparin Inj 40 Mg/0.4 Ml Syr) 40 mg SQ BID [facility] Stop: 02/01/20 20:59 Last Admin: 01/07/20 07:59 Dose: 40 mg Documented by: Fentanyl Citrate (Fentanyl Bolus From Bag) 50 mcg IV Q60M PRN PRN Reason: Pain or Agitation Stop: 01/16/20 15:14 Last Admin: 01/07/20 07:02 Dose: 50 mcg Documented by: Folic Acid (Folic Acid 1 Mg Tab) 1 mg PO QAM [facility] Stop: 02/05/20 09:29 Last Admin: 01/07/20 07:57 Dose: 1 mg Documented by: Gabapentin (Gabapentin 250 Mg/5 Ml 470 Ml Btl) 900 mg PO TID [facility] Stop: 02/04/20 13:59 Last Admin: 01/07/20 14:57 Dose: 900 mg Documented by: Fentanyl Citrate (Fentanyl Drip) 1,250 mcg in 250 mls @ 15 mls/hr IV .[id number] [facility]; Protocol Stop: 01/16/20 15:14 Last Titration: 01/07/20 13:01 Dose: 75 mcg/hr, 15 mls/hr Documented by: Pantoprazole Sodium 40 mg/ (Syringe) 10 mls @ 5 mls/min IV DAILY@1100 [facility] Stop: 02/02/20 10:59 Last Admin: 01/07/20 12:22 Dose: 5 mls/min Documented by: Dexamethasone 6 mg/ Syringe 1.5 mls @ 1 mls/min IV QD@08 [facility] Stop: 02/02/20 07:59 Last Admin: 01/07/20 07:58 Dose: 1 mls/min Documented by: Propofol (Diprivan) 1,000 mg in 100 mls @ 13.905 mls/hr IV .Q7H12M [facility]; Protocol Stop: 01/08/20 17:59 Last Admin: 01/07/20 16:07 Dose: Not Given Documented by: Thiamine HCl 500 mg/ Sodium (Chloride) 55 mls @ 208 mls/hr IV TID [facility] Stop: 02/05/20 13:59 Last Infusion: 01/07/20 15:32 Dose: Infused Documented by: Lorazepam (Ativan) 2 mg in 4 mls @ 4 mls/min IV Q4H PRN PRN Reason: Agitation Stop: 02/06/20 09:59 Insulin Aspart (Insulin Aspart 100 Units/Ml 3 Ml Pen) 0 units SC Q4 [facility]; Protocol Stop: 02/04/20 15:59 Last Admin: 01/07/20 12:54 Dose: 18 units Documented by: Insulin Human NPH (Insulin Human Nph) 0 units SC DAILY@0800 [facility]; Protocol Stop: 02/03/20 07:59 Last Admin: 01/07/20 08:30 Dose: 27 units Documented by: Metoprolol Tartrate (Metoprolol Tartrate 25 Mg Tab) 12.5 mg PO TID [facility] Stop: 02/06/20 08:59 Last Admin: 01/07/20 14:57 Dose: 12.5 mg Documented by: Miscellaneous (Icu Electrolyte Replacement Protocol) 1 ea N/A BID@06,18 [facility]; Protocol Stop: 01/12/20 17:59 Last Admin: 01/07/20 08:36 Dose: 1 ea Documented by: Miscellaneous Information (Pharmacy Glycemic Mgmt Consult) 1 ea N/A UD PRN PRN Reason: Consult Stop: 02/01/20 17:04 Nutritional Formula (Peptamen Intense Vhp 1.0 Antonio 1,000 Ml Bag) 1,000 ml OG UD [facility]; Protocol Stop: 02/03/20 11:14 Last Admin: 01/07/20 10:26 Dose: 1,000 ml Documented by: Oxycodone HCl (Oxycodone Hcl Soln 5 Mg/5 Ml Ud) 5 mg PO Q8 [facility] Stop: 01/19/20 09:59 Last Admin: 01/07/20 15:00 Dose: 5 mg Documented by: Polyethylene Glycol (Polyethylene (Miralax) 17 Gm Pack) 17 gm PO DAILY PRN PRN Reason: Constipation Stop: 02/04/20 10:15 Last Admin: 01/07/20 08:58 Dose: 17 gm Documented by: Propofol (Propofol Bolus From Bag) 20 mg IV Q5M PRN PRN Reason: Sedation Stop: 01/08/20 17:46 Last Admin: 01/07/20 07:02 Dose: 20 mg Documented by: Quetiapine Fumarate (Quetiapine Fumarate 25 Mg Tablet) 25 mg PO BID [facility] Stop: 02/06/20 08:59 Last Admin: 01/07/20 08:49 Dose: 25 mg Documented by: Senna/Docusate Sodium (Docusate Sodium/Senna 50/8.6mg Tab) 1 tab PO QAM [facility] Stop: 02/04/20 10:14 Last Admin: 01/07/20 08:58 Dose: 1 tab Documented by: Venlafaxine HCl (Venlafaxine Hcl 37.5 Mg Tab) 37.5 mg PO BID [facility] Stop: 02/04/20 20:59 Last Admin: 01/07/20 07:59 Dose: 37.5 mg Documented by:
--- NOTE | 2020-01-07 23:28 | Procedure Note ---
Procedure Note Date of Service January 07, 2020 Procedure: Fpc Indwelling Peripherally Inserted IV Catheter Placement Attending: Dr. Espinal APC: José Miguel Lund PA-C Indication: Need for IV Access, Poor Vascular Access Anesthesia: None Consent implied in the setting of poor peripheral access and need for multiple medications in the intubated/sedated patient. A time-out was completed verifying correct patient, procedure, site, positioning, and implant(s) or special equipment if applicable. Utilizing bedside ultrasound, vascularity of the LEFT upper extremity was assessed. Vessel size was noted for appropriate catheter selection and skin was marked with gentle pressure. Patients LEFT upper extremity was prepped and draped in the usual sterile fashion utilizing chlorhexidine. Ultrasound guidance was used to aid needle placement. A 18 g Endurance Catheter was introduced into the LEFT cephalic vein under direct ultrasound guidance. Guide wire was easily deployed without resistance. Catheter was threaded over the guide wire without resistance and the entire apparatus was removed intact. Good venous blood return was noted in the catheter. The IV catheter was easily flushed with sterile saline flush. Sterile clave was attached to the end of the catheter and good blood return was again noted. Tourniquet was released. StatLock device and sterile dressing were applied. The patient tolerated the procedure well. Blood Loss: Minimal Complications: None Procedural Ultrasound Guidance: Procedure Date: 01/07/2020 Indication: Poor Vascular Access Attending: Dr. Espinal APC: José Miguel Lund PA-C Artery/Veins Identified: YES Access confirmed in Vein with ultrasound: YES Complications: NONE Patient tolerated procedure: WELL Coding CPT Codes Tubes, Drains, and Vasc Access - Tubes, Drains, and Vasc Access: [id number] Venipuncture, Age 4/>Req phys skill, (sep proc), Dx/Tx (not rtn) ([id number]) [facility] Procedure Codes (Charges) Tubes, Drains, and Vasc Access Procedure 1: Tubes, Drains, and Vasc Access: [id number] Venipuncture, Age 4/>Req phys skill, (sep proc), Dx/Tx (not rtn)
[2020-01-08] MEDS: INSULIN ASPART 100 UNITS/ML 3 ML PEN SC SCH ×6 (02:07→21:02)
[2020-01-08] MEDS: propofoL 1,000 MG/100 ML VIAL IV SCH ×2 (04:45→07:28)
[2020-01-08 05:06] LABS: Basophils # (auto) 0.01 K/uL (0-0.2); Basophils % (auto) 0.1 %; Eosinophils # (auto) 0.18 K/uL (0-0.5); Eosinophils % (auto) 1.4 %; Hematocrit (blood only) 28.2 % (37-47); Hemoglobin 9.4 g/dL (12.0-16.0); Immature Granulocytes # (auto) 0.11 K/uL (0.00-0.02); Immature Granulocytes % (auto) 0.8 %; Lymphocytes # (auto) 1.88 K/uL (1.2-3.4); Lymphocytes % (auto) 14.5 %; Mean Corpuscular Hemoglobin 31.2 pg (25-34); Mean Corpuscular Hgb Conc 33.3 g/dL (32-36); Mean Corpuscular Volume 93.7 fL (80-100); Mean Platelet Volume 11.6 fL (7.4-10.4); Monocytes # (auto) 1.11 K/uL (0.11-0.59); Monocytes % (auto) 8.6 %; Neutrophils # (auto) 9.66 K/uL (1.4-6.5); Neutrophils % (auto) 74.6 %; Platelet Count 219 K/uL (130-400); RDW Coefficient of Variation 14.3 % (11.5-14.5); RDW Standard Deviation 48.9 fL (36.4-46.3); Red Blood Count 3.01 M/uL (4.2-5.4); White Blood Count 12.95 K/uL (4.8-10.8)
[2020-01-08] MEDS: oxyCODONE HCL SOLN 5 MG/5 ML UDC PO SCH ×3 (05:39→21:09)
[2020-01-08 06:03] LABS: iSTAT Allen Test Pass; iSTAT Art Bld Gas pCO2 Correct 41 mmHg (35-46); iSTAT Art Bld Gas pH Corrected 7.422 (7.35-7.45); iSTAT Arterial Blood Gas HCO3 27 meg/L (19-24); iSTAT Arterial Blood Gas pCO2 40 mmHg (35-46); iSTAT Arterial Blood Gas pH 7.44 (7.35-7.45); iSTAT Arterial Blood Gas pO2 59 mmHg (80-95); iSTAT Arterial Blood Gas pO2 C 63; iSTAT Carbon Dioxide 28 mmol/L (24-31); iSTAT FiO2 35 %; iSTAT Hematocrit 29 % (37-47); iSTAT Hemoglobin 9.9 g/dl (12.0-16.0); iSTAT Potassium 3.9 mmol/L (3.3-5.0); iSTAT Site R Radial; iSTAT Sodium 140 mmol/L (135-144)
[2020-01-08 06:14] LABS: Alanine Aminotransferase 39 U/L (12-78); Albumin Level 1.8 gm/dl (3.4-5.0); Alkaline Phosphatase 82 U/L (45-117); BUN Creatinine Ratio 46.8 (10-20); Bilirubin,Total 0.5 mg/dl (0.2-1); Blood Urea Nitrogen 21 mg/dl (7-18); Calcium 7.1 mg/dl (8.5-10.1); Carbon Dioxide 30 mmol/L (21-32); Chloride 104 mmol/L (98-107); Creatinine Clr Calc Pharmacy 176.7 ml/min; Est GFR (African American) 143.3; Est GFR (Non-African American) 123.6; Lipase 138 U/L (73-393); Total Protein 5.2 gm/dl (6.4-8.2); Triglycerides 1246 mg/dl (0-150)
[2020-01-08 06:15] LABS: Phosphorus 2.8 mg/dl (2.5-4.9)
[2020-01-08 06:38] LABS: Glucose 102 mg/dl (70-99); Potassium 3.9 mmol/L (3.5-5.1); Sodium 139 mmol/L (136-145)
[2020-01-08 06:39] LABS: Aspartate Aminotransferase 34 U/L (15-37); Bilirubin Direct < 0.1 mg/dl (0-0.2)
[2020-01-08] MEDS ORDERED: GLUCAGON FOR INJ 1 MG VIAL IM PRN (07:00)
[2020-01-08] MEDS ORDERED: CARBOHYDRATES FOR HYPOGLYCEMIA PO PRN (07:00)
[2020-01-08] MEDS ORDERED: DEXTROSE 50% 50 ML SYRINGE IV PRN (07:00)
[2020-01-08] MEDS ORDERED: GLUCOSE 40% GEL 15 GM TUBE PO PRN (07:00)
[2020-01-08] MEDS ORDERED: GLUCOSE 10 TABS/TUBE PO PRN (07:00)
[2020-01-08] MEDS: ICU ELECTROLYTE REPLACEMENT PROTOCOL SCH ×2 (07:34→18:46)
[2020-01-08] MEDS: FOLIC ACID 1 MG TAB PO SCH (07:41)
[2020-01-08] MEDS: METOPROLOL TARTRATE 25 MG TAB PO SCH ×3 (07:41→21:03)
[2020-01-08] MEDS: VENLAFAXINE HCL 37.5 MG TAB PO SCH ×2 (07:42→21:03)
[2020-01-08] MEDS: QUEtiapine FUMARATE 25 MG TABLET PO SCH ×2 (07:42→21:03)
[2020-01-08] MEDS: ENOXAPARIN INJ 40 MG/0.4 ML SYR SQ SCH ×2 (07:42→21:04)
[2020-01-08] MEDS ORDERED: STAT IV Infusion **Titration per Protocol STA (07:47)
[2020-01-08] MEDS: MAGNESIUM SULFATE / D5W 1 GM/100 ML BAG IV SCH ×2 (07:48→10:20)
[2020-01-08] MEDS: DOCUSATE SODIUM/SENNA 50/8.6MG TAB PO SCH (07:48)
[2020-01-08] MEDS: GABAPENTIN 250 MG/5 ML 470 ML BTL PO SCH ×3 (07:48→21:09)
[2020-01-08] MEDS: POLYETHYLENE (MIRALAX) 17 GM PACK PO PRN (07:49)
[2020-01-08] MEDS: dexAMETHasone 6 MG in SYRINGE 0 ML IV SCH (07:50)
[2020-01-08] MEDS: POTASSIUM CHLORIDE 20 MEQ/15 ML UDC NG SCH ×2 (07:50→14:47)
[2020-01-08] MEDS: THIAMINE HCL 500 MG in SODIUM CHLORIDE 0.9% 50 ML IV SCH ×2 (07:51→15:29)
--- NOTE | 2020-01-08 07:53 | Critical Care Progress Note ---
Date of Service January 08, 2020 Assessment & Plan (1) Acute respiratory failure with hypoxia: The patient is currently on propofol and fentanyl. She is much more awake and alert today. She is following commands. We are going to try to wean her propofol off entirely along with her fentanyl. I have ordered for Precedex to be available for agitation. We are continuing 2 mg IV Ativan every 4 hours, gabapentin 900 mg 3 times daily, oxycodone 5 mg 3 times daily and today is day 3 of high-dose thiamine. She is also on her home dose of venlafaxine. I started her on Seroquel 25 mg twice daily yesterday. She is requiring minimal vent support. She is in fact on pressure support today 08/09. We will do a cuff leak test and she continues to do well from a mental status standpoint, we will go ahead and extubate her to BiPAP. She has completed a course of a azithromycin. She has completed her remdesivir. We will continue 10 days total of Decadron. Continue DVT prophylaxis with Lovenox 40 mg twice daily. We will hold the tube feeds prior to extubation. Continue electrolyte replacement per the protocol. She is to remain in the ICU today. Patient was discussed on multidisciplinary rounds. CRITICAL CARE TIME - I have personally spent 44 minutes of critical care time in the direct management of this patient. This is a life/limb threatening event. This includes time spent evaluating patient, direct bedside care, chart review, placing orders, interpretation of diagnostic studies, discussion with consultants, patient, and family members, as well as other required patient management activities. This time is exclusive of all separately billable procedures, and teaching time and separate from and in addition to any other critical care service time. (2) Acute encephalopathy: (3) COVID-19: (4) Obesity (BMI 30-39.9): (5) SIMIN (obstructive sleep apnea): Admission and Anticipated Discharge Date Admission Date: January 02, 2020 Subjective Patient is much more alert and awake today. She remains on propofol and fentanyl infusions. She is following commands and making eye contact. No significant issues overnight per nursing. Glucose is better controlled. She did not require the insulin drip. Review of Systems Review of Systems: Unobtainable due to endotracheal tube Physical Exam Constitutional: WD/WN, vitals as above Eyes: PERRL, conjunctivae normal, anicteric sclerae ENMT: external ear and nose normal, oropharynx normal Neck: normal visual inspection Respiratory: normal respiratory effort, lungs clear to auscultation Cardiovascular: RRR, no murmur, no edema Gastrointestinal (Abdomen): normal bowel sounds, soft, nontender, no hepatosplenomegaly Musculoskeletal: no cyanosis or clubbing, extremities motor strength 5/5 Skin: no rashes, warm and dry Neurologic: Neurological exam is limited secondary to intubation status, however, she is following commands. Psychiatric: Orientation: alert Eye Contact: good eye contact Results & Data Results & Data ([facility]) Vital Signs (Past 12 Hours) Vital Signs Temp Pulse Resp BP Pulse Ox 01/08/20 07:28 100.0 F H 86 116/75 93 01/08/20 05:40 93 H 25 H 94 01/08/20 03:10 75 20 95 01/07/20 23:10 81 22 92 01/07/20 19:57 88 25 H 97 I reviewed the vital signs, labs and imaging Coding Level of Care Code Critical Care 1st 30-74 mins Diagnoses Acute respiratory failure with hypoxia J96.01 Acute encephalopathy G93.40 COVID-19 U07.1 Obesity (BMI 30-39.9) E66.9 SIMIN (obstructive sleep apnea) G47.33 Time Spent (min) 44
[2020-01-08] MEDS ORDERED: DEXMEDETOMIDINE HCL 200 MCG in SODIUM CHLORIDE 0.9% 48 ML IV SCH (08:00)
[2020-01-08] MEDS ORDERED: INSULIN HUMAN NPH SC SCH (08:00)
[2020-01-08] MEDS ORDERED: Nursing to Pharmacy Communication SCH (09:30)
[2020-01-08] MEDS: PANTOprazole 40 MG in SYRINGE 0 ML IV SCH (10:21)
[2020-01-08] MEDS: DEXMEDETOMIDINE HCL 400 MCG in 0.9 % SODIUM CHLORIDE 96 ML IV SCH ×3 (11:03→21:01)
--- NOTE | 2020-01-08 13:01 | Electrocardiogram Report ---
Test Reason : Blood Pressure : / mmHG Vent. Rate : 089 BPM Atrial Rate : 089 BPM P-R Int : 122 ms QRS Dur : 080 ms QT Int : 352 ms P-R-T Axes : 048 028 014 degrees QTc Int : 428 ms Poor data quality, interpretation may be adversely affected Normal sinus rhythm Low voltage QRS Borderline ECG When compared with ECG of 05-JAN-2020 09:02, No significant change was found Confirmed by Andreas Gilliland ([id number]) on 01/08/2020 1:01:08 PM Referred By: REFERRED SELF Confirmed By:Orlando Gilliland
[2020-01-08] MEDS ORDERED: LORazepam 2 MG/4 ML VIAL IV PRN (14:45)
[2020-01-08] MEDS ORDERED: VANCOMYCIN CONSULT ACTIVE PRN (15:25)
[2020-01-08] MEDS: POTASSIUM CHLORIDE / WTR 10 MEQ/100 ML PLCT IV SCH ×2 (15:29→17:59)
[2020-01-08] MEDS ORDERED: SODIUM CHLORIDE 0.9% IV ONE (16:00)
[2020-01-08] MEDS ORDERED: VANCOMYCIN HCL IV ONE (16:00)
--- NOTE | 2020-01-08 16:01 | Pharmacy Report ---
Pharmacy Abx Initial Consult - Date of Service January 08, 2020 - Pharmacy Dosing Scope Date of Consult: 01/08/20 Consultation requested by: Dr. Ramirez Pharmacy is consulted to initiate IV Vancomycin dosing therapy, order appropriate labs and adjust drug dose/frequency. - Subjective The patient is a 44 year old F admitted on 01/02/20 14:12 for Covid Pnx, previously intubated. Has continued with fevers, despite negative MRSA swab from 01/01 her sputum resulted a Staph Aureus today. Will empirically treat with Vancomycin and re-check MRSA nasal. ICU pharmacist involved with initiation of Vancomycin by Dr. Ramirez, noted this may be MSSA. Will institute AUC protocol for dosing of Vancomycin. - Objective Height: 5 ft 2 in Weight: 90.4 kg Vital Signs (Past 12hrs): Vital Signs Temp Pulse Resp BP Pulse Ox 01/08/20 13:28 38.1 C H 73 17 123/88 94 01/08/20 12:28 38.0 C H 75 18 118/90 95 01/08/20 11:28 37.9 C H 76 22 124/80 90 01/08/20 10:28 37.8 C H 83 33 H 122/89 91 01/08/20 09:28 37.8 C H 86 21 128/74 92 01/08/20 08:28 37.6 C H 95 H 121/77 95 01/08/20 08:06 95 H 16 94 01/08/20 08:00 82 01/08/20 07:28 37.8 C H 86 116/75 93 01/08/20 05:40 93 H 25 H 94 Lab Results (24hrs): Laboratory Tests (24 Hours) 01/08/20 01/08/20 04:57 04:57 WBC 12.95 H Neut # (Auto) 9.66 H Creatinine 0.44 L Est Cr Clr Drug Dosing 176.7 Micro Results: 01/06/20 09:47 Gram Stain - Final Sputum,Vent Suction 01/02/20 10:20 Aerobic Blood Culture - Final Blood No growth in Aerobic bottle after 5 days. Anaerobic Blood Culture - Final No growth in Anaerobic bottle after 5 days. 01/02/20 10:25 Aerobic Blood Culture - Final Blood No growth in Aerobic bottle after 5 days. Anaerobic Blood Culture - Final 01/02/20 11:45 Urine Culture - Final Urine,Straight Cath No growth - less than 1,000 colonies/mL. 01/02/20 18:00 Gram Stain - Final Sputum,Vent Suction Sputum Culture - Final Light normal mis. - Risk Factors for Resistance * Current hospitalization > 5 days - Assessment & Plan Assessment 44 year old F with Covid Pnx Plan Vancomycin IV * Estimated PK Parameters: Vd 0.55 L/kg, Tu 0.104 hr-1, t1/2 6.7 hr * Loading dose: 2550 mg (~28 mg/kg) * Maintenance dose: 1500mg IV (~17 mg/kg) every 8 hours * Goal trough level : 15-20 mcg/mL * Trough level ordered prior to 0400 dose on 01/10/20 * AUC protocol used in dosing of Vancomycin Pharmacy will continue to follow and will adjust dose/frequency as necessary. Thank you.
[2020-01-08] MEDS: ACETAMINOPHEN SUSP 325 MG/10.15 ML UDC PO PRN (16:02)
[2020-01-08] MEDS ORDERED: LORazepam 0.5 MG TAB PO PRN (18:12)
--- NOTE | 2020-01-08 20:02 | Hospitalist Progress Note ---
Date of Service January 08, 2020 Assessment & Plan (1) Acute respiratory failure with hypoxia: (2) Pneumonia due to COVID-19 virus: Son recently ill with COVID-19. Patient was seen in outpatient clinic on 12/31/19. SARS-CoV-2 PCR ordered Patient presented to ED with fever, dyspnea, hypoxia, delirium on 01/01. EMS found her profoundly hypoxic in the field. Chest x-ray and CT demonstrated bilateral infiltrates consistent with COVID pneumonia. SARS-CoV-2 PCR in ED positive. Intubated in ED secondary to combativeness & acute respiratory failure and she was admitted to ICU Initiated remdesivir on dexamethasone, continued on intravenous ceftriaxone and doxycycline for possible superimposed bacterial pneumonia. (3) Acute metabolic encephalopathy: Acute metabolic encephalopathy [id number], pneumonia, respiratory failure, narcotic use-uses long acting morphine and oxycodone for breakthrough. Requiring Precedex and Geodon to control agitation Remains febrile (4) SIMIN (obstructive sleep apnea): Sleep apnea on BiPAP at home. Resume HS BiPAP after extubation. (5) Chronic narcotic use: Chronic neck and back pain treated with long acting morphine and percocet for breakthrough. Having withdrawal from narcotics requires a continued Precedex infusion. (6) Opiate withdrawal: She has been febrile and agitated recently and difficult to get off sedation and mechanical ventilation. She is currently extubated and following commands. She is on Precedex to help with agitation in addition to 2 mg IV Ativan every 4 hours, and gabapentin 900 mg 3 times daily, oxycodone 5 mg 3 times daily. She is also receiving her home dose of venlafaxine and was started on Seroquel 25 mg twice daily on 01/06. (7) GERD (gastroesophageal reflux disease): Continue PPI. (8) Diabetes mellitus type 2, controlled: Remains on aspart per protocol and NPH 10 units scheduled daily. Inpatient glycemic pharmacist managing. Dexamethasone was administered this morning. Continue aggressive insulin administration to control blood sugar for now, and monitor p.o. intake. (9) DVT prophylaxis: Lovenox Full code Disposition-continues to remain in ICU, recently extubated DO [facility] Hospitalist Admission and Anticipated Discharge Date Admission Date: January 02, 2020 Subjective cc: covid and substance abuse withdrawal 44-year-old female presented to the ER with difficulty breathing and fever. Per EMS patient and her son both had symptoms of COVID-19. The patient had been tested at a [facility] urgent care for COVID-19 recently but did not have the results back. EMS reported the patient's oxygen saturation was in the 70s on arrival and she was confused and lethargic. She was intubated in the ER temperature was 38.5 heart rate was 124 blood pressure was 111/70. She was admitted to the critical care unit for acute respiratory failure with hypoxia and pneumonia due to COVID-19. She had been significantly combative prior to intubation and was on minimal vent settings and oxygenating well. Acute metabolic encephalopathy related to hypercarbic respiratory failure given the patient's history of severe sleep disordered breathing and potential hypoxemic encephalopathy given her Covid diagnosis was suspected. She was empirically placed on Rocephin and azithromycin for potential secondary bacterial pneumonia. Remdesivir and dexamethasone were initiated. Although seizure threshold was considered low probability and EEG was performed and neurology was consulted. There was moderately diffuse lady abnormal EEG findings consistent with a nonspecific nonfocal encephalopathy without potentially epileptogenic features. Neurology was able to ascertain there was no evidence for nonconvulsive seizure activity or status and no evidence of lateralizing features on EEG which would implicate a structural lesion. There were also reasons for her to be exhibiting current symptoms with her active COVID-19 infection and probable hypoxic encephalopathy building up prior to intubation. There also was a question of potential drug and alcohol use with the possibility of a withdrawal picture as she has been difficult to wean off ventilation. The patient has been extubated but is still on minimal Precedex infusion. Patient denies any generalized pain but does report pain in her left upper arm at her IV site. She denies any history of drug use or alcohol use. She denies any use of tobacco. History is limited as patient is on Precedex Review of Systems Review of Systems: All systems reviewed & are unremarkable except as noted in Subjective Physical Exam Physical Exam: CONSTITUTIONAL: WNWD, vitals as above, NAD EYES: pupils are equal and round bilaterally, normal conjunctivae, no scleral icterus ENT: external ear and nose normal, MMM RESPIRATORY: clear to auscultation bilaterally, no crackles, rales or wheezes, normal respiratory effort CARDIOVASCULAR: regular rate and rhythm, S1 and 2 heard without murmurs, gallops or rubs, no JVD, no peripheral edema GASTROINTESTINAL: soft, nontender, nondistended, no guarding MUSCULOSKELETAL: Moves all extremities equally, she is restrained on her upper extremities so exam is limited. Head is normocephalic and atraumatic SKIN: warm and dry NEUROLOGIC: Patient is sedated with Precedex of this exam is limited but she is able to talk to me with no evidence of cranial nerve deficit that is grossly present. And she is moving extremities equally. Results & Data Results & Data ([facility]) Vital Signs (Past 12 Hours) Vital Signs Temp Pulse Resp BP Pulse Ox 01/08/20 18:29 38.0 C H 64 23 95 01/08/20 17:29 38.2 C H 60 19 98 01/08/20 15:28 38.2 C H 67 23 124/92 96 01/08/20 14:28 38.2 C H 68 21 127/72 94 01/08/20 13:28 38.1 C H 73 17 123/88 94 01/08/20 12:28 38.0 C H 75 18 118/90 95 01/08/20 11:28 37.9 C H 76 22 124/80 90 01/08/20 10:28 37.8 C H 83 33 H 122/89 91 01/08/20 09:28 37.8 C H 86 21 128/74 92 01/08/20 08:28 37.6 C H 95 H 121/77 95 01/08/20 08:06 95 H 16 94 Laboratory Results Short CBC 01/08/20 Range/Units 04:57 WBC 12.95 H (4.8-10.8) K/uL Hgb 9.4 L (12.0-16.0) g/dL Hct 28.2 L (37-47) % Plt Count 219 (130-400) K/uL BMP 01/08/20 04:57 Sodium 139 Potassium 3.9 Chloride 104 Carbon Dioxide 30 BUN 21 H Creatinine 0.44 L Glucose 102 H Calcium 7.1 L Liver Function 01/08/20 Range/Units 04:57 Total Bilirubin 0.5 (0.2-1) mg/dl Direct Bilirubin < 0.1 (0-0.2) mg/dl AST 34 (15-37) U/L ALT 39 (12-78) U/L Alkaline Phosphatase 82 (45-117) U/L Albumin 1.8 L (3.4-5.0) gm/dl Medications Administered Current Inpatient Medications Acetaminophen (Acetaminophen Susp 325 Mg/10.15 Ml Udc) 650 mg PO Q6H PRN PRN Reason: Fever Stop: 02/06/20 10:05 Last Admin: 01/08/20 16:02 Dose: 650 mg Documented by: Dextrose (Dextrose 50% 50 Ml Syringe) 25 - 50 ml IV UD PRN; Protocol PRN Reason: Hypoglycemia Protocol Stop: 02/07/20 06:59 Enoxaparin Sodium (Enoxaparin Inj 40 Mg/0.4 Ml Syr) 40 mg SQ BID [facility] Stop: 02/01/20 20:59 Last Admin: 01/08/20 07:42 Dose: 40 mg Documented by: Folic Acid (Folic Acid 1 Mg Tab) 1 mg PO QAM CELESTE Stop: 02/05/20 09:29 Last Admin: 01/08/20 07:41 Dose: 1 mg Documented by: Gabapentin (Gabapentin 250 Mg/5 Ml 470 Ml Btl) 900 mg PO TID [facility] Stop: 02/04/20 13:59 Last Admin: 01/08/20 16:01 Dose: 900 mg Documented by: Glucagon (Glucagon For Inj 1 Mg Vial) 1 mg IM UD PRN; Protocol PRN Reason: Hypoglycemia Protocol Stop: 02/07/20 06:59 Glucose (Glucose 40% Gel 15 Gm Tube) 15 - 30 gm PO UD PRN; Protocol PRN Reason: Hypoglycemia Protocol Stop: 02/07/20 06:59 Glucose (Glucose 10 Tabs/Tube) 4 - 8 tabs PO UD PRN; Protocol PRN Reason: Hypoglycemia Protocol Stop: 02/07/20 06:59 Pantoprazole Sodium 40 mg/ (Syringe) 10 mls @ 5 mls/min IV DAILY@1100 [facility] Stop: 02/02/20 10:59 Last Admin: 01/08/20 10:21 Dose: 5 mls/min Documented by: Dexmedetomidine HCl 400 mcg/ (Sodium Chloride) 100 mls @ 22.6 mls/hr IV .Q4H26M [facility]; Protocol Stop: 01/12/20 10:44 Last Admin: 01/08/20 15:30 Dose: 1 mcg/kg/hr, 22.6 mls/hr Documented by: Thiamine HCl 100 mg/ Syringe 10 mls @ 2 mls/min IV DAILY [facility] Stop: 02/08/20 08:59 Vancomycin HCl 1,500 mg/ (Sodium Chloride) 530 mls @ 200 mls/hr IV Q8H [facility] Stop: 01/16/20 03:59 Insulin Aspart (Insulin Aspart 100 Units/Ml 3 Ml Pen) 0 units SC Q4 [facility]; Protocol Stop: 02/04/20 15:59 Last Admin: 01/08/20 16:25 Dose: 7 units Documented by: Insulin Human NPH (Insulin Human Nph) 10 units SC DAILY@0800 [facility] Stop: 02/03/20 07:59 Lorazepam (Lorazepam 0.5 Mg Tab) 0.5 mg PO Q6H PRN PRN Reason: Anxiety Stop: 02/07/20 18:11 Metoprolol Tartrate (Metoprolol Tartrate 25 Mg Tab) 12.5 mg PO TID [facility] Stop: 02/06/20 08:59 Last Admin: 01/08/20 16:24 Dose: 12.5 mg Documented by: Miscellaneous (Icu Electrolyte Replacement Protocol) 1 ea N/A BID@06,18 [facility]; Protocol Stop: 01/12/20 17:59 Last Admin: 01/08/20 18:46 Dose: 1 ea Documented by: Miscellaneous (Carbohydrates For Hypoglycemia ) 15 - 30 gm PO UD PRN PRN Reason: Hypoglycemia Treatment Stop: 02/07/20 06:59 Miscellaneous Information (Pharmacy Glycemic Mgmt Consult) 1 ea N/A UD PRN PRN Reason: Consult Stop: 02/01/20 17:04 Miscellaneous Information (Vancomycin Consult Active) 1 ea N/A UD PRN PRN Reason: Consult Stop: 02/07/20 15:24 Oxycodone HCl (Oxycodone Hcl Soln 5 Mg/5 Ml Udc) 5 mg PO Q8 [facility] Stop: 01/19/20 09:59 Last Admin: 01/08/20 16:24 Dose: 5 mg Documented by: Polyethylene Glycol (Polyethylene (Miralax) 17 Gm Pack) 17 gm PO DAILY PRN PRN Reason: Constipation Stop: 02/04/20 10:15 Last Admin: 01/08/20 07:49 Dose: 17 gm Documented by: Quetiapine Fumarate (Quetiapine Fumarate 25 Mg Tablet) 25 mg PO BID [facility] Stop: 02/06/20 08:59 Last Admin: 01/08/20 07:42 Dose: 25 mg Documented by: Senna/Docusate Sodium (Docusate Sodium/Senna 50/8.6mg Tab) 1 tab PO QAM CELESTE Stop: 02/04/20 10:14 Last Admin: 01/08/20 07:48 Dose: 1 tab Documented by: Venlafaxine HCl (Venlafaxine Hcl 37.5 Mg Tab) 37.5 mg PO BID [facility] Stop: 02/04/20 20:59 Last Admin: 01/08/20 07:42 Dose: 37.5 mg Documented by:
[2020-01-08] MEDS ORDERED: ACETAMINOPHEN 325 MG TAB ONE (21:12)
[2020-01-08] MEDS ORDERED: ACETAMINOPHEN 325 MG TAB PO ONE (21:15)
[2020-01-09] MEDS: INSULIN ASPART 100 UNITS/ML 3 ML PEN SC SCH ×5 (00:18→21:56)
[2020-01-09] MEDS: DEXMEDETOMIDINE HCL 400 MCG in 0.9 % SODIUM CHLORIDE 96 ML IV SCH ×4 (01:27→07:23)
[2020-01-09] MEDS ORDERED: VANCOMYCIN HCL 1,500 MG in SODIUM CHLORIDE 0.9% 500 ML IV SCH (04:00)
[2020-01-09 05:24] LABS: Basophils # (auto) 0.01 K/uL (0-0.2); Basophils % (auto) 0.1 %; Eosinophils % (auto) 1.6 %; Hematocrit (blood only) 33.3 % (37-47); Hemoglobin 10.4 g/dL (12.0-16.0); Immature Granulocytes # (auto) 0.16 K/uL (0.00-0.02); Immature Granulocytes % (auto) 1.3 %; Lymphocytes # (auto) 2.35 K/uL (1.2-3.4); Mean Corpuscular Hemoglobin 28.6 pg (25-34); Mean Corpuscular Hgb Conc 31.2 g/dL (32-36); Mean Corpuscular Volume 91.5 fL (80-100); Monocytes % (auto) 7.3 %; Neutrophils # (auto) 8.72 K/uL (1.4-6.5); Neutrophils % (auto) 70.7 %; Platelet Count 223 K/uL (130-400); RDW Coefficient of Variation 13.7 % (11.5-14.5); Red Blood Count 3.64 M/uL (4.2-5.4); White Blood Count 12.34 K/uL (4.8-10.8)
[2020-01-09 05:50] LABS: BUN Creatinine Ratio 28.7 (10-20); Calcium 7.7 mg/dl (8.5-10.1); Creatinine Clr Calc Pharmacy 145.1 ml/min; Est GFR (African American) 135.6; Magnesium 2.2 mg/dl (1.8-2.4)
[2020-01-09 05:59] LABS: Phosphorus 2.2 mg/dl (2.5-4.9)
[2020-01-09] MEDS ORDERED: oxyCODONE HCL IR 5 MG TAB (IMMEDIATE RELEASE) PO SCH (06:00)
[2020-01-09] MEDS: ICU ELECTROLYTE REPLACEMENT PROTOCOL SCH (06:02)
[2020-01-09] MEDS ORDERED: SODIUM PHOSPHATE 3 MMOL/1 ML INFUSION IV STA (06:05)
[2020-01-09] MEDS ORDERED: SODIUM PHOSPHATE 15 MMOL in SODIUM CHLORIDE 0.9% 250 ML IV ONE (06:30)
[2020-01-09] MEDS: GABAPENTIN 300 MG CAP PO SCH ×3 (07:58→21:45)
[2020-01-09] MEDS: ENOXAPARIN INJ 40 MG/0.4 ML SYR SQ SCH ×2 (07:58→21:43)
[2020-01-09] MEDS: METOPROLOL TARTRATE 25 MG TAB PO SCH ×3 (07:59→21:43)
[2020-01-09] MEDS ORDERED: INSULIN HUMAN NPH SC SCH (08:00)
[2020-01-09] MEDS: FOLIC ACID 1 MG TAB PO SCH (08:00)
[2020-01-09] MEDS ORDERED: oxyCODONE HCL SOLN 5 MG/5 ML UDC PO PRN (08:00)
[2020-01-09] MEDS: QUEtiapine FUMARATE 25 MG TABLET PO SCH ×2 (08:00→21:46)
[2020-01-09] MEDS: ACETAMINOPHEN SUSP 325 MG/10.15 ML UDC PO PRN ×2 (08:55→15:38)
[2020-01-09] MEDS: VENLAFAXINE HCL XR 75 MG CAPXR PO SCH (08:55)
[2020-01-09] MEDS: THIAMINE HCL 100 MG TAB PO SCH (08:55)
[2020-01-09] MEDS: DOCUSATE SODIUM/SENNA 50/8.6MG TAB PO SCH (08:55)
[2020-01-09] MEDS: cefTRIAXone SODIUM 2,000 MG in DEXTROSE 5% 50 ML IV SCH (09:00)
[2020-01-09] MEDS ORDERED: THIAMINE HCL 100 MG in SYRINGE 9 ML IV SCH (09:00)
--- NOTE | 2020-01-09 09:55 | Critical Care Progress Note ---
Date of Service January 09, 2020 Assessment & Plan (1) Pneumonia due to COVID-19 virus: Patient was extubated yesterday. She is doing well with nasal cannula. She is growing staph in her sputum. She does MSSA. We will continue Rocephin for total of 7 days. I have changed her oxycodone to 5 mg every 6 as needed. I have also decreased her Ativan dose. She completed a course of remdesivir for COVID-19 infection. I have discontinued her Decadron. Precedex was discontinued as well. Continue venlafaxine, folic acid and thiamine. Continue Seroquel 25 mg twice daily for delirium and psychosis. We are continuing gabapentin 900 mg 3 times daily. She has made significant improvement in her mental status and respiratory status. Continue DVT prophylaxis with Lovenox 40 mg twice daily. I think she is stable to be transferred to the floor. (2) Obesity (BMI 30-39.9): (3) Respiratory failure: (4) Altered mental status: (5) Acute encephalopathy: Admission and Anticipated Discharge Date Admission Date: January 02, 2020 Review of Systems Review of Systems: All systems reviewed & are unremarkable except as noted in HPI & below Results & Data Results & Data ([facility]) Vital Signs (Past 12 Hours) Vital Signs Temp Pulse Resp BP Pulse Ox 01/09/20 02:29 100.2 F H 59 L 20 138/84 94 01/09/20 02:00 100.2 F H 60 17 96 01/09/20 01:28 100.2 F H 68 17 124/90 97 01/09/20 01:00 100.2 F H 63 22 98 01/09/20 00:28 100.2 F H 59 L 21 133/88 97 01/09/20 00:00 100.4 F H 59 L 22 98 01/08/20 23:28 100.4 F H 66 22 138/84 95 01/08/20 23:00 100.6 F H 63 20 98 01/08/20 22:28 100.8 F H 61 23 124/81 94 01/08/20 22:00 100.9 F H 64 27 H I reviewed the vitals signs, labs and imaging Coding Level of Care Code 27949 Subseq Hosp Care Lvl 3 Diagnoses Pneumonia due to COVID-19 virus U07.1; J12.89 Obesity (BMI 30-39.9) E66.9 Respiratory failure J96.01 Chronicity: acute Respiratory failure complication: hypoxia Altered mental status R41.82 Acute encephalopathy G93.40 (1) Respiratory failure Chronicity: acute Respiratory failure complication: hypoxia Qualified Code(s): J96.01 - Acute respiratory failure with hypoxia
[2020-01-09] MEDS: ONDANSETRON 4 MG OD TAB PO PRN (10:53)
--- NOTE | 2020-01-09 14:08 | Pharmacy Report ---
Pharmacy Glycemic Short Note 2 - Date of Service January 09, 2020 - Glycemic Short BSG Results (Last 24 hours): 01/08/20 01/08/20 01/09/20 15:41 19:51 00:18 Glucose POC Glucose 205 H 134 H 109 H 01/09/20 01/09/20 01/09/20 04:20 04:31 08:00 Glucose 103 H POC Glucose 124 H 120 H 01/09/20 11:50 Glucose POC Glucose 107 H OUTPATIENT ANTIDIABETIC REGIMEN: * n/a * A1c ~7.3% ASSESSMENT: 01/08 * Patient has been extubated, dexamethasone has been stopped. Currently ordered a T2DM/full liquid diet with limited intake * Received 10 units of NPH this morning, will discontinue this as patient no longer on dexamethasone. * BSGs currently within goal range 120 mg/dL, 107 mg/dL today. Will loosen CF/CR to weight based stress of 3 01/05 * Patient received 53 units of insulin yesterday * TF are now at goal. BSGs improving. Patient still hyperglycemic during the day yesterday and trend down overnight. * Tightened CF/CR to 11/08. Improvement in lunch BSG today. * Patient remains intubated with encephalopathy, continuing dexamethasone 6 mg. 01/04 * Patient received 50 units of insulin yesterday, 22 units of NPH * TF continue @ 30 ml/hr (half of goal rate)- BSGs initially elevated and then trend down overnight. Elevated again at lunch * Patient currently on regular insulin, will switch to novolog as checks are every 4 hours. Regular parameters were adjusted yesterday down to 01/10. Will tighten carb ratio with dinner. * Day #05/15 dexamethasone, continues on propofol, precedex, fentanyl- will titrate up NPH for steroid coverage 01/03 * Patient received total of 32 units of insulin yesterday, of which 18 were NPH to cover steroids * Fasting BSG 158 mg/dL - continue same NPH * Plan to start tube feedings today / adjusted to regular insulin Q4 hr checks - notified nurse to make sure they follow protocol text and cover carbs of tube feeds with insulin 01/02 * Patient admitted with COVID pneumonia, intubated in ER. Presenting with altered mental status and combative behavior. Continues on sedation this morning with propofol/fentanyl/versed * Receiving Remdesivir and dexamethasone. Type 2 diabetes listed on medical list, however no agents at home listed on med rec. A1c of 7.3%. * Received total of 39 units of insulin yesterday, of which 18 units were NPH to help cover steroids. Lower dosing of NPH chosen as patient is NPO. Continue same basal this AM as steroids continuing * MD notes suggest plan is to try and wean mechanical ventilation in next 24 hrs/consideration of tube feedings if unsuccessful PLAN FOR INPATIENT GLYCEMIC CONTROL: * Basal insulin * NPH 10 units x 1 this AM; hold tomorrow * Bolus insulin * NovoLog per scale ACHS or Q6hrs while NPO ---> Q4 hr checks * Goal Range: Low 110 mg/dL - High 140 mg/dL * Correction Factor: 20 mg/dL/unit * Nutritional / Prandial insulin per carb ratio of 1 unit per 6 grams CHO consumed PLAN FOR DISCHARGE: * tbd
[2020-01-09] MEDS ORDERED: ONDANSETRON INJ 2 MG/ML 2 ML VIAL IV PRN (15:23)
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
[2020-01-09] MEDS ORDERED: PROMETHAZINE HCL 25 MG TAB PO PRN (17:54)
[2020-01-09] MEDS: oxyCODONE HCL IR 5 MG TAB (IMMEDIATE RELEASE) PO PRN (21:48)
[2020-01-10] MEDS ORDERED: VANCOMYCIN TROUGH ONE (03:30)
[2020-01-10] MEDS: ONDANSETRON 4 MG OD TAB PO PRN ×2 (04:33→19:04)
[2020-01-10 04:37] LABS: Hematocrit (blood only) 34.6 % (37-47); Hemoglobin 10.6 g/dL (12.0-16.0); Mean Corpuscular Hemoglobin 28.7 pg (25-34); Mean Corpuscular Hgb Conc 30.6 g/dL (32-36); Mean Corpuscular Volume 93.8 fL (80-100); Mean Platelet Volume 11.5 fL (7.4-10.4); Platelet Count 288 K/uL (130-400); RDW Coefficient of Variation 13.9 % (11.5-14.5); RDW Standard Deviation 47.3 fL (36.4-46.3); Red Blood Count 3.69 M/uL (4.2-5.4); White Blood Count 9.57 K/uL (4.8-10.8)
[2020-01-10 04:58] LABS: Albumin Level 2.3 gm/dl (3.4-5.0); BUN Creatinine Ratio 18.1 (10-20); Calcium 7.8 mg/dl (8.5-10.1); Creatinine Clr Calc Pharmacy 139.6 ml/min; Est GFR (Non-African American) 115.6; Magnesium 2.5 mg/dl (1.8-2.4); Potassium 3.8 mmol/L (3.5-5.1)
[2020-01-10] MEDS ORDERED: LORazepam 0.5 MG TAB PO ONE (13:50)
[2020-01-10] MEDS ORDERED: LORazepam 0.5 MG TAB ONE (13:56)
[2020-01-10 17:16] LABS: Albumin Globulin Ratio 0.6 (0.9-2); Bilirubin,Total 0.4 mg/dl (0.2-1); C Reactive Protein 1.87 mg/dl (0-0.29); Globulin 3.8 gm/dl (2.5-4.0); Phosphorus 3.3 mg/dl (2.5-4.9); Total Protein 6.1 gm/dl (6.4-8.2)
[2020-01-10] MEDS ORDERED: LORazepam 0.5 MG TAB PO PRN (18:03)
--- NOTE | 2020-01-10 18:37 | Hospitalist Progress Note ---
Date of Service January 10, 2020 Assessment & Plan (1) Acute respiratory failure with hypoxia: O2 sats 72% on RA at home when EMS arrived. Intubated in ED. No apparent pulmonary emboli per CTA chest. Hypoxia secondary to COVID pneumonia. Extubated on 01/07 to Precedex and she refused BIPAP. Has h/o SIMIN with ?noncompliance with mask wearing/tolerance. Resolving on min oxygen supplementation via nasal canula. (2) Pneumonia due to COVID-19 virus: Patient was seen in outpatient clinic on 12/31/19 with respiratory symptoms. EMS found her profoundly hypoxic in the field when called. Patient presented to ED with fever, dyspnea, hypoxia, delirium on 01/01. Chest x-ray and CT demonstrated bilateral infiltrates consistent with COVID pneumonia. SARS-CoV-2 PCR in ED positive. Intubated in ED secondary to combativeness & acute respiratory failure and she was admitted to ICU Initiated remdesivir on dexamethasone, continued on intravenous ceftriaxone and azithro for possible superimposed bacterial pneumonia. Completed azithro and continues on ceftriaxone at this point. Now improved and currently oxygenating 94% on 2LPM (3) Acute metabolic encephalopathy: [id number], pneumonia, respiratory failure, narcotic use-uses long acting morphine and oxycodone for breakthrough. Required Precedex and Geodon to control agitation This has resolved and she is now mentating at baseline. She is afebrile and appears to be mostly through her opiate withdrawal aside from some mild nausea. Continue supportive care. (4) SIMIN (obstructive sleep apnea): Sleep apnea on BiPAP at home. Resume HS BiPAP (5) Chronic narcotic use: Chronic neck and back pain treated with long acting morphine and percocet for breakthrough. Underwent severe withdrawal from narcotics requiring prolonged sedation with Propofol. PRN oxycodone-would not restart her long acting morphine at this time. Also, with her high risk of addiction, would not continue her on any benzodiazepines senior living. Oxycodone PRN (6) Opiate withdrawal: She has been febrile and agitated while in the ICU and difficult to get off sedation and mechanical ventilation. She was intubated and required persistent sedation with her mental status prolonging her intubation. Etiology of encephalopathy was from multiple factors including hypoxic injury, Covid encephalopathy, delirium and opiate withdrawal. She continues on gabapentin and thiamine. She was started on Seroquel 25 mg twice daily vy in the ICU and she is continued on venlafaxine 37.5 mg twice daily per home medications. Cont oxycodone PRN (7) GERD (gastroesophageal reflux disease): Continue PPI. (8) Diabetes mellitus type 2, controlled: Remains on aspart per protocol and NPH 10 units scheduled daily. Inpatient glycemic pharmacist managing. Dexamethasone was administered this morning. Continue aggressive insulin administration to control blood sugar for now, and monitor p.o. intake (9) DVT prophylaxis: Lovenox Full code Disposition-uncertain aqt this time. Pending PT/OT recs and that she can reliably tolerate PO Vikki Grace DO [facility] Admission and Anticipated Discharge Date Admission Date: January 02, 2020 Subjective cc: acute respiratory failure 2/2 covid-19 and opiate withdrawal reports having a headache and "pain all over" reports having nausea prefers a clear liquid diet. ROS is limited because she doesn't feel well Review of Systems Review of Systems: Other (limited because she doesn't feel well) Physical Exam Physical Exam: CONSTITUTIONAL: obese, vitals as above, mildly ill appearing. EYES: normal conjunctivae, no scleral icterus ENT: external ear and nose normal, MMM RESPIRATORY: clear to auscultation bilaterally, no crackles, rales or wheezes, normal respiratory effort CARDIOVASCULAR: regular rate and rhythm, S1 and 2 heard without murmurs, gallops or rubs, no JVD, no peripheral edema GASTROINTESTINAL: soft, nontender, nondistended, no guarding MUSCULOSKELETAL: Moves all extremities equally. Head is normocephalic and atraumatic SKIN: warm and dry. Some ecchymosis seen on her forearms that is healing. NEUROLOGIC: CN 2-12 gross intact throughout, normal speech and cognition. She has no gross focal deficits at this time.
[2020-01-10] MEDS: INSULIN ASPART 100 UNITS/ML 3 ML PEN SC SCH ×3 (18:46→22:16)
[2020-01-10] MEDS: ENOXAPARIN INJ 40 MG/0.4 ML SYR SQ SCH ×2 (18:47→22:05)
[2020-01-10] MEDS: FOLIC ACID 1 MG TAB PO SCH (18:47)
[2020-01-10] MEDS: VENLAFAXINE HCL XR 75 MG CAPXR PO SCH (18:47)
[2020-01-10] MEDS: GABAPENTIN 300 MG CAP PO SCH ×3 (18:47→22:06)
[2020-01-10] MEDS: METOPROLOL TARTRATE 25 MG TAB PO SCH ×2 (18:47→22:06)
[2020-01-10] MEDS: DOCUSATE SODIUM/SENNA 50/8.6MG TAB PO SCH (18:48)
[2020-01-10] MEDS: CHOLECALCIFEROL 400 UNITS 10 MCG TAB PO SCH (18:48)
[2020-01-10] MEDS: THIAMINE HCL 100 MG TAB PO SCH (18:48)
[2020-01-10] MEDS: QUEtiapine FUMARATE 25 MG TABLET PO SCH ×2 (18:48→22:05)
[2020-01-10] MEDS: cefTRIAXone SODIUM 2,000 MG in DEXTROSE 5% 50 ML IV SCH (18:48)
[2020-01-10] MEDS: ACETAMINOPHEN 325 MG TAB PO PRN (19:04)
[2020-01-10] MEDS: oxyCODONE HCL IR 5 MG TAB (IMMEDIATE RELEASE) PO PRN (22:09)
[2020-01-11] MEDS: ACETAMINOPHEN 325 MG TAB PO PRN (04:42)
[2020-01-11] MEDS: oxyCODONE HCL IR 5 MG TAB (IMMEDIATE RELEASE) PO PRN ×3 (06:02→18:19)
[2020-01-11] MEDS ORDERED: ETOMIDATE 2 MG/ML 20 ML VIAL IV ONE (07:20)
[2020-01-11] MEDS ORDERED: ROCURONIUM BROMIDE 10 MG/ML 5 ML VIAL IV ONE (07:20)
--- NOTE | 2020-01-11 08:44 | Pharmacy Report ---
Pharmacy Glycemic Short Note 2 - Date of Service January 11, 2020 - Glycemic Short BSG Results (Last 24 hours): 01/10/20 01/10/20 01/10/20 11:31 16:21 20:34 POC Glucose 90 81 83 01/11/20 07:23 POC Glucose 92 OUTPATIENT ANTIDIABETIC REGIMEN: * n/a * A1c ~7.3% ASSESSMENT: 01/10: * BSGs yesterday of 101, 90, 81, and 83 mg/dL * Patient received no insulin yesterday * Patient's BSGs very well controlled without insulin since steroids have been discontinued * Patient has diet ordered, but appetite is very limited secondary to nausea * Hospitalist discontinued consult this afternoon. Pharmacy will sign off. 01/08: * Patient has been extubated, dexamethasone has been stopped. Currently ordered a T2DM/full liquid diet with limited intake * Received 10 units of NPH this morning, will discontinue this as patient no longer on dexamethasone. * BSGs currently within goal range 120 mg/dL, 107 mg/dL today. Will loosen CF/CR to weight based stress of 3 01/02 * Patient admitted with COVID pneumonia, intubated in ER. Presenting with altered mental status and combative behavior. Continues on sedation this morning with propofol/fentanyl/versed * Receiving Remdesivir and dexamethasone. Type 2 diabetes listed on medical list, however no agents at home listed on med rec. A1c of 7.3%. * Received total of 39 units of insulin yesterday, of which 18 units were NPH to help cover steroids. Lower dosing of NPH chosen as patient is NPO. Continue same basal this AM as steroids continuing * MD notes suggest plan is to try and wean mechanical ventilation in next 24 hrs/consideration of tube feedings if unsuccessful PLAN FOR INPATIENT GLYCEMIC CONTROL: * Basal insulin * discontinued * Bolus insulin * discontinued
[2020-01-11] MEDS: INSULIN ASPART 100 UNITS/ML 3 ML PEN SC SCH ×2 (09:57→12:30)
[2020-01-11] MEDS: FOLIC ACID 1 MG TAB PO SCH (09:58)
[2020-01-11] MEDS: CHOLECALCIFEROL 400 UNITS 10 MCG TAB PO SCH (09:59)
[2020-01-11] MEDS: METOPROLOL TARTRATE 25 MG TAB PO SCH ×3 (10:01→19:20)
[2020-01-11] MEDS: GABAPENTIN 300 MG CAP PO SCH ×3 (10:01→19:19)
[2020-01-11] MEDS: cefTRIAXone SODIUM 2,000 MG in DEXTROSE 5% 50 ML IV SCH (10:01)
[2020-01-11] MEDS: ENOXAPARIN INJ 40 MG/0.4 ML SYR SQ SCH ×2 (10:02→19:20)
[2020-01-11] MEDS: VENLAFAXINE HCL XR 75 MG CAPXR PO SCH (10:02)
[2020-01-11] MEDS: DOCUSATE SODIUM/SENNA 50/8.6MG TAB PO SCH (10:03)
[2020-01-11] MEDS: THIAMINE HCL 100 MG TAB PO SCH (10:03)
[2020-01-11] MEDS: QUEtiapine FUMARATE 25 MG TABLET PO SCH ×2 (10:03→19:20)
[2020-01-11] MEDS ORDERED: PROMETHAZINE HCL 25 MG TAB PO PRN (12:32)
--- NOTE | 2020-01-11 12:34 | Hospitalist Progress Note ---
Date of Service January 11, 2020 Assessment & Plan (1) Acute respiratory failure with hypoxia: O2 sats 72% on RA at home when EMS arrived. Intubated in ED. No apparent pulmonary emboli per CTA chest. Hypoxia secondary to COVID pneumonia. Extubated on 01/07 to Precedex and she refused BIPAP. Has h/o SIMIN with ?noncompliance with mask wearing/tolerance. Resolved as she is now on room air. (2) Pneumonia due to COVID-19 virus: Patient was seen in outpatient clinic on 12/31/19 with respiratory symptoms. EMS found her profoundly hypoxic in the field when called. Patient presented to ED with fever, dyspnea, hypoxia, delirium on 01/01. Chest x-ray and CT demonstrated bilateral infiltrates consistent with COVID pneumonia. SARS-CoV-2 PCR in ED positive. Intubated in ED secondary to combativeness & acute respiratory failure and she was admitted to ICU Received course of remdesivir and dexamethasone, Received 5 day course of azithromycin and continues on Rocephin for MSSA in sputum for total 7 days. Now improved and currently oxygenating well on room air. (3) Acute metabolic encephalopathy: [id number], pneumonia, respiratory failure, narcotic use-uses long acting morphine and oxycodone for breakthrough. Required Precedex and Geodon to control agitation This has resolved and she is now mentating at baseline. She is afebrile and appears to be mostly through her opiate withdrawal aside from some mild nausea. Continue supportive care. (4) SIMIN (obstructive sleep apnea): Sleep apnea on BiPAP at home. Resume HS BiPAP as tolerated. (5) Chronic narcotic use: Chronic neck and back pain treated with long acting morphine and percocet for breakthrough. Underwent severe withdrawal from narcotics requiring prolonged sedation with Propofol. PRN oxycodone-would not restart her long acting morphine at this time. Also, with her high risk of addiction, would not continue her on any benzodiazepines longterm. Oxycodone PRN (6) Opiate withdrawal: She has been febrile and agitated while in the ICU and difficult to get off sedation and mechanical ventilation. She was intubated and required persistent sedation with her mental status prolonging her intubation. Etiology of encephalopathy was from multiple factors including hypoxic injury, Covid encephalopathy, delirium and opiate withdrawal. She continues on gabapentin and thiamine. She was started on Seroquel 25 mg twice daily wile in the ICU and she is continued on venlafaxine 37.5 mg twice daily per home medications. Cont oxycodone PRN (7) GERD (gastroesophageal reflux disease): Continue PPI. (8) Diabetes mellitus type 2, controlled: Diet controlled diabetic with an A1C 7.3. She has consistently not required any insulin coverage here. Will stop BSG and insulin coverage at this time. (9) DVT prophylaxis: Lovenox Full code Disposition-ok to go home when reliably tolerating food and feeling better. Vikki Grace DO [facility] Hospitalist Admission and Anticipated Discharge Date Admission Date: January 02, 2020 Subjective cc: acute respiratory failure 2/2 covid-19 and opiate withdrawal severe nausea today cannot tolerate PO having BMs ambulating independently per nurse no pain reported per patient "I just want to feel better" Review of Systems Review of Systems: All systems reviewed & are unremarkable except as noted in Subjective Physical Exam Physical Exam: CONSTITUTIONAL: obese, vitals as above, mildly ill appearing. EYES: normal conjunctivae, no scleral icterus ENT: external ear and nose normal, MMM RESPIRATORY: clear to auscultation bilaterally, no crackles, rales or wheezes, normal respiratory effort CARDIOVASCULAR: regular rate and rhythm, S1 and 2 heard without murmurs, gallops or rubs, no JVD, no peripheral edema GASTROINTESTINAL: soft, nontender, nondistended, no guarding MUSCULOSKELETAL: Moves all extremities equally. Head is normocephalic and atraumatic SKIN: warm and dry. Some ecchymosis seen on her forearms that is healing. NEUROLOGIC: CN 2-12 gross intact throughout, normal speech and cognition. She has no gross focal deficits at this time. Results & Data Results & Data ([facility]) Vital Signs (Past 12 Hours) Vital Signs Temp Pulse Pulse Pulse Resp BP BP 01/11/20 11:54 36.8 C 112 H 18 115/83 01/11/20 08:00 117 H 01/11/20 07:45 36.8 C 103 H 18 137/87 01/11/20 04:00 37.1 C 96 H 19 111/79 Pulse Ox 01/11/20 11:54 93 01/11/20 08:00 01/11/20 07:45 97 01/11/20 04:00 97 Laboratory Results Liver Function 01/10/20 Range/Units 03:31 Total Bilirubin 0.4 (0.2-1) mg/dl Alkaline Phosphatase 92 (45-117) U/L Medications Administered Current Inpatient Medications Acetaminophen (Acetaminophen 325 Mg Tab) 650 mg PO Q4H PRN PRN Reason: Pain or Fever Stop: 02/08/20 17:51 Last Admin: 01/11/20 04:42 Dose: 650 mg Documented by: Enoxaparin Sodium (Enoxaparin Inj 40 Mg/0.4 Ml Syr) 40 mg SQ BID [facility] Stop: 02/01/20 20:59 Last Admin: 01/11/20 10:02 Dose: 40 mg Documented by: Folic Acid (Folic Acid 1 Mg Tab) 1 mg PO QAM [facility] Stop: 02/05/20 09:29 Last Admin: 01/11/20 09:58 Dose: 1 mg Documented by: Gabapentin (Gabapentin 300 Mg Cap) 900 mg PO TID [facility] Stop: 02/08/20 08:59 Last Admin: 01/11/20 12:32 Dose: 900 mg Documented by: Ceftriaxone Sodium 2,000 mg/ (Dextrose) 70 mls @ 100 mls/hr IV DAILY [facility]; Protocol Stop: 01/16/20 08:59 Last Infusion: 01/11/20 10:48 Dose: Infused Documented by: Sodium Chloride (Nss 1000ml) 1,000 mls @ 250 mls/hr IV .Q4H [facility] Stop: 01/11/20 16:44 Lorazepam (Lorazepam 0.5 Mg Tab) 0.5 mg PO Q8H PRN PRN Reason: Anxiety Stop: 02/09/20 18:02 Last Admin: 01/10/20 22:08 Dose: 0.5 mg Documented by: Metoprolol Tartrate (Metoprolol Tartrate 25 Mg Tab) 12.5 mg PO TID [facility] Stop: 02/06/20 08:59 Last Admin: 01/11/20 12:32 Dose: 12.5 mg Documented by: Miscellaneous Information (Pharmacy Glycemic Mgmt Consult) 1 ea N/A UD PRN PRN Reason: Consult Stop: 02/01/20 17:04 Ondansetron HCl (Ondansetron 4 Mg Od Tab) 4 mg PO Q6H PRN PRN Reason: Nausea Stop: 02/08/20 09:05 Last Admin: 01/10/20 19:04 Dose: 4 mg Documented by: Ondansetron HCl (Ondansetron Inj 2 Mg/Ml 2 Ml Vial) 4 mg IV Q8H [facility] Stop: 02/10/20 12:44 Oxycodone HCl (Oxycodone Hcl Ir 5 Mg Tab (Immediate Release)) 5 mg PO Q6H PRN PRN Reason: Pain Stop: 01/23/20 17:52 Last Admin: 01/11/20 12:33 Dose: 5 mg Documented by: Polyethylene Glycol (Polyethylene (Miralax) 17 Gm Pack) 17 gm PO DAILY PRN PRN Reason: Constipation Stop: 02/04/20 10:15 Last Admin: 01/08/20 07:49 Dose: 17 gm Documented by: Promethazine HCl (Promethazine Hcl 25 Mg Tab) 25 mg PO Q6H PRN PRN Reason: Nausea And Vomiting Stop: 02/08/20 17:53 Promethazine HCl (Promethazine Hcl 25 Mg Tab) 25 mg PO Q6H PRN PRN Reason: Nausea And Vomiting Stop: 02/10/20 12:31 Quetiapine Fumarate (Quetiapine Fumarate 25 Mg Tablet) 25 mg PO BID [facility] Stop: 02/06/20 08:59 Last Admin: 01/11/20 10:03 Dose: 25 mg Documented by: Senna/Docusate Sodium (Docusate Sodium/Senna 50/8.6mg Tab) [facility] [place] Stop: 02/04/20 10:14 Last Admin: 01/11/20 10:03 Dose: Not Given Documented by: Thiamine HCl (Thiamine Hcl 100 Mg Tab) 100 mg PO DAILY [facility] Stop: 02/08/20 08:59 Last Admin: 01/11/20 10:03 Dose: 100 mg Documented by: Venlafaxine HCl (Venlafaxine Hcl Xr 75 Mg Capxr) 75 [facility] [place] Stop: 02/08/20 08:59 Last Admin: 01/11/20 10:02 Dose: 75 mg Documented by: Vitamin D (Cholecalciferol 400 Units 10 Mcg Tab) 400 [facility] [place] Stop: 02/09/20 08:59 Last Admin: 01/11/20 09:59 Dose: 400 units Documented by:
[2020-01-11] MEDS ORDERED: SODIUM CHLORIDE 0.9% 1000ML 1,000 ML IV SCH (12:45)
[2020-01-11] MEDS: ONDANSETRON INJ 2 MG/ML 2 ML VIAL IV SCH ×2 (14:39→22:21)
[2020-01-12] MEDS: ONDANSETRON INJ 2 MG/ML 2 ML VIAL IV SCH ×2 (05:36→13:44)
[2020-01-12] MEDS: cefTRIAXone SODIUM 2,000 MG in DEXTROSE 5% 50 ML IV SCH (08:30)
[2020-01-12] MEDS: FOLIC ACID 1 MG TAB PO SCH (09:18)
[2020-01-12] MEDS: GABAPENTIN 300 MG CAP PO SCH ×3 (09:18→19:50)
[2020-01-12] MEDS: METOPROLOL TARTRATE 25 MG TAB PO SCH ×3 (09:18→19:46)
[2020-01-12] MEDS: VENLAFAXINE HCL XR 75 MG CAPXR PO SCH (09:18)
[2020-01-12] MEDS: ENOXAPARIN INJ 40 MG/0.4 ML SYR SQ SCH ×2 (09:18→19:46)
[2020-01-12] MEDS: CHOLECALCIFEROL 400 UNITS 10 MCG TAB PO SCH (09:19)
[2020-01-12] MEDS: QUEtiapine FUMARATE 25 MG TABLET PO SCH ×2 (09:19→19:50)
[2020-01-12] MEDS: DOCUSATE SODIUM/SENNA 50/8.6MG TAB PO SCH (09:19)
[2020-01-12] MEDS: THIAMINE HCL 100 MG TAB PO SCH (09:19)
[2020-01-12] MEDS: ACETAMINOPHEN 325 MG TAB PO PRN (12:00)
--- NOTE | 2020-01-12 14:19 | Hospitalist Progress Note ---
Date of Service January 12, 2020 Assessment & Plan (1) Acute respiratory failure with hypoxia: O2 sats 72% on RA at home when EMS arrived. Intubated in ED. No apparent pulmonary emboli per CTA chest. Hypoxia secondary to COVID pneumonia. Extubated on 01/07 to Precedex and she refused BIPAP. Has h/o SIMIN with ?noncompliance with mask wearing/tolerance. Resolved as she is now on room air. (2) Pneumonia due to COVID-19 virus: Patient was seen in outpatient clinic on 12/31/19 with respiratory symptoms. EMS found her profoundly hypoxic in the field when called. Patient presented to ED with fever, dyspnea, hypoxia, delirium on 01/01. Chest x-ray and CT demonstrated bilateral infiltrates consistent with COVID pneumonia. SARS-CoV-2 PCR in ED positive. Intubated in ED secondary to combativeness & acute respiratory failure and she was admitted to ICU Received course of remdesivir and dexamethasone, Received 5 day course of azithromycin and continues on Rocephin for MSSA in sputum for total 7 days. Now improved and currently oxygenating well on room air. (3) Acute metabolic encephalopathy: [id number], pneumonia, respiratory failure, narcotic use-uses long acting morphine and oxycodone for breakthrough. Required Precedex and Geodon to control agitation This has resolved and she is now mentating at baseline. She is afebrile and appears to be mostly through her opiate withdrawal. Nausea appears more under control and she has some residual sinus tachycardia which is likely physiologic in response to persistent withdrawal, anxiety, or covid as some listed considerations. (4) SIMIN (obstructive sleep apnea): Sleep apnea on BiPAP at home. Resume HS BiPAP as tolerated. (5) Chronic narcotic use: Chronic neck and back pain treated with long acting morphine and percocet for breakthrough. Underwent severe withdrawal from narcotics requiring prolonged sedation with Propofol. PRN oxycodone-would not restart her long acting morphine at this time. Also, with her high risk of addiction, would not continue her on any benzodiazepines [facility]. Oxycodone PRN (6) Opiate withdrawal: She has been febrile and agitated while in the ICU and difficult to get off sedation and mechanical ventilation. She was intubated and required persistent sedation with her mental status prolonging her intubation. Etiology of encephalopathy was from multiple factors including hypoxic injury, Covid encephalopathy, delirium and opiate withdrawal. She continues on gabapentin and thiamine. She was started on Seroquel 25 mg twice daily wile in the ICU and she is continued on venlafaxine 37.5 mg twice daily per home medications. Cont oxycodone PRN. Would like to get mental health opinion on continuation of the seroquel, and also feel there is something off with her personality. Question if there may be some underlying psychiatric disorder that opiates may have been masking? Pt also clearly at high risk for depression and PTSD being recently addicted to narcotics and recently intubated in the ICU setting. Will consult psychiatry to assess and give some recommendations here. (7) GERD (gastroesophageal reflux disease): Continue PPI. (8) Diabetes mellitus type 2, controlled: Diet controlled diabetic with an A1C 7.3. She has consistently not required any insulin coverage here. No BSG or insulin coverage at this time. Follow up as outpatient. (9) DVT prophylaxis: Lovenox Full code Disposition-ok to go home when reliably tolerating food and feeling better. Possibly in the next 1-2 days. DO Tom [facility] Hospitalist Admission and Anticipated Discharge Date Admission Date: January 02, 2020 Subjective cc: acute respiratory failure 2/2 covid-19 and opiate withdrawal Patient states that her nausea has resolved and she is eating today nurse states patient still hasn't taken in much she was on scheduled Zofran today patient states she feels good and denies any pain --reports not wanting to be on narcotics or go back on them seems to be in a good head space. Nurse reports some questionable delirium today in conversations with her. Persistent tachycardia in the 100-120 range. nurse reports patient's son and mother both called in and told nurse to instruct me to restart her narcotics. i discussed this with patient, who was confused and refused narcotics. Review of Systems Review of Systems: All systems reviewed & are unremarkable except as noted in Subjective Physical Exam Physical Exam: CONSTITUTIONAL: obese, vitals as above, mildly ill appearing. EYES: normal conjunctivae, no scleral icterus ENT: external ear and nose normal, MMM RESPIRATORY: clear to auscultation bilaterally, no crackles, rales or wheezes, normal respiratory effort CARDIOVASCULAR: tachy rate and rhythm, S1 and 2 heard without murmurs, gallops or rubs, no JVD, no peripheral edema GASTROINTESTINAL: soft, nontender, nondistended, no guarding MUSCULOSKELETAL: Moves all extremities equally. Head is normocephalic and atraumatic SKIN: warm and dry. Some ecchymosis seen on her forearms that is healing. NEUROLOGIC: CN 2-12 gross intact throughout, normal speech and cognition. She has no gross focal deficits at this time. Results & Data Results & Data ([facility]) Vital Signs (Past 12 Hours) Vital Signs Temp Pulse Pulse Resp BP BP Pulse Ox 01/12/20 12:00 36.7 C 110 H 18 116/98 94 01/12/20 08:02 36.7 C 127 H 20 107/70 95 01/12/20 08:00 115 H Medications Administered Current Inpatient Medications Acetaminophen (Acetaminophen 325 Mg Tab) 650 mg PO Q4H PRN PRN Reason: Pain or Fever Stop: 02/08/20 17:51 Last Admin: 01/12/20 12:00 Dose: 650 mg Documented by: Enoxaparin Sodium (Enoxaparin Inj 40 Mg/0.4 Ml Syr) 40 mg SQ BID [facility] Stop: 02/01/20 20:59 Last Admin: 01/12/20 09:18 Dose: 40 mg Documented by: Folic Acid (Folic Acid 1 Mg Tab) 1 mg PO QAM [facility] Stop: 02/05/20 09:29 Last Admin: 01/12/20 09:18 Dose: 1 mg Documented by: Gabapentin (Gabapentin 300 Mg Cap) 900 mg PO TID [facility] Stop: 02/08/20 08:59 Last Admin: 01/12/20 13:44 Dose: 900 mg Documented by: Ceftriaxone Sodium 2,000 mg/ (Dextrose) 70 mls @ 100 mls/hr IV DAILY [facility]; Protocol Stop: 01/16/20 08:59 Last Infusion: 01/12/20 09:20 Dose: Infused Documented by: Lorazepam (Lorazepam 0.5 Mg Tab) 0.5 mg PO Q8H PRN PRN Reason: Anxiety Stop: 02/09/20 18:02 Last Admin: 01/10/20 22:08 Dose: 0.5 mg Documented by: Metoprolol Tartrate (Metoprolol Tartrate 25 Mg Tab) 12.5 mg PO TID [facility] Stop: 02/06/20 08:59 Last Admin: 01/12/20 13:44 Dose: 12.5 mg Documented by: Ondansetron HCl (Ondansetron 4 Mg Od Tab) 4 mg PO Q6H PRN PRN Reason: Nausea Stop: 02/08/20 09:05 Last Admin: 01/10/20 19:04 Dose: 4 mg Documented by: Ondansetron HCl (Ondansetron Inj 2 Mg/Ml 2 Ml Vial) 4 mg IV Q8H [facility] Stop: 02/10/20 13:59 Last Admin: 01/12/20 13:44 Dose: 4 mg Documented by: Oxycodone HCl (Oxycodone Hcl Ir 5 Mg Tab (Immediate Release)) 5 mg PO Q6H PRN PRN Reason: Pain Stop: 01/23/20 17:52 Last Admin: 01/11/20 18:19 Dose: 5 mg Documented by: Polyethylene Glycol (Polyethylene (Miralax) 17 Gm Pack) 17 gm PO DAILY PRN PRN Reason: Constipation Stop: 02/04/20 10:15 Last Admin: 01/08/20 07:49 Dose: 17 gm Documented by: Promethazine HCl (Promethazine Hcl 25 Mg Tab) 25 mg PO Q6H PRN PRN Reason: Nausea And Vomiting Stop: 02/08/20 17:53 Promethazine HCl (Promethazine Hcl 25 Mg Tab) 25 mg PO Q6H PRN PRN Reason: Nausea And Vomiting Stop: 02/10/20 12:31 Quetiapine Fumarate (Quetiapine Fumarate 25 Mg Tablet) 25 mg PO BID [facility] Stop: 02/06/20 08:59 Last Admin: 01/12/20 09:19 Dose: 25 mg Documented by: Senna/Docusate Sodium (Docusate Sodium/Senna 50/8.6mg Tab) 1 tab PO QAM [facility] Stop: 02/04/20 10:14 Last Admin: 01/12/20 09:19 Dose: Not Given Documented by: Thiamine HCl (Thiamine Hcl 100 Mg Tab) 100 mg PO DAILY [facility] Stop: 02/08/20 08:59 Last Admin: 01/12/20 09:19 Dose: 100 mg Documented by: Venlafaxine HCl (Venlafaxine Hcl Xr 75 Mg Capxr) 75 mg PO QAM [facility] Stop: 02/08/20 08:59 Last Admin: 01/12/20 09:18 Dose: 75 mg Documented by: Vitamin D (Cholecalciferol 400 Units 10 Mcg Tab) 400 units PO [facility] Stop: 02/09/20 08:59 Last Admin: 01/12/20 09:19 Dose: 400 units Documented by:
[2020-01-13] MEDS ORDERED: LACTATED RINGER'S 1,000 ML IV ONE (05:55)
[2020-01-13] MEDS ORDERED: POTASSIUM CHLORIDE CRTAB 20 MEQ TABCR PO STA (05:55)
[2020-01-13 06:59] LABS: Basophils # (auto) 0.02 K/uL (0-0.2); Basophils % (auto) 0.2 %; Eosinophils # (auto) 0.16 K/uL (0-0.5); Eosinophils % (auto) 1.2 %; Hematocrit (blood only) 45.3 % (37-47); Hemoglobin 14.4 g/dL (12.0-16.0); Immature Granulocytes # (auto) 0.11 K/uL (0.00-0.02); Immature Granulocytes % (auto) 0.8 %; Lymphocytes # (auto) 1.94 K/uL (1.2-3.4); Mean Corpuscular Hemoglobin 29.2 pg (25-34); Mean Corpuscular Hgb Conc 31.8 g/dL (32-36); Mean Corpuscular Volume 91.9 fL (80-100); Mean Platelet Volume 11.2 fL (7.4-10.4); Monocytes % (auto) 8.5 %; Neutrophils # (auto) 9.62 K/uL (1.4-6.5); Neutrophils % (auto) 74.3 %; Platelet Count 381 K/uL (130-400); RDW Coefficient of Variation 13.9 % (11.5-14.5); RDW Standard Deviation 45.1 fL (36.4-46.3); Red Blood Count 4.93 M/uL (4.2-5.4); White Blood Count 12.95 K/uL (4.8-10.8)
[2020-01-13] MEDS: METOPROLOL TARTRATE 25 MG TAB PO SCH ×3 (07:24→21:08)
[2020-01-13 07:32] LABS: BUN Creatinine Ratio 24.6 (10-20); Calcium 8.9 mg/dl (8.5-10.1); Creatinine Clr Calc Pharmacy 116.2 ml/min; Est GFR (Non-African American) 110.4; Magnesium 2.3 mg/dl (1.8-2.4); Potassium 3.7 mmol/L (3.5-5.1)
[2020-01-13 07:45] LABS: Thyroid Stimulating Hormone 1.14 uIu/ml (0.300-4.500)
[2020-01-13] MEDS: cefTRIAXone SODIUM 2,000 MG in DEXTROSE 5% 50 ML IV SCH (08:15)
[2020-01-13] MEDS: THIAMINE HCL 100 MG TAB PO SCH (09:12)
[2020-01-13] MEDS: VENLAFAXINE HCL XR 75 MG CAPXR PO SCH (09:12)
[2020-01-13] MEDS: GABAPENTIN 300 MG CAP PO SCH ×3 (09:12→21:07)
[2020-01-13] MEDS: DOCUSATE SODIUM/SENNA 50/8.6MG TAB PO SCH ×2 (09:12→11:34)
[2020-01-13] MEDS: CHOLECALCIFEROL 400 UNITS 10 MCG TAB PO SCH (09:12)
[2020-01-13] MEDS: QUEtiapine FUMARATE 25 MG TABLET PO SCH ×2 (09:12→21:08)
[2020-01-13] MEDS: ENOXAPARIN INJ 40 MG/0.4 ML SYR SQ SCH ×2 (09:12→21:07)
[2020-01-13] MEDS: FOLIC ACID 1 MG TAB PO SCH (09:12)
[2020-01-13] MEDS: POLYETHYLENE (MIRALAX) 17 GM PACK PO PRN (11:34)
--- NOTE | 2020-01-13 11:43 | Psychiatric Consultation ---
Date of Consultation January 13, 2020 Impression / Recommendations Impression Dr. Kathy Ocasio was directly involved in review and discussion of the patient's case and participated in medical decision making regarding treatment recommendations. RECOMMENDATIONS: 01/12 - Psychiatric consultation requested by hospitalist service to evaluate patient with regard to ongoing use of quetiapine as well as identification of any additional needs. - Nursing documentation reviewed, which indications intermittent confusion - consistent with limited phone interview with this provider. Pt does still seem to be confused at this time. Delirium is likely multifactorial and it may take additional time before confusion fully clears. In the interim, it does seem appropriate to continue low-dose quetiapine. This can be tapered prior to discharge as patient's mental status improves, as it is not likely to be necessary as a long-term medication option. Dose can certainly be adjusted as necessary - increasing if agitation should worsen, decreasing if patient should become more sedated. - Would continue current dosing of venlafaxine 75mg daily, in order to avoid symptoms of discontinuation syndrome. - Based on current confusion and complexities of her current medical admission, limited ability to assess underlying psychiatric disorder is limited at this time. Continue to monitor for mood or anxiety concerns, and a more extensive evaluation can occur on an outpatient basis when patient has returned to baseline mental and physical functioning. Documentation from our consultation will be faxed to her PCP's office, and patient can be referred for outpatient psychiatric services through her PCP if indicated or desired. Options of inpatient D&A rehab or outpatient substance abuse counseling could also be considered if indicated for opiate addiction. Pt is not presently in a place to discuss these topics in great detail. - Would recommend communicating with patient's PCP regarding her reports of overusing pain medications. Pt is presently refusing to continue her outpatient regimen; however, communication regarding possibility of misuse/overuse is advised. - Please reach out to our service with any additional questions or updates. Psych History Identifying Data 44-year-old female admitted medically on 01/02/2020 after presenting to the ED for difficulty breathing and fever. Pt had been tested for COVID-19, results pending at time of ED visit but have since been confirmed to be positive. Pt required intubation and ICU admission, having displayed agitation and confusion. Psychiatric consultation was requested by hospitalist service to evaluate patient for further needs. Visit occurred via telephone audio call to the patient's room phone ([phone]), patient hospitalized and this provider located at hospital as well. Two identifying factors were utilized to confirm identity of patient and patient consented to telephone consultation. Chief Complaint "Um......um.......I was taking oxy and morphine...and I think I took too much morphine." History of Present Illness Lena Max is a 44-year-old female admitted medically on 01/02/2020 after presenting to the ED with difficulty breathing and fever. Documentation suggested that both the patient and her son had demonstrated symptoms of COVID- 19, with her son testing positive. Pt's test had been pending at time of ED presentation, but has since been confirmed positive. Pt presented as confused and lethargic in the ED, and began displaying agitation - pt ultimately required intubation to protect airway and ensure safety of patient and staff. Due to concern for agitation associated with presumed encephalopathy/delirium, patient was initiated on quetiapine 25mg BID. Psychiatric consultation is being requested by our hospitalist service at this time to provide additional rec ommendations. Pt was cooperative with psychiatric assessment, though admittedly conversation was brief and limited by patient's level of confusion. There was significant delay with answering questions. When asked what brought the patient to the hospital, there was ~60 second delay before patient reported "I was taking oxy and morphine...and I think I took too much morphine." Pt was unable to provide information as to why she believes this may have been the case, and is also unable to share if this has happened in the past. When asked what she feels led to this, the patient stated "being at work." Pt has difficulty with clearly reporting if her increased use was related to increased pain or "stress, maybe? 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 Pt was asked about history of anxiety, depression, or other mental health diagnoses. She indicates "yes", but does not provide any additional information. She becomes emotional, telling this provider that she is crying - reporting "[place] time is hard." It continues to seem as though patient is confused, as she states her sons' father "took his life" which will make this Rachel hard - however, patient states this event occurred when her son was 3y/o. Pt was able to confirm her dosing of venlafaxine and denied suicidal ideation or significant mood concerns presently. 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 She believed the date to be 01/02/2020, identified the hospital as "a medical building", and did not know the current or previous president. Pt consistently reported that she felt nauseated. She denied additional concerns or questions at this time. Pt was offered psychiatric referral for outpatient treatment, and thought that this might be helpful. Past Psychiatric History Outpatient Services: Antidepressant medications prescribed by PCP Past Medication Trials: Per previous medication history - citalopram, nortriptyline, gabapentin Allergies Allergy/AdvReac Type Severity Reaction Status Date / Time prednisone Allergy Unknown Hot/Cold Verified 01/02/20 12:27 flashes, shakiness, emotions run wild. Home Medications Medication Instructions Recorded Confirmed Type albuterol sulfate 2 puff INHALATION QID PRN 01/02/20 01/02/20 History buspirone 7.5 - 15 mg PO BID PRN 01/02/20 01/02/20 History cholecalciferol (vitamin D3) 10 mcg PO QAM 01/02/20 01/02/20 History [Vitamin D3] cyclobenzaprine 10 mg PO TID PRN 01/02/20 01/02/20 History diclofenac sodium [Voltaren] 4 g TOPICAL QID 01/02/20 01/02/20 History gabapentin 1,200 mg PO TID 01/02/20 01/02/20 History indomethacin 50 mg PO TIDM PRN 01/02/20 01/02/20 History morphine 15 mg PO BID 01/02/20 01/02/20 History mv,Ca,min-iron xuts-BB-gpweld 1 tab PO DAILY 01/02/20 01/02/20 History [Hair,Skin and Nails] omeprazole 20 mg PO DAILYBB 01/02/20 01/02/20 History oxycodone-acetaminophen 1 tab PO Q8H PRN 01/02/20 01/02/20 History polyethylene glycol 3350 [Miralax] 17 g PO DAILY PRN 01/02/20 01/02/20 History pyridoxine (vitamin B6) [Vitamin 250 mg PO QAM 01/02/20 01/02/20 History B-6] sennosides [senna] 34.4 mg PO QAM PRN 01/02/20 01/02/20 History topiramate 25 mg PO BID 01/02/20 01/02/20 History venlafaxine 75 mg PO DAILY 01/02/20 01/02/20 History Family History Unable to gather detailed information due to patient's level of confusion. Substance Abuse History Unable to gather detailed information due to patient's level of confusion. Pt is admitting to possibility of utilizing too much morphine prior to admission, but was unable to provide information as to whether this is a regular occurrence. 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 Employed (at [employer]) Number Of Children: 2 young-adult sons Patient History Medical History Acute encephalopathy Agitation Anxiety Back pain Chronic narcotic use Diabetes mellitus type 2, controlled GERD (gastroesophageal reflux disease) Obesity (BMI 30-39.9) SIMIN (obstructive sleep apnea) current settings BIPAP 14 IPAP/ 10 EPAP start ramp [id number] T2DM (type 2 diabetes mellitus) a1c 7.1 12/17/19 not on any oral hypoglycemics Surgical History History of bilateral breast reduction surgery Status post breast reduction Status post cervical spinal fusion Status post section Status post hysterectomy Family History Grandmother (Maternal) Breast cancer Father Arthritis Social History Smoking Status: Unknown if ever smoked Preferred Language: Russian Communication Ability: Unable Communication Ability Comment: vented 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 - called the hospital a "medical building") and cooperative (though participation limited by confusion); + not oriented to time (believed the date to be 01/02/2020) Appearance: Unable to assess directly Eye Contact: Unable to assess directly Motor behavior: Unable to assess directly Speech: + abnormal rate/rhythm/volume of speech (significant delay before responding, difficult to understand at times) Affect: Unable to assess directly Mood: could not clearly identify mood, reported she was crying with certain topics, reported feeling "scared" at other times, but then also reported she is "fine" Thought Process: + tangential thought process; + thought process not linear or logical Thought Content - confused, disoriented at times Suicidal Thoughts: denies suicidal thoughts and denies suicidal intent Cognition: language grossly intact; + recent memory not intact, + remote memory not intact and + attention not intact Insight: + impaired insight Judgement: + impaired judgement Vital Signs (Past 24 Hours): Last Vital Signs Temp 36.5 C 01/13/20 07:24 Pulse 123 H 01/13/20 08:00 Resp 22 01/13/20 07:24 BP 113/89 01/13/20 07:24 Pulse Ox 96 01/13/20 07:24 Exam Statement: Physical examination limited by telephone assessment - unable to visually examine patient due to COVID-19 pandemic consultation limitations. Review of Systems Constitutional: reports headache Cardiovascular: denied Respiratory: denied Gastrointestinal: reports feeling nauseated Neurological: denied Psychiatric: denies symptoms other than stated above Total of at least 10 systems reviewed, pertinent positives as above and in HPI. Results & Data (PSY) Medications Administered Acetaminophen (Acetaminophen 325 Mg Tab) 650 mg PO Q4H PRN PRN Reason: Pain or Fever Stop: 02/08/20 17:51 Last Admin: 01/12/20 12:00 Dose: 650 mg Documented by: [id number] Admin: 01/11/20 04:42 Dose: 650 mg Documented by: [id number] Admin: 01/10/20 19:04 Dose: 650 mg Documented by: [id number] Enoxaparin Sodium (Enoxaparin Inj 40 Mg/0.4 Ml Syr) 40 mg SQ BID [facility] Stop: 02/01/20 20:59 Last Admin: 01/13/20 09:12 Dose: 40 mg Documented by: [id number] Admin: 01/12/20 19:46 Dose: 40 mg Documented by: [id number] Admin: 01/12/20 09:18 Dose: 40 mg Documented by: [id number] Admin: 01/11/20 19:20 Dose: 40 mg Documented by: [id number] Admin: 01/11/20 10:02 Dose: 40 mg Documented by: [id number] Admin: 01/10/20 22:05 Dose: 40 mg Documented by: [id number] Admin: 01/10/20 18:47 Dose: Not Given Documented by: [id number] Admin: 01/09/20 21:43 Dose: 40 mg Documented by: [id number] Admin: 01/09/20 07:58 Dose: 40 mg Documented by: [id number] Admin: 01/08/20 21:04 Dose: 40 mg Documented by: [id number] Admin: 01/08/20 07:42 Dose: 40 mg Documented by: [id number] Admin: 01/07/20 21:48 Dose: 40 mg Documented by: [id number] Admin: 01/07/20 07:59 Dose: 40 mg Documented by: [id number] Admin: 01/06/20 20:27 Dose: 40 mg Documented by: [id number] Admin: 01/06/20 07:46 Dose: 40 mg Documented by: [id number] Admin: 01/05/20 20:07 Dose: 40 mg Documented by: [id number] Folic Acid (Folic Acid 1 Mg Tab) 1 mg PO QAM [facility] Stop: 02/05/20 09:29 Last Admin: 01/13/20 09:12 Dose: 1 mg Documented by: [id number] Admin: 01/12/20 09:18 Dose: 1 mg Documented by: [id number] Admin: 01/11/20 09:58 Dose: 1 mg Documented by: [id number] Admin: 01/10/20 18:47 Dose: Not Given Documented by: [id number] Admin: 01/09/20 08:00 Dose: 1 mg Documented by: [id number] Admin: 01/08/20 07:41 Dose: 1 mg Documented by: [id number] Admin: 01/07/20 07:57 Dose: 1 mg Documented by: [id number] Admin: 01/06/20 10:21 Dose: 1 mg Documented by: [id number] Gabapentin (Gabapentin 300 Mg Cap) 900 mg PO TID [facility]LE[facility] Stop: 02/08/20 08:59 Last Admin: 01/13/20 09:12 Dose: 900 mg Documented by: [id number] Admin: 01/12/20 19:50 Dose: 900 mg Documented by: [id number] Admin: 01/12/20 13:44 Dose: 900 mg Documented by: [id number] Admin: 01/12/20 09:18 Dose: 900 mg Documented by: [id number] Admin: 01/11/20 19:19 Dose: 900 mg Documented by: [id number] Admin: 01/11/20 12:32 Dose: 900 mg Documented by: [id number] Admin: 01/11/20 10:01 Dose: 900 mg Documented by: [id number] Admin: 01/10/20 22:06 Dose: 900 mg Documented by: [id number] Admin: 01/10/20 18:48 Dose: Not Given Documented by: [id number] Admin: 01/10/20 18:47 Dose: Not Given Documented by: [id number] Admin: 01/09/20 21:45 Dose: 900 mg Documented by: [id number] Admin: 01/09/20 15:54 Dose: 900 mg Documented by: [id number] Admin: 01/09/20 07:58 Dose: 900 mg Documented by: [id number] Ceftriaxone Sodium 2,000 mg/ (Dextrose) 70 mls @ 100 mls/hr IV DAILY [facility]LE[facility]; Protocol Stop: 01/16/20 08:59 Last Infusion: 01/13/20 10:23 Dose: 0 mls/hr Documented by: [id number] Admin: 01/13/20 08:15 Dose: 100 mls/hr Documented by: [id number] Infusion: 01/12/20 09:20 Dose: 0 mls/hr Documented by: [id number] Admin: 01/12/20 08:30 Dose: 100 mls/hr Documented by: [id number] Infusion: 01/11/20 10:48 Dose: 0 mls/hr Documented by: [id number] Admin: 01/11/20 10:01 Dose: 100 mls/hr Documented by: [id number] Admin: 01/10/20 18:48 Dose: Not Given Documented by: [id number] Infusion: 01/09/20 09:59 Dose: 0 mls/hr Documented by: [id number] Admin: 01/09/20 09:00 Dose: 100 mls/hr Documented by: [id number] Metoprolol Tartrate (Metoprolol Tartrate 25 Mg Tab) 12.5 mg PO TID [facility]LE[facility] Stop: 02/12/20 06:59 Last Admin: 01/13/20 07:24 Dose: 12.5 mg Documented by: [id number] Polyethylene Glycol (Polyethylene (Miralax) 17 Gm Pack) 17 gm PO DAILY PRN PRN Reason: Constipation Stop: 02/04/20 10:15 Last Admin: 01/08/20 07:49 Dose: 17 gm Documented by: [id number] Admin: 01/07/20 08:58 Dose: 17 gm Documented by: [id number] Quetiapine Fumarate (Quetiapine Fumarate 25 Mg Tablet) 25 mg PO BID [facility] Stop: 02/06/20 08:59 Last Admin: 01/13/20 09:12 Dose: 25 mg Documented by: [id number] Admin: 01/12/20 19:50 Dose: 25 mg Documented by: [id number] Admin: 01/12/20 09:19 Dose: 25 mg Documented by: [id number] Admin: 01/11/20 19:20 Dose: 25 mg Documented by: [id number] Admin: 01/11/20 10:03 Dose: 25 mg Documented by: [id number] Admin: 01/10/20 22:05 Dose: 25 mg Documented by: [id number] Admin: 01/10/20 18:48 Dose: Not Given Documented by: [id number] Admin: 01/09/20 21:46 Dose: 25 mg Documented by: [id number] Admin: 01/09/20 08:00 Dose: 25 mg Documented by: [id number] Admin: 01/08/20 21:03 Dose: 25 mg Documented by: [id number] Admin: 01/08/20 07:42 Dose: 25 mg Documented by: [id number] Admin: 01/07/20 21:49 Dose: 25 mg Documented by: [id number] Admin: 01/07/20 08:49 Dose: 25 mg Documented by: [id number] Senna/Docusate Sodium (Docusate Sodium/Senna 50/8.6mg Tab) 1 tab PO QAM [facility] Stop: 02/04/20 10:14 Last Admin: 01/13/20 09:12 Dose: Not Given Documented by: [id number] Admin: 01/12/20 09:19 Dose: Not Given Documented by: [id number] Admin: 01/11/20 10:03 Dose: Not Given Documented by: [id number] Admin: 01/10/20 18:48 Dose: Not Given Documented by: [id number] Admin: 01/09/20 08:55 Dose: 1 tab Documented by: [id number] Admin: 01/08/20 07:48 Dose: 1 tab Documented by: [id number] Admin: 01/07/20 08:58 Dose: 1 tab Documented by: [id number] Admin: 01/06/20 07:55 Dose: 1 tab Documented by: [id number] Admin: 01/05/20 11:41 Dose: 1 tab Documented by: [id number] Thiamine HCl (Thiamine Hcl 100 Mg Tab) 100 mg PO DAILY [facility] Stop: 02/08/20 08:59 Last Admin: 01/13/20 09:12 Dose: 100 mg Documented by: [id number] Admin: 01/12/20 09:19 Dose: 100 mg Documented by: [id number] Admin: 01/11/20 10:03 Dose: 100 mg Documented by: [id number] Admin: 01/10/20 18:48 Dose: Not Given Documented by: [id number] Admin: 01/09/20 08:55 Dose: 100 mg Documented by: [id number] Venlafaxine HCl (Venlafaxine Hcl Xr 75 Mg Capxr) 75 mg PO QAM [facility] Stop: 02/08/20 08:59 Last Admin: 01/13/20 09:12 Dose: 75 mg Documented by: [id number] Admin: 01/12/20 09:18 Dose: 75 mg Documented by: [id number] Admin: 01/11/20 10:02 Dose: 75 mg Documented by: [id number] Admin: 01/10/20 18:47 Dose: Not Given Documented by: [id number] Admin: 01/09/20 08:55 Dose: 75 mg Documented by: [id number] Vitamin D (Cholecalciferol 400 Units 10 Mcg Tab) [facility] [place] Stop: 02/09/20 08:59 Last Admin: 01/13/20 09:12 Dose: 400 units Documented by: [id number] Admin: 01/12/20 09:19 Dose: 400 units Documented by: [id number] Admin: 01/11/20 09:59 Dose: 400 units Documented by: [id number] Admin: 01/10/20 18:48 Dose: Not Given Documented by: [id number] Coding Level of Care Code 38860 [facility] Lvl 2 Comment Telehealth visit - phone consultation, audio only. COVID-19 pandemic consultation limits.
[2020-01-13] MEDS: ACETAMINOPHEN 325 MG TAB PO PRN (16:56)
--- NOTE | 2020-01-13 19:35 | Hospitalist Progress Note ---
Date of Service January 13, 2020 Assessment & Plan (1) Acute respiratory failure with hypoxia: O2 sats 72% on RA at home when EMS arrived. Intubated in ED. No apparent pulmonary emboli per CTA chest. Hypoxia secondary to COVID pneumonia. Extubated on 01/07 to Precedex and she refused BIPAP. Has h/o SIMIN with ?noncompliance with mask wearing/tolerance. Resolved as she is now on room air. (2) Pneumonia due to COVID-19 virus: Patient was seen in outpatient clinic on 12/31/19 with respiratory symptoms. EMS found her profoundly hypoxic in the field when called. Patient presented to ED with fever, dyspnea, hypoxia, delirium on 01/01. Chest x-ray and CT demonstrated bilateral infiltrates consistent with COVID pneumonia. SARS-CoV-2 PCR in ED positive. Intubated in ED secondary to combativeness & acute respiratory failure and she was admitted to ICU Received course of remdesivir and dexamethasone, Received 5 day course of azithromycin and continues on Rocephin for MSSA in sputum for total 7 days. Currently day 06/11 Now improved and currently oxygenating well on room air. (3) Acute metabolic encephalopathy: [id number], pneumonia, respiratory failure, narcotic use-uses long acting morphine and oxycodone for breakthrough. Required Precedex and Geodon to control agitation This has resolved and she is now mentating at baseline. She is afebrile and appears to be mostly through her opiate withdrawal. Nausea appears more under control and she has some residual sinus tachycardia which is likely physiologic in response to persistent withdrawal, anxiety, or covid as some listed cons iderations. She was placed on seroquel 25mg PO BID while in the ICU and per psych recommendations today, will start to wean this down prior to discharge starting tonight. (4) SIMIN (obstructive sleep apnea): Sleep apnea on BiPAP at home. Resume HS BiPAP as tolerated. (5) Chronic narcotic use: Chronic neck and back pain treated with long acting morphine and percocet for breakthrough. Underwent severe withdrawal from narcotics requiring prolonged sedation with Propofol. She is now off all narcotics for several days and not requesting this. She reports feeling good and denies any pain. 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 (6) Opiate withdrawal: She has been febrile and agitated while in the ICU and difficult to get off sedation and mechanical ventilation. She was intubated and required persistent sedation with her mental status prolonging her intubation. Etiology of encephalopathy was from multiple factors including hypoxic injury, Covid encephalopathy, delirium and opiate withdrawal. She continues on gabapentin and thiamine. May have some persistent residual withdrawal with her resting tachycardia. This appears to improve daily. (7) GERD (gastroesophageal reflux disease): Continue PPI. (8) Diabetes mellitus type 2, controlled: Diet controlled diabetic with an A1C 7.3. She has consistently not required any insulin coverage here. No BSG or insulin coverage at this time. Follow up as outpatient. (9) DVT prophylaxis: Lovenox Full code Disposition-ok to go home when reliably tolerating food and feeling better. Possibly in the next 1-2 days. Vikki Grace DO [facility] Hospitalist Admission and Anticipated Discharge Date Admission Date: January 02, 2020 Subjective cc: acute respiratory failure 2/2 covid-19 and opiate withdrawal Patient states that her nausea has resolved and she is eating today She denies pain Nurse reports patient's pain was well controlled with Tylenol today patient states that she had a BM yesterday Review of Systems Review of Systems: All systems reviewed & are unremarkable except as noted in Subjective Physical Exam Physical Exam: CONSTITUTIONAL: obese, vitals as above, well appearing. EYES: normal conjunctivae, no scleral icterus ENT: external ear and nose normal, MMM RESPIRATORY: clear to auscultation bilaterally, no crackles, rales or wheezes, normal respiratory effort CARDIOVASCULAR: tachy rate and rhythm, S1 and 2 heard without murmurs, gallops or rubs, no JVD, no peripheral edema GASTROINTESTINAL: soft, nontender, nondistended, no guarding MUSCULOSKELETAL: Moves all extremities equally. Head is normocephalic and atraumatic SKIN: warm and dry. Some ecchymosis seen on her forearms that is healing. NEUROLOGIC: CN 2-12 gross intact throughout, normal speech and cognition. She has no gross focal deficits at this time. Results & Data Results & Data ([facility]) Vital Signs (Past 12 Hours) Vital Signs Temp Pulse Pulse Resp BP Pulse Ox 01/13/20 16:00 110 H 01/13/20 15:38 37.0 C 112 H 21 118/82 96 01/13/20 11:51 36.6 C 116 H 20 117/90 96 01/13/20 08:00 123 H Laboratory Results Short CBC 01/13/20 Range/Units 06:19 WBC 12.95 H (4.8-10.8) K/uL Hgb 14.4 (12.0-16.0) g/dL Hct 45.3 (37-47) % Plt Count 381 (130-400) K/uL BMP 01/13/20 06:19 Sodium 136 Potassium 3.7 Chloride 105 Carbon Dioxide 23 BUN 15 Creatinine 0.62 Glucose 118 H Calcium 8.9 Medications Administered Current Inpatient Medications Acetaminophen (Acetaminophen 325 Mg Tab) 650 mg PO Q4H PRN PRN Reason: Pain or Fever Stop: 02/08/20 17:51 Last Admin: 01/13/20 16:56 Dose: 650 mg Documented by: Enoxaparin Sodium (Enoxaparin Inj 40 Mg/0.4 Ml Syr) 40 mg SQ BID [facility] Stop: 02/01/20 20:59 Last Admin: 01/13/20 09:12 Dose: 40 mg Documented by: Folic Acid (Folic Acid 1 Mg Tab) 1 mg PO QAM [facility] Stop: 02/05/20 09:29 Last Admin: 01/13/20 09:12 Dose: 1 mg Documented by: Gabapentin (Gabapentin 300 Mg Cap) 900 mg PO TID [facility] Stop: 02/08/20 08:59 Last Admin: 01/13/20 13:17 Dose: 900 mg Documented by: Ceftriaxone Sodium 2,000 mg/ (Dextrose) 70 mls @ 100 mls/hr IV DAILY [facility]; Protocol Stop: 01/16/20 08:59 Last Infusion: 01/13/20 10:23 Dose: Infused Documented by: Metoprolol Tartrate (Metoprolol Tartrate 25 Mg Tab) 12.5 mg PO TID [facility] Stop: 02/12/20 06:59 Last Admin: 01/13/20 13:17 Dose: 12.5 mg Documented by: Ondansetron HCl (Ondansetron Inj 2 Mg/Ml 2 Ml Vial) 4 mg IV Q8H PRN PRN Reason: Nausea Stop: 02/11/20 18:20 Polyethylene Glycol (Polyethylene (Miralax) 17 Gm Pack) 17 gm PO DAILY PRN PRN Reason: Constipation Stop: 02/04/20 10:15 Last Admin: 01/13/20 11:34 Dose: 17 gm Documented by: Promethazine HCl (Promethazine Hcl 25 Mg Tab) 25 mg PO Q6H PRN PRN Reason: Nausea And Vomiting Stop: 02/08/20 17:53 Quetiapine Fumarate (Quetiapine Fumarate 25 Mg Tablet) 12.5 mg PO BID [facility] Stop: 02/12/20 20:59 Senna/Docusate Sodium (Docusate Sodium/Senna 50/8.6mg Tab) 1 tab PO [facility] Stop: 02/04/20 10:14 Last Admin: 01/13/20 11:34 Dose: 1 tab Documented by: Thiamine HCl (Thiamine Hcl 100 Mg Tab) 100 mg PO DAILY [facility] Stop: 02/08/20 08:59 Last Admin: 01/13/20 09:12 Dose: 100 mg Documented by: Venlafaxine HCl (Venlafaxine Hcl Xr 75 Mg Capxr) 75 mg PO [facility] Stop: 02/08/20 08:59 Last Admin: 01/13/20 09:12 Dose: 75 mg Documented by: Vitamin D (Cholecalciferol 400 Units 10 Mcg Tab) 400 units PO [facility] Stop: 02/09/20 08:59 Last Admin: 01/13/20 09:12 Dose: 400 units Documented by:
[2020-01-14] MEDS: ACETAMINOPHEN 325 MG TAB PO PRN (01:20)
[2020-01-14] MEDS: FOLIC ACID 1 MG TAB PO SCH (08:22)
[2020-01-14] MEDS: VENLAFAXINE HCL XR 75 MG CAPXR PO SCH (08:22)
[2020-01-14] MEDS: QUEtiapine FUMARATE 25 MG TABLET PO SCH ×2 (08:23→20:42)
[2020-01-14] MEDS: GABAPENTIN 300 MG CAP PO SCH ×3 (08:23→20:41)
[2020-01-14] MEDS: METOPROLOL TARTRATE 25 MG TAB PO SCH ×3 (08:23→20:42)
[2020-01-14] MEDS: THIAMINE HCL 100 MG TAB PO SCH (08:24)
[2020-01-14] MEDS: DOCUSATE SODIUM/SENNA 50/8.6MG TAB PO SCH (08:24)
[2020-01-14] MEDS: ENOXAPARIN INJ 40 MG/0.4 ML SYR SQ SCH ×2 (08:24→20:43)
[2020-01-14] MEDS: CHOLECALCIFEROL 400 UNITS 10 MCG TAB PO SCH (08:24)
[2020-01-14] MEDS: cefTRIAXone SODIUM 2,000 MG in DEXTROSE 5% 50 ML IV SCH (08:24)
--- NOTE | 2020-01-14 11:26 | XRay Report ---
XR chest 1V portable HISTORY: 44 years-old Female r/o pneumonia acute shortness of breath with recent extubation COMPARISON: Chest radiograph 01/07/2020 TECHNIQUE: Semierect portable AP view of the chest FINDINGS: Cardiac silhouette is enlarged. Interval extubation with removal of the enteric tube. Moderately impr meño aeration of the lungs. No pneumothorax or large pleural effusion. Persistent reticular pulmonary opacities with linear bibasilar densities suggestive of atelectasis/scarring. Cervical spinal fusion hardware. Bones appear grossly intact. IMPRESSION: 1. Interval extubation with removal of the enteric tube. 2. Moderately improved aeration of the lungs with mild persistent reticular opacities. ACT 112: Negative or not required by law. The above report was generated using voice recognition software. It may contain grammatical, syntax o r spelling errors. Electronically signed by: Juan Staton M.D. 01/14/2020 11:24 AM
--- NOTE | 2020-01-14 14:10 | Hospitalist Progress Note ---
Date of Service January 14, 2020 Assessment & Plan (1) Acute respiratory failure with hypoxia: O2 sats 72% on RA at home when EMS arrived. Intubated in ED. No apparent pulmonary emboli per CTA chest. Hypoxia secondary to COVID pneumonia. Extubated on 01/07 to Precedex and she refused BIPAP. Has h/o SIMIN with ?noncompliance with mask wearing/tolerance. Resolved as she is now on room air. Remains in stable since extubation and has been improving Persistent tachycardia Likely multifactorial including withdrawal from opioids and/or alcohol and is complicated by severe Kovic 19 pneumonia Blood pressure seems to be high in the diastolic Has been on metoprolol 12.5 mg 3 times daily Metoprolol has been increased to 25 mg 3 times daily We will get PT and OT evaluation to see the effect of ambulation on tachycardia Likely discharge tomorrow (2) Pneumonia due to COVID-19 virus: Patient was seen in outpatient clinic on 12/31/19 with respiratory symptoms. EMS found her profoundly hypoxic in the field when called. Patient presented to ED with fever, dyspnea, hypoxia, delirium on 01/01. Chest x-ray and CT demonstrated bilateral infiltrates consistent with COVID pneumonia. SARS-CoV-2 PCR in ED positive. Received course of remdesivir and dexamethasone, Received 5 day course of azithromycin and continues on Rocephin for MSSA in sputum for total 7 days. Appreciate ID input and recommendation and did not qualify for convalescent plasma Now improved and currently oxygenating well on room air. (3) Acute metabolic encephalopathy: [id number], pneumonia, respiratory failure, narcotic use-uses long acting morphine and oxycodone for breakthrough. Required Precedex and Geodon to control agitation She was placed on seroquel 25mg PO BID while in the ICU and per psych recommendations today, will start to wean this down prior to discharge starting tonight. Metabolic encephalopathy is resolved Appreciate psychiatric input and recommendation We will continue current medications as per psychiatrist recommendation (4) SIMIN (obstructive sleep apnea): Sleep apnea on BiPAP at home. Resume HS BiPAP as tolerated. (5) Chronic narcotic use: Chronic neck and back pain treated with long acting morphine and percocet for breakthrough. Underwent severe withdrawal from narcotics requiring prolonged sedation with Propofol. She is now off all narcotics for several days and not requesting this. She reports feeling good and denies any pain. 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 She has not required any more narcotics and she will not be given any narcotics on discharge She agreed not to use any more narcotics as an outpatient (6) Opiate withdrawal: She has been febrile and agitated while in the ICU and difficult to get off sedation and mechanical ventilation. She was intubated and required persistent sedation with her mental status prolonging her intubation. Etiology of encephalopathy was from multiple factors including hypoxic injury, Covid encephalopathy, delirium and opiate withdrawal. She has been on gabapentin and continues on thiamine thiamine and folic acid. (7) GERD (gastroesophageal reflux disease): Continue PPI. (8) Diabetes mellitus type 2, controlled: Diet controlled diabetic with an A1C 7.3. She has consistently not required any insulin coverage here. No BSG or insulin coverage at this time. Follow up as outpatient. (9) DVT prophylaxis: Lovenox Full code Disposition-ok to go home when reliably tolerating food and feeling better. Possibly in the next 1-2 days. Vikki Grace DO [facility] Hospitalist Admission and Anticipated Discharge Date Admission Date: January 02, 2020 Subjective 01/14/2020 The patient was seen and examined in telemetry/Covid unit She has been feeling a lot better but is still having significant tachycardia She denies any symptoms of palpitations, chest pain or shortness of breath She has been ambulating well in the room Review of Systems Review of Systems: All systems reviewed and are unremarkable except as noted below Cardiovascular: + edema (Trace edema bilaterally); no chest pain, no dyspnea at rest and no palpitations Physical Exam Physical Exam: Lying in bed comfortably Constitutional: well developed and well nourished; no acute distress and not ill appearing ENMT: external ear and nose normal, oropharynx normal Neck: trachea midline, no thyromegaly Respiratory: no respiratory distress Auscultation: lungs clear to auscultation bilaterally Cardiovascular: Rate/Rhythm: regular rate and regular rhythm Heart Sounds: no murmur Extremities: no edema Gastrointestinal (Abdomen): Inspection/Auscultation: normal bowel sounds; abdomen not distended Percussion/Palpation: abdomen soft Musculoskeletal: No acute arthritis in any joint Neurologic: Alert, awake and oriented x3. No focal sensory and motor deficit appreciated Psychiatric: A+Ox3, euthymic affect Lymphatic: no cervical or axillary lymphadenopathy Results & Data Results & Data ([facility]) Vital Signs (Past 12 Hours) Vital Signs Temp Pulse Pulse Resp BP Pulse Ox 01/14/20 12:46 120/100 01/14/20 11:24 37.6 C H 131 H 20 132/94 98 01/14/20 08:00 103 H 01/14/20 07:15 37.0 C 137 H 139/101 H 98 01/14/20 03:44 37.3 C 124 H 18 98/68 L 97 Medications Administered Current Inpatient Medications Acetaminophen (Acetaminophen 325 Mg Tab) 650 mg PO Q4H PRN PRN Reason: Pain or Fever Stop: 02/08/20 17:51 Last Admin: 01/14/20 01:20 Dose: 650 mg Documented by: Enoxaparin Sodium (Enoxaparin Inj 40 Mg/0.4 Ml Syr) 40 mg SQ BID [facility] Stop: 02/01/20 20:59 Last Admin: 01/14/20 08:24 Dose: 40 mg Documented by: Folic Acid (Folic Acid 1 Mg Tab) 1 mg PO QAM [facility] Stop: 02/05/20 09:29 Last Admin: 01/14/20 08:22 Dose: 1 mg Documented by: Gabapentin (Gabapentin 300 Mg Cap) 900 mg PO TID [facility] Stop: 02/08/20 08:59 Last Admin: 01/14/20 08:23 Dose: 900 mg Documented by: Ceftriaxone Sodium 2,000 mg/ (Dextrose) 70 mls @ 100 mls/hr IV DAILY [facility]; Protocol Stop: 01/16/20 08:59 Last Infusion: 01/14/20 09:06 Dose: Infused Documented by: Metoprolol Tartrate (Metoprolol Tartrate 25 Mg Tab) 25 mg PO TID [facility] Stop: 02/13/20 13:59 Last Admin: 01/14/20 12:45 Dose: 25 mg Documented by: Ondansetron HCl (Ondansetron Inj 2 Mg/Ml 2 Ml Vial) 4 mg IV Q8H PRN PRN Reason: Nausea Stop: 02/11/20 18:20 Polyethylene Glycol (Polyethylene (Miralax) 17 Gm Pack) 17 gm PO DAILY PRN PRN Reason: Constipation Stop: 02/04/20 10:15 Last Admin: 01/13/20 11:34 Dose: 17 gm Documented by: Promethazine HCl (Promethazine Hcl 25 Mg Tab) 25 mg PO Q6H PRN PRN Reason: Nausea And Vomiting Stop: 02/08/20 17:53 Quetiapine Fumarate (Quetiapine Fumarate 25 Mg Tablet) 12.5 mg PO BID [facility] Stop: 02/12/20 20:59 Last Admin: 01/14/20 08:23 Dose: 12.5 mg Documented by: Senna/Docusate Sodium (Docusate Sodium/Senna 50/8.6mg Tab) 1 tab PO [facility] Stop: 02/04/20 10:14 Last Admin: 01/14/20 08:24 Dose: Not Given Documented by: Thiamine HCl (Thiamine Hcl 100 Mg Tab) 100 mg PO DAILY [facility] Stop: 02/08/20 08:59 Last Admin: 01/14/20 08:24 Dose: 100 mg Documented by: Venlafaxine HCl (Venlafaxine Hcl Xr 75 Mg Capxr) 75 mg PO [facility] Stop: 02/08/20 08:59 Last Admin: 01/14/20 08:22 Dose: 75 mg Documented by: Vitamin D (Cholecalciferol 400 Units 10 Mcg Tab) 400 units PO [facility] Stop: 02/09/20 08:59 Last Admin: 01/14/20 08:24 Dose: 400 units Documented by:
[2020-01-15 06:40] LABS: Basophils # (auto) 0.03 K/uL (0-0.2); Basophils % (auto) 0.2 %; Eosinophils # (auto) 0.14 K/uL (0-0.5); Eosinophils % (auto) 0.9 %; Hematocrit (blood only) 44.6 % (37-47); Hemoglobin 14.6 g/dL (12.0-16.0); Immature Granulocytes # (auto) 0.08 K/uL (0.00-0.02); Immature Granulocytes % (auto) 0.5 %; Lymphocytes # (auto) 2.77 K/uL (1.2-3.4); Lymphocytes % (auto) 18.7 %; Mean Corpuscular Hemoglobin 30.2 pg (25-34); Mean Corpuscular Hgb Conc 32.7 g/dL (32-36); Mean Corpuscular Volume 92.1 fL (80-100); Mean Platelet Volume 12.3 fL (7.4-10.4); Monocytes # (auto) 1.14 K/uL (0.11-0.59); Monocytes % (auto) 7.7 %; Neutrophils # (auto) 10.62 K/uL (1.4-6.5); Platelet Count 423 K/uL (130-400); RDW Coefficient of Variation 14.6 % (11.5-14.5); RDW Standard Deviation 47.6 fL (36.4-46.3); Red Blood Count 4.84 M/uL (4.2-5.4); White Blood Count 14.78 K/uL (4.8-10.8)
[2020-01-15] MEDS: ONDANSETRON INJ 2 MG/ML 2 ML VIAL IV PRN ×3 (06:54→22:03)
[2020-01-15 07:19] LABS: Albumin Level 3.6 gm/dl (3.4-5.0); Calcium 9.7 mg/dl (8.5-10.1); Creatinine Clr Calc Pharmacy 115.9 ml/min; Est GFR (Non-African American) 110.4; Magnesium 2.3 mg/dl (1.8-2.4); Potassium 3.3 mmol/L (3.5-5.1)
[2020-01-15 07:22] LABS: Albumin Globulin Ratio 0.9 (0.9-2); Bilirubin,Total 0.8 mg/dl (0.2-1); Phosphorus 3.1 mg/dl (2.5-4.9); Total Protein 7.6 gm/dl (6.4-8.2)
[2020-01-15] MEDS ORDERED: POTASSIUM CHLORIDE CRTAB 20 MEQ TABCR PO STA (08:05)
[2020-01-15] MEDS: ACETAMINOPHEN 325 MG TAB PO PRN ×2 (08:11→22:03)
[2020-01-15] MEDS: GABAPENTIN 300 MG CAP PO SCH ×3 (08:12→22:02)
[2020-01-15] MEDS: VENLAFAXINE HCL XR 75 MG CAPXR PO SCH (08:12)
[2020-01-15] MEDS: THIAMINE HCL 100 MG TAB PO SCH (08:12)
[2020-01-15] MEDS: QUEtiapine FUMARATE 25 MG TABLET PO SCH ×2 (08:12→22:02)
[2020-01-15] MEDS: METOPROLOL TARTRATE 25 MG TAB PO SCH (08:13)
[2020-01-15] MEDS: FOLIC ACID 1 MG TAB PO SCH (08:13)
[2020-01-15] MEDS: ENOXAPARIN INJ 40 MG/0.4 ML SYR SQ SCH ×2 (08:14→22:01)
[2020-01-15] MEDS: cefTRIAXone SODIUM 2,000 MG in DEXTROSE 5% 50 ML IV SCH (08:14)
[2020-01-15] MEDS: CHOLECALCIFEROL 400 UNITS 10 MCG TAB PO SCH (08:15)
[2020-01-15] MEDS: METOPROLOL SUCC 50MG EXT REL TAB PO SCH (10:47)
[2020-01-15] MEDS: DOCUSATE SODIUM/SENNA 50/8.6MG TAB PO SCH (10:48)
--- NOTE | 2020-01-15 14:07 | Hospitalist Progress Note ---
Date of Service January 15, 2020 Assessment & Plan (1) Acute respiratory failure with hypoxia: O2 sats 72% on RA at home when EMS arrived. Intubated in ED. No apparent pulmonary emboli per CTA chest. Hypoxia secondary to COVID pneumonia. Extubated on 01/07 to Precedex and she refused BIPAP. Has h/o SIMIN with ?noncompliance with mask wearing/tolerance. Resolved as she is now on room air. Remains in stable since extubation and has been improving Denies any more shortness of breath and saturation more than 94% on room air Persistent tachycardia Likely multifactorial including withdrawal from opioids and/or alcohol and is complicated by severe Kovic 19 pneumonia Blood pressure seems to be high in the diastolic Has been on metoprolol 12.5 mg 3 times daily Metoprolol has been increased to 25 mg 3 times daily We will get PT and OT evaluation to see the effect of ambulation on tachycardia Likely discharge tomorrow Abdominal pain Generalized since this morning Tender to palpate but remains soft Remains tachycardic with increasing white count Will get CT of the abdomen and pelvis without contrast (2) Pneumonia due to COVID-19 virus: Patient was seen in outpatient clinic on 12/31/19 with respiratory symptoms. EMS found her profoundly hypoxic in the field when called. Patient presented to ED with fever, dyspnea, hypoxia, delirium on 01/01. Chest x-ray and CT demonstrated bilateral infiltrates consistent with COVID pneumonia. SARS-CoV-2 PCR in ED positive. Received course of remdesivir and dexamethasone, Received 5 day course of azithromycin and continues on Rocephin for MSSA in sputum for total 7 days. Appreciate ID input and recommendation and did not qualify for convalescent plasma Now improved and currently oxygenating well on room air. (3) Acute metabolic encephalopathy: [id number], pneumonia, respiratory failure, narcotic use-uses long acting morphine and oxycodone for breakthrough. Required Precedex and Geodon to control agitation She was placed on seroquel 25mg PO BID while in the ICU and per psych recommendations today, will start to wean this down prior to discharge starting tonight. Metabolic encephalopathy is resolved Appreciate psychiatric input and recommendation We will continue current medications as per psychiatrist recommendation (4) SIMIN (obstructive sleep apnea): Sleep apnea on BiPAP at home. Resume HS BiPAP as tolerated. (5) Chronic narcotic use: Chronic neck and back pain treated with long acting morphine and percocet for breakthrough. Underwent severe withdrawal from narcotics requiring prolonged sedation with Propofol. She is now off all narcotics for several days and not requesting this. She reports feeling good and denies any pain. With her high risk of addiction, would not continue her on any benzodiazepines [employer] broad[employer]. She has not required any more narcotics and she will not be given any narcotics on discharge She agreed not to use any more narcotics as an outpatient (6) Opiate withdrawal: She has been febrile and agitated while in the ICU and difficult to get off sedation and mechanical ventilation. She was intubated and required persistent sedation with her mental status prolonging her intubation. Etiology of encephalopathy was from multiple factors including hypoxic injury, Covid encephalopathy, delirium and opiate withdrawal. She has been on gabapentin and continues on thiamine thiamine and folic acid. Still has the symptoms of withdrawal (7) GERD (gastroesophageal reflux disease): Continue PPI. (8) Diabetes mellitus type 2, controlled: Diet controlled diabetic with an A1C 7.3. She has consistently not required any insulin coverage here. No BSG or insulin coverage at this time. Follow up as outpatient. (9) DVT prophylaxis: Lovenox Full code Disposition-ok to go home when reliably tolerating food and feeling better. Possibly in the next 1-2 days. Admission and Anticipated Discharge Date Admission Date: January 02, 2020 Subjective 01/14/2020 The patient was seen and examined in telemetry/Covid unit She has been feeling a lot better but is still having significant tachycardia She denies any symptoms of palpitations, chest pain or shortness of breath She has been ambulating well in the room 01/15/2020 The patient was seen and examined in telemetry/Covid unit She remains tachycardic and today she complains to have acute abdominal pain with nausea She moved her bowel but denies to any fever and/or chills She does not have any shortness of breath and the saturation remains stable on room air Review of Systems Review of Systems: All systems reviewed and are unremarkable except as noted below Cardiovascular: + edema (Trace edema bilaterally); no chest pain, no dyspnea at rest and no palpitations Physical Exam Physical Exam: Lying in bed with acute distress due to abdominal pain and nausea Constitutional: well developed and well nourished; no acute distress and not ill appearing ENMT: external ear and nose normal, oropharynx normal Neck: trachea midline, no thyromegaly Respiratory: no respiratory distress Auscultation: lungs clear to auscultation bilaterally Cardiovascular: Rate/Rhythm: regular rate and regular rhythm Heart Sounds: no murmur Extremities: no edema Gastrointestinal (Abdomen): Inspection/Auscultation: normal bowel sounds; abdomen not distended Percussion/Palpation: + abdomen tender (Extremely tender all over) and abdomen soft Musculoskeletal: No acute arthritis in any joint Psychiatric: A+Ox3, euthymic affect Lymphatic: no cervical or axillary lymphadenopathy Results & Data Results & Data ([facility]) Vital Signs (Past 12 Hours) Vital Signs Temp Pulse Resp BP Pulse Ox 01/15/20 10:45 37.3 C 109 H 16 94/48 L 98 01/15/20 07:47 37.2 C 128 H 16 120/94 96 Laboratory Results Short CBC 01/15/20 Range/Units 05:35 WBC 14.78 H (4.8-10.8) K/uL Hgb 14.6 (12.0-16.0) g/dL Hct 44.6 (37-47) % Plt Count 423 H (130-400) K/uL BMP 01/15/20 05:35 Sodium 141 Potassium 3.3 L Chloride 107 Carbon Dioxide 23 BUN 18 Creatinine 0.62 Glucose 138 H Calcium 9.7 Liver Function 01/15/20 Range/Units 05:35 Total Bilirubin 0.8 (0.2-1) mg/dl AST 16 (15-37) U/L ALT 25 (12-78) U/L Alkaline Phosphatase 87 (45-117) U/L Albumin 3.6 (3.4-5.0) gm/dl Medications Administered Current Inpatient Medications Acetaminophen (Acetaminophen 325 Mg Tab) 650 mg PO Q4H PRN PRN Reason: Pain or Fever Stop: 02/08/20 17:51 Last Admin: 01/15/20 08:11 Dose: 650 mg Documented by: Enoxaparin Sodium (Enoxaparin Inj 40 Mg/0.4 Ml Syr) 40 mg SQ BID [facility] Stop: 02/01/20 20:59 Last Admin: 01/15/20 08:14 Dose: 40 mg Documented by: Folic Acid (Folic Acid 1 Mg Tab) 1 mg PO QAM [facility] Stop: 02/05/20 09:29 Last Admin: 01/15/20 08:13 Dose: 1 mg Documented by: Gabapentin (Gabapentin 300 Mg Cap) 900 mg PO TID [facility] Stop: 02/08/20 08:59 Last Admin: 01/15/20 13:54 Dose: 900 mg Documented by: Ceftriaxone Sodium 2,000 mg/ (Dextrose) 70 mls @ 100 mls/hr IV DAILY [facility]; Protocol Stop: 01/16/20 08:59 Last Infusion: 01/15/20 10:01 Dose: Infused Documented by: Metoprolol Succinate (Metoprolol Succ 50mg Ext Rel Tab) 50 mg PO QAM [facility] Stop: 02/14/20 08:59 Last Admin: 01/15/20 10:47 Dose: Not Given Documented by: Ondansetron HCl (Ondansetron Inj 2 Mg/Ml 2 Ml Vial) 4 mg IV Q8H PRN PRN Reason: Nausea Stop: 02/11/20 18:20 Last Admin: 01/15/20 13:54 Dose: 4 mg Documented by: Polyethylene Glycol (Polyethylene (Miralax) 17 Gm Pack) 17 gm PO DAILY PRN PRN Reason: Constipation Stop: 02/04/20 10:15 Last Admin: 01/13/20 11:34 Dose: 17 gm Documented by: Promethazine HCl (Promethazine Hcl 25 Mg Tab) 25 mg PO Q6H PRN PRN Reason: Nausea And Vomiting Stop: 02/08/20 17:53 Quetiapine Fumarate (Quetiapine Fumarate 25 Mg Tablet) 12.5 mg PO BID [facility] Stop: 02/12/20 20:59 Last Admin: 01/15/20 08:12 Dose: 12.5 mg Documented by: Senna/Docusate Sodium (Docusate Sodium/Senna 50/8.6mg Tab) 1 tab PO [facility] Stop: 02/04/20 10:14 Last Admin: 01/15/20 10:48 Dose: 1 tab Documented by: Thiamine HCl (Thiamine Hcl 100 Mg Tab) 100 mg PO DAILY [facility] Stop: 02/08/20 08:59 Last Admin: 01/15/20 08:12 Dose: 100 mg Documented by: Venlafaxine HCl (Venlafaxine Hcl Xr 75 Mg Capxr) 75 mg PO [facility] Stop: 02/08/20 08:59 Last Admin: 01/15/20 08:12 Dose: 75 mg Documented by: Vitamin D (Cholecalciferol 400 Units 10 Mcg Tab) [facility]: 02/09/20 08:59 Last Admin: 01/15/20 08:15 Dose: 400 units Documented by:
--- NOTE | 2020-01-15 14:41 | CT Scan Report ---
CT OF THE ABDOMEN AND PELVIS WITHOUT CONTRAST CLINICAL HISTORY: Acute abdomen. COMPARISON STUDY: CT of the abdomen and pelvis January 07, 2016. KUB January 07, 2020. Chest CT Nove 2019. TECHNIQUE: Axial images of the abdomen and pelvis were obtained without IV contrast. Images were revi ewed in the axial, sagittal, and coronal planes. Automated exposure control was utilized for the sudheer dy. A dose lowering technique was utilized adhering to the principles of ALARA. FINDINGS: Visualized portions of the lower lungs demonstrate moderate multifocal groundglass and smal l irregular nodular opacities. No pneumatosis, free air or portal venous gas is present. Evaluation o f the abdomen and pelvis is suboptimal on this unenhanced examination. The liver, spleen, adrenal gla nds, kidneys and pancreas are normal. There is no biliary or pancreatic ductal dilatation. Compared t o prior CT, the pancreas is slightly prominent. There is no definite peripancreatic infiltration. The re are no peripancreatic fluid collections. No urinary calculi are present. Evaluation of the abdomen and pelvis is suboptimal on this unenhanced exam. The appendix is normal. A few colonic diverticula are noted without evidence for acute diverticulitis. There is no lymphadenopathy. Several foci of sub cutaneous gas within the abdominal wall or from recent injections. There are no suspicious osseous le sions. No acute fracture is identified within visualized skeletal structures. There is no ascites. IMPRESSION: 1. Slight prominence of the pancreas compared to prior exam. This is likely within normal limits alth ough acute pancreatitis cannot be excluded. This could be correlated with biochemical evidence for ac [place] appendicitis. 2. Moderate multifocal groundglass and small nodular airspace opacities within the lower lungs consis tent with viral pneumonia. Significant interval improvement in lung aeration since prior chest CT of January 02, 2020. 3. No bowel obstruction. Normal appendix. No bowel wall thickening on unenhanced exam. ACT 112: Negative or not required by law. Electronically signed by: Steve Blackwell M.D. 01/15/2020 2:40 PM
[2020-01-15] MEDS: NSS + 20MEQ KCL 20 MEQ/1,000 ML BAG IV SCH (16:14)
[2020-01-15] MEDS: KETOROLAC 30 MG/ML VIAL IV PRN (19:43)
[2020-01-16] MEDS: NSS + 20MEQ KCL 20 MEQ/1,000 ML BAG IV SCH ×4 (01:01→17:31)
[2020-01-16] MEDS: KETOROLAC 30 MG/ML VIAL IV PRN (04:33)
--- NOTE | 2020-01-16 06:50 | Electrocardiogram Report ---
Test Reason : Blood Pressure : / mmHG Vent. Rate : 125 BPM Atrial Rate : 125 BPM P-R Int : 112 ms QRS Dur : 076 ms QT Int : 320 ms P-R-T Axes : 054 017 204 degrees QTc Int : 461 ms Sinus tachycardia Cannot rule out Inferior infarct , age undetermined T wave abnormality, consider lateral ischemia Abnormal ECG When compared with ECG of 08-JAN-2020 08:14, T wave inversion now evident in Anterolateral leads Confirmed by Rishi Clayton ([id number]) on 01/16/2020 6:50:17 AM Referred By: REFERRED SELF Confirmed By:Rishi Clayton
[2020-01-16 06:51] LABS: Basophils # (auto) 0.04 K/uL (0-0.2); Basophils % (auto) 0.5 %; Eosinophils # (auto) 0.15 K/uL (0-0.5); Eosinophils % (auto) 1.8 %; Hematocrit (blood only) 37.4 % (37-47); Hemoglobin 12.1 g/dL (12.0-16.0); Immature Granulocytes # (auto) 0.02 K/uL (0.00-0.02); Immature Granulocytes % (auto) 0.2 %; Lymphocytes # (auto) 1.92 K/uL (1.2-3.4); Lymphocytes % (auto) 23.2 %; Mean Corpuscular Hemoglobin 29.9 pg (25-34); Mean Corpuscular Hgb Conc 32.4 g/dL (32-36); Mean Corpuscular Volume 92.3 fL (80-100); Monocytes # (auto) 0.62 K/uL (0.11-0.59); Monocytes % (auto) 7.5 %; Neutrophils # (auto) 5.52 K/uL (1.4-6.5); Neutrophils % (auto) 66.8 %; Platelet Count 301 K/uL (130-400); RDW Coefficient of Variation 14.5 % (11.5-14.5); RDW Standard Deviation 47.4 fL (36.4-46.3); Red Blood Count 4.05 M/uL (4.2-5.4); White Blood Count 8.27 K/uL (4.8-10.8)
[2020-01-16 07:24] LABS: Albumin Globulin Ratio 0.9 (0.9-2); Albumin Level 2.9 gm/dl (3.4-5.0); BUN Creatinine Ratio 35.9 (10-20); Bilirubin,Total 0.6 mg/dl (0.2-1); Calcium 8.2 mg/dl (8.5-10.1); Creatinine Clr Calc Pharmacy 151.4 ml/min; Est GFR (African American) 139.2; Est GFR (Non-African American) 120.1; Globulin 3.4 gm/dl (2.5-4.0); Potassium 3.8 mmol/L (3.5-5.1); Total Protein 6.3 gm/dl (6.4-8.2)
[2020-01-16] MEDS: ENOXAPARIN INJ 40 MG/0.4 ML SYR SQ SCH ×2 (08:13→20:20)
[2020-01-16] MEDS: GABAPENTIN 300 MG CAP PO SCH ×3 (08:13→20:20)
[2020-01-16] MEDS: METOPROLOL SUCC 50MG EXT REL TAB PO SCH (08:17)
[2020-01-16] MEDS: FOLIC ACID 1 MG TAB PO SCH (08:18)
[2020-01-16] MEDS: THIAMINE HCL 100 MG TAB PO SCH (08:18)
[2020-01-16] MEDS: CHOLECALCIFEROL 400 UNITS 10 MCG TAB PO SCH (08:18)
[2020-01-16] MEDS: QUEtiapine FUMARATE 25 MG TABLET PO SCH ×2 (08:19→20:19)
[2020-01-16] MEDS: VENLAFAXINE HCL XR 75 MG CAPXR PO SCH (08:22)
[2020-01-16] MEDS: DOCUSATE SODIUM/SENNA 50/8.6MG TAB PO SCH (08:23)
[2020-01-16] MEDS ORDERED: diphenhydrAMINE Capsule 25 MG CAP PO PRN (11:24)
[2020-01-16] MEDS ORDERED: LOPERAMIDE HCL 2 MG CAP PO PRN (11:24)
[2020-01-16] MEDS: SUCRALFATE 1 GM/10 ML UDC PO SCH ×3 (13:33→20:20)
[2020-01-16] MEDS: ACETAMINOPHEN 325 MG TAB PO PRN (23:01)
[2020-01-17] MEDS: NSS + 20MEQ KCL 20 MEQ/1,000 ML BAG IV SCH (04:15)
[2020-01-17] MEDS: FOLIC ACID 1 MG TAB PO SCH (08:26)
[2020-01-17] MEDS: THIAMINE HCL 100 MG TAB PO SCH (08:26)
[2020-01-17] MEDS: SUCRALFATE 1 GM/10 ML UDC PO SCH ×2 (08:26→11:30)
[2020-01-17] MEDS: QUEtiapine FUMARATE 25 MG TABLET PO SCH (08:26)
[2020-01-17] MEDS: CHOLECALCIFEROL 400 UNITS 10 MCG TAB PO SCH (08:27)
[2020-01-17] MEDS: VENLAFAXINE HCL XR 75 MG CAPXR PO SCH (08:27)
[2020-01-17] MEDS: DOCUSATE SODIUM/SENNA 50/8.6MG TAB PO SCH (08:28)
[2020-01-17] MEDS: METOPROLOL SUCC 50MG EXT REL TAB PO SCH (08:28)
[2020-01-17] MEDS: ENOXAPARIN INJ 40 MG/0.4 ML SYR SQ SCH (08:29)
[2020-01-17] MEDS: GABAPENTIN 300 MG CAP PO SCH (08:29)
--- NOTE | 2020-01-17 11:22 | Hospitalist Progress Note ---
Date of Service January 17, 2020 This is a delayed documentation for 01/16/2020 Assessment & Plan (1) Acute respiratory failure with hypoxia: O2 sats 72% on RA at home when EMS arrived. Intubated in ED. No apparent pulmonary emboli per CTA chest. Hypoxia secondary to COVID pneumonia. Extubated on 01/07 to Precedex and she refused BIPAP. Has h/o SIMIN with ?noncompliance with mask wearing/tolerance. Resolved as she is now on room air. Remains in stable since extubation and has been improving Denies any more shortness of breath and saturation more than 94% on room air Persistent tachycardia Likely multifactorial including withdrawal from opioids and/or alcohol and is complicated by severe Kovic 19 pneumonia Blood pressure seems to be high in the diastolic Has been on metoprolol 12.5 mg 3 times daily Metoprolol has been increased to 25 mg 3 times daily We will get PT and OT evaluation to see the effect of ambulation on tachycardia Remains tachycardic Still complains anxiety and unsteadiness We will get PT and OT evaluation Abdominal pain Generalized since this morning Tender to palpate but remains soft Remains tachycardic with increasing white count Will get CT of the abdomen and pelvis without contrast CT abdomen did show possible pancreatitis and that has been resolved (2) Pneumonia due to COVID-19 virus: Patient was seen in outpatient clinic on 12/31/19 with respiratory symptoms. EMS found her profoundly hypoxic in the field when called. Patient presented to ED with fever, dyspnea, hypoxia, delirium on 01/01. Chest x-ray and CT demonstrated bilateral infiltrates consistent with COVID pneumonia. SARS-CoV-2 PCR in ED positive. Received course of remdesivir and dexamethasone, Received 5 day course of azithromycin and continues on Rocephin for MSSA in sputum for total 7 days. Appreciate ID input and recommendation and did not qualify for convalescent plasma Now improved and currently oxygenating well on room air. (3) Acute metabolic encephalopathy: [id number], pneumonia, respiratory failure, narcotic use-uses long acting morphine and oxycodone for breakthrough. Required Precedex and Geodon to control agitation She was placed on seroquel 25mg PO BID while in the ICU and per psych recommendations today, will start to wean this down prior to discharge starting tonight. Metabolic encephalopathy is resolved Appreciate psychiatric input and recommendation We will continue current medications as per psychiatrist recommendation (4) SIMIN (obstructive sleep apnea): Sleep apnea on BiPAP at home. Resume HS BiPAP as tolerated. (5) Chronic narcotic use: Chronic neck and back pain treated with long acting morphine and percocet for breakthrough. Underwent severe withdrawal from narcotics requiring prolonged sedation with Propofol. She is now off all narcotics for several days and not requesting this. She reports feeling good and denies any pain. With her high risk of addiction, would not continue her on any benzodiazepines longterm. She has not required any more narcotics and she will not be given any narcotics on discharge She agreed not to use any more narcotics as an outpatient Has been getting gabapentin and dose has been increased to 600mg 3 times daily (6) Opiate withdrawal: She has been febrile and agitated while in the ICU and difficult to get off sedation and mechanical ventilation. She was intubated and required persistent sedation with her mental status prolonging her intubation. Etiology of encephalopathy was from multiple factors including hypoxic injury, Covid encephalopathy, delirium and opiate withdrawal. She has been on gabapentin and continues on thiamine thiamine and folic acid. Still has the symptoms of withdrawal (7) GERD (gastroesophageal reflux disease): Continue PPI. (8) Diabetes mellitus type 2, controlled: Diet controlled diabetic with an A1C 7.3. She has consistently not required any insulin coverage here. No BSG or insulin coverage at this time. Follow up as outpatient. (9) DVT prophylaxis: Lovenox Full code Disposition-ok to go home when reliably tolerating food and feeling better. Possibly in the next 1-2 days. Likely discharge in a day or 2 Admission and Anticipated Discharge Date Admission Date: January 02, 2020 Subjective 01/14/2020 The patient was seen and examined in telemetry/Covid unit She has been feeling a lot better but is still having significant tachycardia She denies any symptoms of palpitations, chest pain or shortness of breath She has been ambulating well in the room 01/15/2020 The patient was seen and examined in telemetry/Covid unit She remains tachycardic and today she complains to have acute abdominal pain with nausea She moved her bowel but denies to any fever and/or chills She does not have any shortness of breath and the saturation remains stable on room air 01/16/2020 The patient was seen and examined in telemetry/Covid unit Her abdominal pain is much better She has had a fall without any significant injury She is convinced to stay another night before going home She has been complaining of some indigestion/epigastric discomfort with food Review of Systems Review of Systems: All systems reviewed and are unremarkable except as noted below Cardiovascular: + edema (Trace edema bilaterally); no chest pain, no dyspnea at rest and no palpitations Physical Exam Physical Exam: Lying in bed with acute distress due to abdominal pain and nausea Constitutional: well developed and well nourished; no acute distress and not ill appearing ENMT: external ear and nose normal, oropharynx normal Neck: trachea midline, no thyromegaly Respiratory: no respiratory distress Auscultation: lungs clear to auscultation bilaterally Cardiovascular: Rate/Rhythm: regular rate and regular rhythm Heart Sounds: no murmur Extremities: no edema Gastrointestinal (Abdomen): Inspection/Auscultation: normal bowel sounds; abdomen not distended Percussion/Palpation: + abdomen tender (Extremely tende r all over) and abdomen soft Musculoskeletal: No acute arthritis in any joint Psychiatric: A+Ox3, euthymic affect Lymphatic: no cervical or axillary lymphadenopathy Results & Data Results & Data ([facility]) Vital Signs (Past 12 Hours) Vital Signs Temp Pulse Pulse Resp BP Pulse Ox 01/17/20 08:15 37.2 C 124 H 18 122/74 100 01/17/20 08:00 115 H 01/17/20 02:54 36.9 C 107 H 20 123/77 99 01/16/20 23:22 37.4 C 108 H 18 100/68 98
--- NOTE | 2020-01-17 12:56 | Hospitalist Progress Note ---
Date of Service January 17, 2020 Assessment & Plan (1) Acute respiratory failure with hypoxia: O2 sats 72% on RA at home when EMS arrived. Intubated in ED. No apparent pulmonary emboli per CTA chest. Hypoxia secondary to COVID pneumonia. Extubated on 01/07 to Precedex and she refused BIPAP. Has h/o SIMIN with ?noncompliance with mask wearing/tolerance. Resolved as she is now on room air. Remains in stable since extubation and has been improving Denies any more shortness of breath and saturation more than 94% on room air Has been getting physical therapy and doing very well Denies any shortness of breath on exertion Persistent tachycardia Likely multifactorial including withdrawal from opioids and/or alcohol and is complicated by severe Kovic 19 pneumonia Blood pressure seems to be high in the diastolic Has been on metoprolol 12.5 mg 3 times daily Metoprolol has been increased to 25 mg 3 times daily We will get PT and OT evaluation to see the effect of ambulation on tachycardia Remains tachycardic Still complains anxiety and unsteadiness Heart rate remains around 110-no palpitation while in ambulation Abdominal pain Generalized since this morning Tender to palpate but remains soft Remains tachycardic with increasing white count Will get CT of the abdomen and pelvis without contrast CT abdomen did show possible pancreatitis and that has been resolved Denies any mid abdominal pain and/or distention (2) Pneumonia due to COVID-19 virus: Patient was seen in outpatient clinic on 12/31/19 with respiratory symptoms. EMS found her profoundly hypoxic in the field when called. Patient presented to ED with fever, dyspnea, hypoxia, delirium on 01/01. Chest x-ray and CT demonstrated bilateral infiltrates consistent with COVID pneumonia. SARS-CoV-2 PCR in ED positive. Received course of remdesivir and dexamethasone, Received 5 day course of azithromycin and continues on Rocephin for MSSA in sputum for total 7 days. Appreciate ID input and recommendation and did not qualify for convalescent plasma Now improved and currently oxygenating well on room air. No symptoms of Covid disease and she is 15 days since the diagnosis of Covid She will be discharged home today and was advised to wear mask for the next 5 days even though she does not have any symptoms of Covid (3) Acute metabolic encephalopathy: [id number], pneumonia, respiratory failure, narcotic use-uses long acting morphine and oxycodone for breakthrough. Required Precedex and Geodon to control agitation She was placed on seroquel 25mg PO BID while in the ICU and per psych recommendations today, will start to wean this down prior to discharge starting tonight. Metabolic encephalopathy is resolved Appreciate psychiatric input and recommendation We will continue current medications as per psychiatrist recommendation Advised to keep follow-up appointment with her outpatient psychiatrist (4) SIMIN (obstructive sleep apnea): Sleep apnea on BiPAP at home. Resume HS BiPAP as tolerated. (5) Chronic narcotic use: Chronic neck and back pain treated with long acting morphine and percocet for breakthrough. Underwent severe withdrawal from narcotics requiring prolonged sedation with Propofol. She is now off all narcotics for several days and not requesting this. She reports feeling good and denies any pain. 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 She has not required any more narcotics and she will not be given any narcotics on discharge She agreed not to use any more narcotics as an outpatient Has been getting gabapentin and dose has been increased to 600mg 3 times daily She was strongly advised not to use any more narcotics which she may have at home (6) Opiate withdrawal: She has been febrile and agitated while in the ICU and difficult to get off sedation and mechanical ventilation. She was intubated and required persistent sedation with her mental status prolonging her intubation. Etiology of encephalopathy was from multiple factors including hypoxic injury, Covid encephalopathy, delirium and opiate withdrawal. She has been on gabapentin and continues on thiamine thiamine and folic acid. Still has the symptoms of withdrawal (7) GERD (gastroesophageal reflux disease): Continue PPI. (8) Diabetes mellitus type 2, controlled: Diet controlled diabetic with an A1C 7.3. She has consistently not required any insulin coverage here. No BSG or insulin coverage at this time. Follow up as outpatient. (9) DVT prophylaxis: Lovenox Full code Disposition-ok to go home when reliably tolerating food and feeling better. Possibly in the next 1-2 days. She will be discharged home this afternoon Admission and Anticipated Discharge Date Admission Date: January 02, 2020 Subjective 01/14/2020 The patient was seen and examined in telemetry/Covid unit She has been feeling a lot better but is still having significant tachycardia She denies any symptoms of palpitations, chest pain or shortness of breath She has been ambulating well in the room 01/15/2020 The patient was seen and examined in telemetry/Covid unit She remains tachycardic and today she complains to have acute abdominal pain with nausea She moved her bowel but denies to any fever and/or chills She does not have any shortness of breath and the saturation remains stable on room air 01/16/2020 The patient was seen and examined in telemetry/Covid unit Her abdominal pain is much better She has had a fall without any significant injury She is convinced to stay another night before going home She has been complaining of some indigestion/epigastric discomfort with food 01/17/2020 The patient was seen and examined in telemetry/Covid unit She has been feeling a lot better Denies any complaints whatsoever and wants to go home She has had physical therapy and she can go home as per the recommendation She has minimal anxiety but no other significant symptoms Review of Systems Review of Systems: All systems reviewed and are unremarkable except as noted below Cardiovascular: no chest pain, no dyspnea at rest, no palpitations and no edema (Trace edema bilaterally) Psychiatric: + anxiety; no irritability, no panic attacks and no confusion Physical Exam Physical Exam: Lying in bed without any acute distress Constitutional: well developed and well nourished; no acute distress, not ill appearing and not in distress Eyes: PERRL, conjunctivae normal, anicteric sclerae ENMT: external ear and nose normal, oropharynx normal Neck: trachea midline, no thyromegaly Respiratory: no respiratory distress Auscultation: lungs clear to auscultation bilaterally Cardiovascular: Rate/Rhythm: regular rhythm and + tachycardic Heart Sounds: no murmur Extremities: no edema Gastrointestinal (Abdomen): Inspection/Auscultation: normal bowel sounds; abdomen not distended Percussion/Palpation: + abdomen tender (Extremely tender all over) and abdomen soft Neurologic: Alert, awake and oriented x3. No focal sensory and motor deficit appreciated Psychiatric: A+Ox3, euthymic affect Affect: + anxious affect Insight: g ood insight Judgement: good judgement Lymphatic: no cervical or axillary lymphadenopathy Results & Data Results & Data ([facility]) Vital Signs (Past 12 Hours) Vital Signs Temp Pulse Pulse Resp BP Pulse Ox 01/17/20 12:02 98 01/17/20 11:21 37 C 112 H 16 123/90 100 01/17/20 08:15 37.2 C 124 H 18 122/74 100 01/17/20 08:00 115 H 01/17/20 02:54 36.9 C 107 H 20 123/77 99 Medications Administered Current Inpatient Medications Acetaminophen (Acetaminophen 325 Mg Tab) 650 mg PO Q4H PRN PRN Reason: Pain or Fever Stop: 02/08/20 17:51 Last Admin: 01/16/20 23:01 Dose: 650 mg Documented by: Diphenhydramine HCl (Diphenhydramine Capsule 25 Mg Cap) 25 mg PO HS PRN PRN Reason: Sleep Stop: 02/15/20 11:23 Last Admin: 01/16/20 23:01 Dose: 25 mg Documented by: Enoxaparin Sodium (Enoxaparin Inj 40 Mg/0.4 Ml Syr) 40 mg SQ BID [facility] Stop: 02/01/20 20:59 Last Admin: 01/17/20 08:29 Dose: 40 mg Documented by: Folic Acid (Folic Acid 1 Mg Tab) 1 mg PO [facility] Stop: 02/05/20 09:29 Last Admin: 01/17/20 08:26 Dose: 1 mg Documented by: Gabapentin (Gabapentin 300 Mg Cap) 600 mg PO TID [facility] Stop: 02/15/20 13:59 Last Admin: 01/17/20 08:29 Dose: 600 mg Documented by: Potassium Chloride/Sodium Chloride (Normal Saline W/20 Meq Kcl) 20 meq in 1,000 mls @ 125 mls/hr IV .Q8H [facility] Stop: 01/17/20 15:49 Last Admin: 01/17/20 04:15 Dose: 80 mls/hr Documented by: Loperamide HCl (Loperamide Hcl 2 Mg Cap) 2 mg PO Q2H PRN PRN Reason: Diarrhea Stop: 02/15/20 11:23 Metoprolol Succinate (Metoprolol Succ 50mg Ext Rel Tab) [facility] [place] Stop: 02/14/20 08:59 Last Admin: 01/17/20 08:28 Dose: 50 mg Documented by: Ondansetron HCl (Ondansetron Inj 2 Mg/Ml 2 Ml Vial) 4 mg IV Q8H PRN PRN Reason: Nausea Stop: 02/11/20 18:20 Last Admin: 01/15/20 22:03 Dose: 4 mg Documented by: Polyethylene Glycol (Polyethylene (Miralax) 17 Gm Pack) 17 gm PO DAILY PRN PRN Reason: Constipation Stop: 02/04/20 10:15 Last Admin: 01/13/20 11:34 Dose: 17 gm Documented by: Promethazine HCl (Promethazine Hcl 25 Mg Tab) 25 mg PO Q6H PRN PRN Reason: Nausea And Vomiting Stop: 02/08/20 17:53 Last Admin: 01/15/20 19:43 Dose: 25 mg Documented by: Quetiapine Fumarate (Quetiapine Fumarate 25 Mg Tablet) 12.5 mg PO BID [facility] Stop: 02/12/20 20:59 Last Admin: 01/17/20 08:26 Dose: 12.5 mg Documented by: Senna/Docusate Sodium (Docusate Sodium/Senna 50/8.6mg Tab) 1 tab [facility] [place] Stop: 02/04/20 10:14 Last Admin: 01/17/20 08:28 Dose: Not Given Documented by: Sucralfate (Sucralfate 1 Gm/10 Ml Udc) 1 gm PO [facility] Stop: 02/15/20 11:29 Last Admin: 01/17/20 11:30 Dose: Not Given Documented by: Thiamine HCl (Thiamine Hcl 100 Mg Tab) 100 mg PO DAILY [facility] Stop: 02/08/20 08:59 Last Admin: 01/17/20 08:26 Dose: 100 mg Documented by: Venlafaxine HCl (Venlafaxine Hcl Xr 75 Mg Capxr) 75 mg PO [facility] Stop: 02/08/20 08:59 Last Admin: 01/17/20 08:27 Dose: 75 mg Documented by: Vitamin D (Cholecalciferol 400 Units 10 Mcg Tab) 400 units PO [facility] Stop: 02/09/20 08:59 Last Admin: 01/17/20 08:27 Dose: 400 units Documented by:
--- NOTE | 2020-01-18 08:22 | Discharge Summary ---
Date of Service January 18, 2020 Admission HPI Per Admitting Provider 44 YO female followed by Dr. Barone. History of diabetes mellitus type 2, chronic pain, and other problems noted below. The following history obtained from ED staff, clinic records, son by phone. Pt developed fever and cough about 1 week ago. She was seen at [facility] 2 days prior to admission. Vital signs and O2 sats were OK. SARS-CoV-2 PCR was ordered (results pending). Today she was more SOB and confused. EMS summoned. O2 saturation was 72% in the field. Received O2 and brought to the ED for further management. In the ED she was noted to be febrile and tachycardic. She was very confused and agitated. Intubated in ED and placed on mechanical ventilation. Son diagnosed with COVID-19 this week. Admission Exam Per Admitting Provider Physical Exam: VS- as noted Constitutional- adult female, acutely ill Eyes- PERRL, anicteric sclerae, conjunctivae normal ENMT- external ear and nose normal; oral ETT Neck- trachea midline; no thyromegaly Respiratory- scattered rales; no significant wheezing Cardiovascular- distant heart sounds; RRR, no murmur/gallop/rub appreciated; no JVD; no pretibial edema; normal capillary refill Chest- no abnormalities Abdomen- normal bowel sounds, soft, nontender, nondistended; no palpable masses or hepatosplenomegaly Musculoskeletal- no cyanosis Skin- warm & dry; normal color; no rashes Neurologic- sedated; moves all 4 extremities Psychiatric- sedated Genitourinary- Torrez cath Lymphatic- no cervical adenopathy Principal Diagnosis Acute respiratory failure secondary to Covid pneumonia which required ventilatory support, opioid withdrawal with history of chronic narcotic use, SIMIN, diabetes type 2 Discharge Exam Constitutional well developed and well nourished; no acute distress, not ill appearing and not in distress Eyes PERRL, conjunctivae normal, anicteric sclerae ENMT external ear and nose normal, oropharynx normal Neck trachea midline, no thyromegaly Respiratory no respiratory distress Auscultation: lungs clear to auscultation bilaterally Cardiovascular Rate/Rhythm: regular rhythm and + tachycardic Heart Sounds: no murmur Extremities: no edema Gastrointestinal (Abdomen) Inspection/Auscultation: normal bowel sounds; abdomen not distended Percussion/Palpation: + abdomen tender (Extremely tender all over) and abdomen soft Psychiatric A+Ox3, euthymic affect Affect: + anxious affect Insight: good insight Judgement: good judgement Lymphatic no cervical or axillary lymphadenopathy Discharge Data Allergies Allergy/AdvReac Type Severity Reaction Status Date / Time prednisone Allergy Unknown Hot/Cold Verified 01/02/20 12:27 flashes, shakiness, emotions run wild. Consultations 01/02/20 14:07 ED Decision to Admit Stat 01/02/20 15:44 Consult Case Management - Discharge Planning Routine Consult Educational Fundraising Director Routine 01/03/20 16:50 Consult Infectious Diseases Routine 01/06/20 09:10 Consult Neurology Routine 01/13/20 05:32 Consult Psychiatry Routine Ordered Studies 01/02/20 10:22 CT angio chest PE protocol Stat 01/02/20 10:32 CT head/brain wo con Stat 01/15/20 13:18 CT abd pelvis wo con Urgent Hospital Course (1) Acute respiratory failure with hypoxia: O2 sats 72% on RA at home when EMS arrived. Intubated in ED. No apparent pulmonary emboli per CTA chest. Hypoxia secondary to COVID pneumonia. Extubated on 01/07 to Precedex and she refused BIPAP. Has h/o SIMIN with ?noncompliance with mask wearing/tolerance. Resolved as she is now on room air. Remains in stable since extubation and has been improving Denies any more shortness of breath and saturation more than 94% on room air Has been getting physical therapy and doing very well Denies any shortness of breath on exertion Persistent tachycardia Likely multifactorial including withdrawal from opioids and/or alcohol and is complicated by severe Kovic 19 pneumonia Blood pressure seems to be high in the diastolic Has been on metoprolol 12.5 mg 3 times daily Metoprolol has been increased to 25 mg 3 times daily We will get PT and OT evaluation to see the effect of ambulation on tachycardia Remains tachycardic Still complains anxiety and unsteadiness Heart rate remains around 110-no palpitation while in ambulation Abdominal pain Generalized since this morning Tender to palpate but remains soft Remains tachycardic with increasing white count Will get CT of the abdomen and pelvis without contrast CT abdomen did show possible pancreatitis and that has been resolved Denies any mid abdominal pain and/or distention (2) Pneumonia due to COVID-19 virus: Patient was seen in outpatient clinic on 12/31/19 with respiratory symptoms. EMS found her profoundly hypoxic in the field when called. Patient presented to ED with fever, dyspnea, hypoxia, delirium on 01/01. Chest x-ray and CT demonstrated bilateral infiltrates consistent with COVID pneumonia. SARS-CoV-2 PCR in ED positive. Received course of remdesivir and dexamethasone, Received 5 day course of azithromycin and continues on Rocephin for MSSA in sputum for total 7 days. Appreciate ID input and recommendation and did not qualify for convalescent plasma Now improved and currently oxygenating well on room air. No symptoms of Covid disease and she is 15 days since the diagnosis of Covid She will be discharged home today and was advised to wear mask for the next 5 days even though she does not have any symptoms of Covid (3) Acute metabolic encephalopathy: [id number], pneumonia, respiratory failure, narcotic use-uses long acting morphine and oxycodone for breakthrough. Required Precedex and Geodon to control agitation She was placed on seroquel 25mg PO BID while in the ICU and per psych recommendations today, will start to wean this down prior to discharge starting tonight. Metabolic encephalopathy is resolved Appreciate psychiatric input and recommendation We will continue current medications as per psychiatrist recommendation Advised to keep follow-up appointment with her outpatient psychiatrist (4) SIMIN (obstructive sleep apnea): Sleep apnea on BiPAP at home. Resume HS BiPAP as tolerated. (5) Chronic narcotic use: Chronic neck and back pain treated with long acting morphine and percocet for breakthrough. Underwent severe withdrawal from narcotics requiring prolonged sedation with Propofol. She is now off all narcotics for several days and not requesting this. She reports feeling good and denies any pain. With her high risk of addiction, would not continue her on any benzodiazepines prison. She has not required any more narcotics and she will not be given any narcotics on discharge She agreed not to use any more narcotics as an outpatient Has been getting gabapentin and dose has been increased to 600mg 3 times daily She was strongly advised not to use any more narcotics which she may have at home (6) Opiate withdrawal: She has been febrile and agitated while in the ICU and difficult to get off sedation and mechanical ventilation. She was intubated and required persistent sedation with her mental status prolonging her intubation. Etiology of encephalopathy was from multiple factors including hypoxic injury, Covid encephalopathy, delirium and opiate withdrawal. She has been on gabapentin and continues on thiamine thiamine and folic acid. Still has the symptoms of withdrawal (7) GERD (gastroesophageal reflux disease): Continue PPI. (8) Diabetes mellitus type 2, controlled: Diet controlled diabetic with an A1C 7.3. She has consistently not required any insulin coverage here. No BSG or insulin coverage at this time. Follow up as outpatient. (9) DVT prophylaxis: Lovenox Full code Disposition-ok to go home when reliably tolerating food and feeling better. Possibly in the next 1-2 days. She will be discharged home this afternoon Total Time Total Time Spent Total Time Spent (In Minutes): 45 minutes Total Time Includes: Examination of the Patient, Discharge Planning, Medication Reconciliation and Communication With Other Providers Discharge Plan Discharge Items Patient Disposition: Home - Self-Care Reason For Visit: COVID, RESP FAILURE Discharge Diagnosis: Acute respiratory failure secondary to Covid pneumonia which required ventilatory support, opioid withdrawal with history of chronic narcotic use, SIMIN, diabetes type 2 Activity: Resume your previous activity Non-emergency contact: Primary Care Provider Call non-emergency contact if: you have any medication questions and your symptoms worsen Follow-up/Referrals: Neal Barone MD [Primary Care Provider] - (Your doctor's office will call on Sunday with an appointment within 7 days.) Diet: Carb Consistent or DM2 Addtl Attending Provider Instructions: Please take it easy for the next few days Take extra precaution to avoid falls Do not use any more narcotics Continue the reduced dose of gabapentin and take Tylenol for additional pain control You need to be isolated for at least 5 more days Home Isolation COVID-19 Instructions The following information about Home Isolation is from the CDC Website: https://www.cdc.gov/coronavirus/2019-ncov/hcp/bacnybqy-vlphuvf-zxdtfz.html Stay home except to get medical care People who are mildly ill with COVID-19 are able to isolate at home during their illness. You should restrict activities outside your home, except for getting medical care. Do not go to work, school, or public areas. Avoid using public transportation, ride-sharing, or taxis. Separate yourself from other people and animals in your home People: As much as possible, you should stay in a specific room and away from other people in your home. Also, you should use a separate bathroom, if available. Animals: You should restrict contact with pets and other animals while you are sick with COVID-19, just like you would around other people. Although there have not been reports of pets or other animals becoming sick with COVID-19, it is still recommended that people sick with COVID-19 limit contact with animals until more information is known about the virus. When possible, have another member of your household care for your animals while you are sick. If you are sick with COVID-19, avoid contact with your pet, including petting, snuggling, being kissed or licked, and sharing food. If you must care for your pet or be around animals while you are sick, wash your hands before and after you interact with pets and wear a face mask. Call ahead before visiting your doctor If you have a medical appointment, call the healthcare provider and tell them that you have or may have COVID-19. This will help the healthcare providers office take steps to keep other people from getting infected or exposed. Wear a face mask You should wear a face mask when you are around other people (e.g., sharing a room or vehicle) or pets and before you enter a healthcare providers office. If you are not able to wear a face mask (for example, because it causes trouble breathing), then people who live with you should not stay in the same room with you, or they should wear a face mask if they enter your room. Cover your coughs and sneezes Cover your mouth and nose with a tissue when you cough or sneeze. Throw used tissues in a lined trash can. Immediately wash your hands with soap and water for at least 20 seconds or, if soap and water are not available, clean your hands with an alcohol-based hand finisher hot strip that contains at least 60% alcohol. Clean your hands often Wash your hands often with soap and water for at least 20 seconds, especially after blowing your nose, coughing, or sneezing; going to the bathroom; and before eating or preparing food. If soap and water are not readily available, use an alcohol-based hand finisher hot strip with at least 60% alcohol, covering all surfaces of your hands and rubbing them together until they feel dry. Soap and water are the best option if hands are visibly dirty. Avoid touching your eyes, nose, and mouth with unwashed hands. Avoid sharing personal household items You should not share dishes, drinking glasses, cups, eating utensils, towels, or bedding with other people or pets in your home. After using these items, they should be washed thoroughly with soap and water. Clean all high-touch surfaces everyday High touch surfaces include counters, tabletops, doorknobs, bathroom fixtures, toilets, phones, keyboards, tablets, and bedside tables. Also, clean any surfaces that may have blood, stool, or body fluids on them. Use a household cleaning spray or wipe, according to the label instructions. Labels contain instructions for safe and effective use of the cleaning product including precautions you should take when applying the product, such as wearing gloves and making sure you have good ventilation during use of the product. Monitor your symptoms Seek prompt medical attention if your illness is worsening (e.g., difficulty breathing).Beforeseeking care, call your healthcare provider and tell them that you have, or are being evaluated for, COVID-19. Put on a face mask before you enter the facility. These steps will help the healthcare providers office to keep other people in the office or waiting room from getting infected or exposed. Ask your healthcare provider to call the local or state health department. Persons who are placed under active monitoring or facilitated self- monitoring should follow instructions provided by their local health department or occupational health professionals, as appropriate. When working with your local health department check their available hours. If you have a medical emergency and need to call 911, notify the dispatch personnel that you have, or are being evaluated for COVID-19. If possible, put on a face mask before emergency medical services arrive. Discontinuing home isolation Patients with confirmed COVID-19 should remain under home isolation precautions until the risk of secondary transmission to others is thought to be low. The decision to discontinue home isolation precautions should be made on a [id number] basis, in consultation with healthcare providers and state and local health departments. Pending Studies at Discharge: No Stand-Alone Forms: My [facility], Smoking Cessation Medications and DC Order Prescriptions: New metoprolol succinate 50 mg Tablet Extended Release 24 Hr 50 mg PO QAM Qty: 30 RF: 0 gabapentin 300 mg Capsule 600 mg PO TID Qty: 180 RF: 0 folic acid 1 mg Tablet 1 mg PO QAM Qty: 30 RF: 0 thiamine HCl (vitamin B1) [Vitamin B-1] 100 mg Tablet 100 mg PO DAILY Qty: 30 RF: 0 sucralfate 1 gram tablet 1 g PO BID Qty: 60 RF: 0 Continued cyclobenzaprine 10 mg tablet 10 mg PO TID PRN (Reason: Muscle Spasm) RF: 0 sennosides [senna] 8.6 mg Tablet 34.4 mg PO QAM PRN (Reason: Constipation) RF: 0 venlafaxine 75 mg capsule,extended release 24hr 75 mg PO DAILY RF: 0 polyethylene glycol 3350 [Miralax] 17 gram Powder In Packet 17 g PO DAILY PRN (Reason: Constipation) RF: 0 omeprazole 20 mg capsule,delayed release(DR/EC) 20 mg PO DAILYBB RF: 0 albuterol sulfate 90 mcg/actuation HFA aerosol inhaler 2 puff INHALATION QID PRN (Reason: Shortness Of Breath) RF: 0 cholecalciferol (vitamin D3) [Vitamin D3] 10 mcg (400 unit) Tablet 10 mcg PO QAM RF: 0 pyridoxine (vitamin B6) [Vitamin B-6] 250 mg Tablet 250 mg PO QAM RF: 0 buspirone 15 mg Tablet 7.5 - 15 mg PO BID PRN (Reason: Panic Attack(S)) RF: 0 diclofenac sodium [Voltaren] 1 % Gel 4 g TOPICAL QID RF: 0 Hair,Skin and Nails 1 mg iron-66.7 mcg-1,000 mcg Tablet 1 tab PO DAILY RF: 0 Discontinued gabapentin 600 mg tablet 1,200 mg PO TID RF: 0 oxycodone-acetaminophen 5-325 mg tablet 1 tab PO Q8H PRN (Reason: Severe Pain (Scale Score 7-10)) RF: 0 indomethacin 50 mg capsule 50 mg PO TIDM PRN (Reason: Pain) RF: 0 morphine 15 mg tablet extended release 15 mg PO BID RF: 0 topiramate 25 mg tablet 25 mg PO BID RF: 0 Discharge Orders: Discharge Order (Routine); Ordered 01/17/20 Ordered By: Anjelica Jones Admission Data Admit Date/Time: 01/02/20 14:12 Attending Provider: Anjelica Jones Admit Provider: Crow Stapleton Primary Care Provider: Neal Barone Other Providers: Vikki Grace ; Crow Stapleton ; Luigi Ross ; Jesus Thakkar ; Best Bella ; Alvarado Frost I. ; Henry Huerta II ; Keira Mercado ; Nik Pierce ; Tierra Ortiz ; [place] ; Tierra Zamorano ; Kehinde Waller ; Katie Muhammad Other Interventions: Discharge Summary Assessment (RN) Last Done: 01/17/20 14:14
== END 2020-01-17 15:02 | disposition home or self-care (01) | DRG 207 ==
LOC: ED 10:10 → SUATTDRO 14:12 → 1E 14:12 → 2E 01-09 10:43 → 2S 01-16 15:39